=== PATIENT | male | born 1970 | race Caucasian/White ===

== ENCOUNTER 2017-06-16 08:27 | Emergency (ER) | payer MEDICARE, MEDICAID ==
[~2017-06-16] VITALS: Ht 170.2 cm; Wt 90.9 kg
[~2017-06-16 08:27] MED LIST: CARB200T PO; CITA20TA2 PO; IBUP-1986 PO; KEP500T PO; ONDA4TAB6 PO; PRAZ1CAP2 PO; QUET100T33 PO; TOPI100T18 PO; TRAZ-146 PO
[2017-06-16 08:35] VITALS: BP 129/97
== END 2017-06-16 09:03 | disposition home or self-care (01) ==
LOC: ER 08:28
DX: T14.8XXA Other injury of unspecified body region, initial encounter (principal); F15.10 Other stimulant abuse, uncomplicated; L50.9 Urticaria, unspecified; I10 Essential (primary) hypertension; Z98.890 Other specified postprocedural states; Z79.899 Other long term (current) drug therapy; W57.XXXA Bitten or stung by nonvenomous insect and other nonvenomous arthropods, initial encounter; Y93.89 Activity, other specified; Y92.89 Other specified places as the place of occurrence of the external cause; Y99.8 Other external cause status
CPT/HCPCS: 99281

== ENCOUNTER 2017-06-21 09:28 | Emergency (ER) | payer MEDICARE, MEDICAID ==
[~2017-06-21] VITALS: Ht 170.2 cm; Wt 90.0 kg
[2017-06-21 09:47] VITALS: BP 168/104
[2017-06-21] MEDS ORDERED: PERM60CR19 TP (12:00)
== END 2017-06-21 12:08 | disposition home or self-care (01) ==
LOC: ER 09:29
DX: B86 Scabies (principal); I10 Essential (primary) hypertension; F15.10 Other stimulant abuse, uncomplicated; Z88.8 Allergy status to other drugs, medicaments and biological substances; Z79.899 Other long term (current) drug therapy
CPT/HCPCS: 99283

== ENCOUNTER 2017-07-31 22:57 | Emergency (ER) | payer MEDICARE, MEDICAID ==
[~2017-07-31] VITALS: Ht 170.2 cm; Wt 84.7 kg
[2017-07-31] MEDS ORDERED: diphenhydrAMINE 25mg capsule PO ONE (23:55)
[2017-08-01 00:30] LABS: BASOPHILS % (AUTO) 0.3 % (0-1); EOSINOPHILS # (AUTO) 0.1 X10'3 (0-0.9); EOSINOPHILS % (AUTO) 1.9 % (0-6); HEMATOCRIT 45.2 % (42.0-52.0); HEMOGLOBIN 15.8 g/dl (14.0-17.9); LYMPHOCYTES # (AUTO) 1.4 X10'3 (1.1-4.8); LYMPHOCYTES % (AUTO) 20.4 % (21-51); MEAN CORPUSCULAR HEMOGLOBIN 31.2 PG (27.0-31.0); MEAN CORPUSCULAR HGB CONC 34.9 % (33.0-36.5); MEAN CORPUSCULAR VOLUME 89.5 FL (78-98); MEAN PLATELET VOLUME 7.9 FL (7.4-10.4); MONOCYTES # (AUTO) 0.6 X10'3 (0-0.9); MONOCYTES % (AUTO) 8.8 % (2-12); NEUTROPHILS # (AUTO) 4.7 X10'3 (1.8-7.7); NEUTROPHILS % (AUTO) 68.6 % (42-75); PLATELET COUNT 237 X10'3 (140-440); RED BLOOD COUNT 5.05 X10'6 (4.70-6.10); WHITE BLOOD COUNT 6.8 X10'3 (4.5-11.0)
[2017-08-01 00:30] LABS: CLARITY,URINE CLEAR (Clear); COLOR,URINE YELLOW (Yellow); GLUCOSE, URINE 250 mg/dl (Neg); KETONES,URINE TRACE mg/dl (Neg); LEUKOCYTE ESTERASE ,URINE NEGATIVE (Neg); NITRITES, URINE NEGATIVE (Neg); OCCULT BLOOD,URINE MODERATE (Neg); PROTEIN,URINE NEGATIVE (Neg)
[2017-08-01 00:35] LABS: BACTERIA,URINE NONE SEEN /HPF (Neg); RBC,URINE 0-2 /HPF (0-2); SQUAMOUS EPITHELIAL CELL,UR FEW /LPF (FEW); UA COLLECTION TYPE CLN CATCH MIDSTREAM; WBC,URINE NONE SEEN /HPF (0-4)
[2017-08-01 00:43] LABS: ALANINE AMINOTRANSFERASE 29 U/L (12-78); ALBUMIN 4.3 G/DL (3.4-5.0); ALBUMIN/GLOBULIN RATIO 1.2 (1.1-1.5); ALKALINE PHOSPHATASE 96 IU/L (46-116); ANION GAP 16 (8-16); ASPARTATE AMINO TRANSFERASE 24 U/L (10-37); BILIRUBIN,TOTAL 0.7 MG/DL (0.1-1.0); BLOOD UREA NITROGEN 6 MG/DL (7-18); BUN/CREATININE RATIO 8.1 (5.4-32.0); CALCIUM 8.8 MG/DL (8.5-10.1); CHLORIDE 95 MMOL/L (99-107); CREATININE 0.74 MG/DL (0.60-1.10); GLUCOSE 147 MG/DL (70-104); POTASSIUM 3.5 MMOL/L (3.5-5.1); SODIUM 132 MMOL/L (135-145); TOTAL CARBON DIOXIDE 21.4 MMOL/L (24-32); eGFR > 90 ML/MIN
[2017-08-01 00:44] LABS: URINE AMPHETAMINE SCREEN POSITIVE (Neg); URINE BARBITUATE SCREEN NEGATIVE (Neg); URINE BENZODIAZEPINES SCREEN NEGATIVE (Neg); URINE CANNABINOID SCREEN NEGATIVE (Neg); URINE COCAINE SCREEN NEGATIVE (Neg); URINE METHADONE SCREEN NEGATIVE (Neg); URINE OPIATE SCREEN POSITIVE (Neg); URINE PHENCYCLIDINE SCREEN NEGATIVE (Neg)
[2017-08-01 00:58] LABS: ETHANOL 0.096 GM/DL (0.0-0.010)
[2017-08-01 01:00] LABS: ACETAMINOPHEN < 2.0 UG/ML (10-30)
[2017-08-01] MEDS ORDERED: RISP1TAB13 PO (05:16)
[2017-08-01] MEDS: topiramate 100mg tablet PO SCH (07:40)
[2017-08-01] MEDS: levetiracetam 250mg tablet PO SCH ×2 (07:40→20:17)
[2017-08-01] MEDS: risperiDONE 0.5mg tablet PO SCH ×2 (07:41→20:19)
[2017-08-01] MEDS ORDERED: carBAMazepine Ext. Release 200 MG TAB.ER.12H PO SCH (08:00)
[2017-08-01] MEDS ORDERED: phenobarbital inj 260 MG in normal saline 100ml IV soln 99 ML IV STA (11:06)
[2017-08-01] MEDS ORDERED: magnesium oxide 400mg tablet PO ONE (11:10)
[2017-08-01] MEDS ORDERED: normal saline 1000ML IV soln IVB ONE (11:10)
[2017-08-01] MEDS ORDERED: thiamine 100mg tablet PO ONE (11:10)
[2017-08-01] MEDS ORDERED: ARIP5TAB20 PO (15:06)
[2017-08-01] MEDS ORDERED: METF500T6 PO (15:06)
[2017-08-01] MEDS ORDERED: FLUO40CA PO (15:06)
[2017-08-01] MEDS ORDERED: TRAZ-146 PO (15:06)
[2017-08-01] MEDS ORDERED: PRAZ2CAP2 PO (15:06)
[2017-08-01] MEDS: prazosin 1mg capsule PO SCH (20:17)
[2017-08-01] MEDS: metFORMIN 500mg tablet PO SCH (20:17)
[2017-08-01] MEDS: carBAMazepine Ext. Release 200 MG TAB.ER.12H PO SCH (20:19)
[2017-08-01] MEDS ORDERED: traZODone 50mg tablet PO SCH (21:00)
[2017-08-02 07:56] VITALS: BP 127/80
[2017-08-02] MEDS ORDERED: aripiprazole 5mg tablet PO SCH (08:00)
[2017-08-02] MEDS ORDERED: FLUoxetine 20mg capsule PO SCH (08:00)
[2017-08-02] MEDS: prazosin 1mg capsule PO SCH (09:16)
[2017-08-02] MEDS: levetiracetam 250mg tablet PO SCH (09:17)
[2017-08-02] MEDS: carBAMazepine Ext. Release 200 MG TAB.ER.12H PO SCH (09:17)
[2017-08-02] MEDS: risperiDONE 0.5mg tablet PO SCH (09:18)
[2017-08-02] MEDS: metFORMIN 500mg tablet PO SCH (09:18)
[2017-08-02] MEDS: topiramate 100mg tablet PO SCH (09:20)
== END 2017-08-02 15:10 | disposition home or self-care (01) ==
LOC: ER 22:58
DX: R44.3 Hallucinations, unspecified (principal); R45.851 Suicidal ideations; F10.10 Alcohol abuse, uncomplicated; F19.10 Other psychoactive substance abuse, uncomplicated; I10 Essential (primary) hypertension; F17.200 Nicotine dependence, unspecified, uncomplicated; Z79.899 Other long term (current) drug therapy
CPT/HCPCS: 36415; 80053; 80305; 80320; 80329; 81001; 82948; 84443; 85025; 93005; 96365; 99285; J2560; J7030; Q0163

== ENCOUNTER 2017-09-04 19:37 | Emergency (ER) | payer MEDICARE, MEDICAID ==
[~2017-09-04] VITALS: Ht 170.2 cm; Wt 85.0 kg
[~2017-09-04 19:37] MED LIST changes: +ARIP5TAB20 PO; -CITA20TA2 PO; +FLUO40CA PO; -IBUP-1986 PO; +METF500T6 PO; -ONDA4TAB6 PO; -PRAZ1CAP2 PO; +PRAZ2CAP2 PO; -QUET100T33 PO; +RISP1TAB13 PO
[2017-09-04 19:45] VITALS: BP 172/107
[2017-09-04] MEDS ORDERED: PERM60CR19 TP (20:18)
== END 2017-09-04 20:25 | disposition home or self-care (01) ==
LOC: ER 19:37
DX: S60.562A Insect bite (nonvenomous) of left hand, initial encounter (principal); I10 Essential (primary) hypertension; Z86.14 Personal history of Methicillin resistant Staphylococcus aureus infection; Z90.49 Acquired absence of other specified parts of digestive tract; Z88.8 Allergy status to other drugs, medicaments and biological substances; Z79.84 Long term (current) use of oral hypoglycemic drugs; Z79.899 Other long term (current) drug therapy; W57.XXXA Bitten or stung by nonvenomous insect and other nonvenomous arthropods, initial encounter; Y93.89 Activity, other specified; Y92.89 Other specified places as the place of occurrence of the external cause; Y99.8 Other external cause status
CPT/HCPCS: 99284

== ENCOUNTER 2017-10-04 09:11 | Emergency (ER) | payer MEDICARE, MEDICAID ==
[~2017-10-04] VITALS: Ht 584.7 cm; Wt 81.0 kg
[~2017-10-04 09:11] MED LIST changes: +PERM60CR19 TP
[2017-10-04] MEDS ORDERED: OLAN2.5T3 PO (09:45)
[2017-10-04 09:59] LABS: BASOPHILS % (AUTO) 0.4 % (0-1); EOSINOPHILS # (AUTO) 0.1 X10'3 (0-0.9); EOSINOPHILS % (AUTO) 1.8 % (0-6); HEMATOCRIT 40.4 % (42.0-52.0); HEMOGLOBIN 14.3 g/dl (14.0-17.9); LYMPHOCYTES # (AUTO) 1.1 X10'3 (1.1-4.8); LYMPHOCYTES % (AUTO) 15.3 % (21-51); MEAN CORPUSCULAR HEMOGLOBIN 31.8 PG (27.0-31.0); MEAN CORPUSCULAR HGB CONC 35.3 % (33.0-36.5); MEAN CORPUSCULAR VOLUME 90.1 FL (78-98); MEAN PLATELET VOLUME 8.1 FL (7.4-10.4); MONOCYTES # (AUTO) 0.6 X10'3 (0-0.9); MONOCYTES % (AUTO) 8.9 % (2-12); NEUTROPHILS # (AUTO) 5.4 X10'3 (1.8-7.7); NEUTROPHILS % (AUTO) 73.6 % (42-75); PLATELET COUNT 181 X10'3 (140-440); RED BLOOD COUNT 4.49 X10'6 (4.70-6.10); RED CELL DISTRIBUTION WIDTH 13.2 % (11.5-14.5); WHITE BLOOD COUNT 7.3 X10'3 (4.5-11.0)
[2017-10-04 10:09] LABS: COLOR,URINE YELLOW (Yellow); GLUCOSE, URINE NEGATIVE (Neg); KETONES,URINE NEGATIVE (Neg); LEUKOCYTE ESTERASE ,URINE NEGATIVE (Neg); NITRITES, URINE NEGATIVE (Neg); OCCULT BLOOD,URINE SMALL (Neg); PH,URINE 5.5 (4.8-8.0); PROTEIN,URINE TRACE mg/dl (Neg); UROBILINOGEN,URINE 0.2 E.U/dL (0.2-1.0)
[2017-10-04 10:18] LABS: CLARITY,URINE SLIGHTLY CLOUDY (Clear); UA COLLECTION TYPE VOIDED
[2017-10-04 10:20] LABS: URINE AMPHETAMINE SCREEN NEGATIVE (Neg); URINE BARBITUATE SCREEN NEGATIVE (Neg); URINE BENZODIAZEPINES SCREEN NEGATIVE (Neg); URINE CANNABINOID SCREEN NEGATIVE (Neg); URINE COCAINE SCREEN NEGATIVE (Neg); URINE METHADONE SCREEN NEGATIVE (Neg); URINE OPIATE SCREEN NEGATIVE (Neg); URINE PHENCYCLIDINE SCREEN NEGATIVE (Neg); WBC,URINE 0-4 /HPF (0-4)
[2017-10-04 10:21] LABS: ALANINE AMINOTRANSFERASE 30 U/L (12-78); ALBUMIN 4.1 G/DL (3.4-5.0); ALBUMIN/GLOBULIN RATIO 1.1 (1.1-1.5); ALKALINE PHOSPHATASE 107 IU/L (46-116); ANION GAP 11 (8-16); ASPARTATE AMINO TRANSFERASE 22 U/L (10-37); BILIRUBIN,TOTAL 0.5 MG/DL (0.1-1.0); BLOOD UREA NITROGEN 9 MG/DL (7-18); BUN/CREATININE RATIO 8.9 (5.4-32.0); CALCIUM 8.7 MG/DL (8.5-10.1); CHLORIDE 101 MMOL/L (99-107); CREATININE 1.01 MG/DL (0.60-1.10); GLUCOSE 160 MG/DL (70-104); SODIUM 139 MMOL/L (135-145); TOTAL CARBON DIOXIDE 27.2 MMOL/L (24-32); TOTAL PROTEIN 7.8 G/DL (6.4-8.2); eGFR 79 ML/MIN
[2017-10-04 10:21] LABS: RBC,URINE 0-2 /HPF (0-2)
[2017-10-04 10:22] LABS: AMORPHOUS URATES 1+; BACTERIA,URINE NONE SEEN /HPF (Neg); FINE GRANULAR CAST 0-3 /LPF (NEGATIVE); MUCUS STRANDS MODERATE /LPF (Neg); SQUAMOUS EPITHELIAL CELL,UR FEW /LPF (FEW)
[2017-10-04 10:25] LABS: ETHANOL < 0.010 GM/DL (0.0-0.010)
[2017-10-04] MEDS: levetiracetam 250mg tablet PO SCH (20:44)
[2017-10-04] MEDS: risperiDONE 0.5mg tablet PO SCH (20:44)
[2017-10-04] MEDS: carBAMazepine Ext. Release 200 MG TAB.ER.12H PO SCH (20:45)
[2017-10-04] MEDS: metFORMIN 500mg tablet PO SCH (20:45)
[2017-10-04] MEDS ORDERED: prazosin 1mg capsule PO SCH (21:00)
[2017-10-04] MEDS ORDERED: OLANZapine 2.5MG tablet PO SCH (21:00)
[2017-10-04] MEDS ORDERED: traZODone 50mg tablet PO SCH (21:00)
[2017-10-05 05:31] VITALS: BP 123/78
[2017-10-05] MEDS ORDERED: aripiprazole 5mg tablet PO SCH (08:00)
[2017-10-05] MEDS ORDERED: FLUoxetine 20mg capsule PO SCH (08:00)
[2017-10-05] MEDS ORDERED: topiramate 100mg tablet PO SCH (08:00)
[2017-10-05] MEDS: carBAMazepine Ext. Release 200 MG TAB.ER.12H PO SCH (08:49)
[2017-10-05] MEDS: metFORMIN 500mg tablet PO SCH (08:49)
[2017-10-05] MEDS: levetiracetam 250mg tablet PO SCH (08:50)
[2017-10-05] MEDS: risperiDONE 0.5mg tablet PO SCH (08:50)
== END 2017-10-05 10:30 ==
LOC: ER 09:11
DX: R45.851 Suicidal ideations (principal); I10 Essential (primary) hypertension; F15.90 Other stimulant use, unspecified, uncomplicated; Z86.14 Personal history of Methicillin resistant Staphylococcus aureus infection; Z90.49 Acquired absence of other specified parts of digestive tract; Z98.890 Other specified postprocedural states; Z88.8 Allergy status to other drugs, medicaments and biological substances; Z79.84 Long term (current) use of oral hypoglycemic drugs; Z79.899 Other long term (current) drug therapy
CPT/HCPCS: 36415; 80053; 80305; 80320; 81001; 84443; 85025; 99285

== ENCOUNTER 2017-10-04 20:45 | Inpatient (IN) | payer MEDICARE, MEDICAID ==
[~2017-10-04] VITALS: Ht 170.2 cm; Wt 86.0 kg
[~2017-10-04 20:45] MED LIST changes: +OLAN2.5T3 PO
[2017-10-05 10:45] VITALS: BP 148/84
[2017-10-05] MEDS ORDERED: acetaminophen 325mg tablet PO PRN ×2 (12:20)
[2017-10-05] MEDS ORDERED: magnesium hydroxide 30ml (MOM) UD suspension PO PRN (12:20)
[2017-10-05] MEDS ORDERED: mag hydrox/Alum hydrox/simeth 30ml oral suspension PO PRN (12:20)
[2017-10-05 20:00] VITALS: BP 120/78
[2017-10-05] MEDS ORDERED: non-formulary drug (Levetiracetam (Keppra) 2 TAB) PO SCH (20:00)
[2017-10-05] MEDS ORDERED: non-formulary drug (Carbamazepine (Tegretol) 1 TAB) PO SCH (20:00)
[2017-10-05] MEDS ORDERED: RISPERIDONE PO SCH (20:00)
[2017-10-05] MEDS ORDERED: TRAZODONE HCL 200 MG PO SCH (21:00)
[2017-10-05] MEDS ORDERED: OLANZapine 5mg rapidly disint. tablet PO SCH (21:00)
[2017-10-05] MEDS ORDERED: non-formulary drug (Prazosin Hcl 2 MG) PO SCH (21:00)
[2017-10-05 21:06] VITALS: BP 120/78
[2017-10-05] MEDS: traZODone 50mg tablet PO SCH (21:18)
[2017-10-05] MEDS: metFORMIN 500mg tablet PO SCH (21:18)
[2017-10-05] MEDS: prazosin 1mg capsule PO SCH (21:18)
[2017-10-05] MEDS: risperiDONE 0.5mg tablet PO SCH (21:19)
[2017-10-05] MEDS: carBAMazepine 100mg chewable tablet PO SCH (21:20)
[2017-10-05] MEDS: levetiracetam 250mg tablet PO SCH (21:21)
[2017-10-06 07:59] VITALS: BP 152/118
[2017-10-06] MEDS ORDERED: topiramate 100mg tablet PO SCH (08:00)
[2017-10-06] MEDS ORDERED: aripiprazole 5mg tablet PO SCH (08:00)
[2017-10-06] MEDS ORDERED: FLUOXETINE HCL 40 MG PO SCH (08:00)
[2017-10-06] MEDS: metFORMIN 500mg tablet PO SCH ×2 (08:10→20:22)
[2017-10-06] MEDS: carBAMazepine 100mg chewable tablet PO SCH ×2 (08:10→20:22)
[2017-10-06] MEDS: levetiracetam 250mg tablet PO SCH ×2 (08:10→20:22)
[2017-10-06] MEDS: FLUoxetine 20mg capsule PO SCH (08:10)
[2017-10-06] MEDS: risperiDONE 0.5mg tablet PO SCH ×2 (08:11→20:23)
[2017-10-06 08:23] LABS: HEMOGLOBIN A1C 6.8 % (4.5-6.2)
[2017-10-06 08:34] LABS: CHOL/HDL RATIO 5.2 (0.00-4.99); CHOLESTEROL 187 MG/DL (0-200); HDL CHOLESTEROL 36 MG/DL (35-60); LDL CHOLESTEROL 114 MG/DL (50-100); TRIGLYCERIDES 257 MG/DL (20-135)
[2017-10-06 20:00] VITALS: BP 132/80
[2017-10-06] MEDS: prazosin 1mg capsule PO SCH (20:23)
[2017-10-06] MEDS: traZODone 50mg tablet PO SCH (20:23)
[2017-10-07 08:00] VITALS: BP 140/72
[2017-10-07] MEDS ORDERED: aripiprazole 5mg tablet PO SCH (08:00)
[2017-10-07] MEDS: levetiracetam 250mg tablet PO SCH ×2 (08:17→20:22)
[2017-10-07] MEDS: metFORMIN 500mg tablet PO SCH ×2 (08:19→20:21)
[2017-10-07] MEDS: FLUoxetine 20mg capsule PO SCH (08:19)
[2017-10-07] MEDS: carBAMazepine 100mg chewable tablet PO SCH ×2 (08:20→20:22)
[2017-10-07] MEDS: risperiDONE 0.5mg tablet PO SCH ×2 (08:20→20:23)
[2017-10-07 19:00] VITALS: BP 137/75
[2017-10-07] MEDS: traZODone 50mg tablet PO SCH (20:22)
[2017-10-07] MEDS: prazosin 1mg capsule PO SCH (20:23)
[2017-10-08 08:00] VITALS: BP 143/78
[2017-10-08] MEDS: levetiracetam 250mg tablet PO SCH ×2 (08:01→20:11)
[2017-10-08] MEDS: metFORMIN 500mg tablet PO SCH ×2 (08:01→20:11)
[2017-10-08] MEDS: FLUoxetine 20mg capsule PO SCH (08:02)
[2017-10-08] MEDS: aripiprazole 5mg tablet PO SCH (08:02)
[2017-10-08] MEDS: carBAMazepine 100mg chewable tablet PO SCH ×2 (08:02→20:12)
[2017-10-08 20:08] VITALS: BP 120/70
[2017-10-08] MEDS: prazosin 1mg capsule PO SCH (20:12)
[2017-10-08] MEDS: traZODone 50mg tablet PO SCH (20:12)
[2017-10-08] MEDS: risperiDONE 0.5mg tablet PO SCH (20:13)
[2017-10-09] MEDS: levetiracetam 250mg tablet PO SCH ×2 (07:43→20:22)
[2017-10-09] MEDS: metFORMIN 500mg tablet PO SCH ×2 (07:43→20:22)
[2017-10-09] MEDS: FLUoxetine 20mg capsule PO SCH (07:43)
[2017-10-09] MEDS: carBAMazepine 100mg chewable tablet PO SCH ×2 (07:43→20:21)
[2017-10-09 08:00] VITALS: BP 133/88
[2017-10-09] MEDS: aripiprazole 5mg tablet PO SCH (08:15)
[2017-10-09] MEDS ORDERED: aripiprazole 5mg tablet PO ONE (15:10)
[2017-10-09 19:29] VITALS: BP 157/96
[2017-10-09] MEDS: prazosin 1mg capsule PO SCH (20:21)
[2017-10-09] MEDS: traZODone 50mg tablet PO SCH (20:22)
[2017-10-10] MEDS: levetiracetam 250mg tablet PO SCH ×2 (07:54→20:35)
[2017-10-10] MEDS: metFORMIN 500mg tablet PO SCH ×2 (07:54→20:35)
[2017-10-10] MEDS: FLUoxetine 20mg capsule PO SCH (07:54)
[2017-10-10] MEDS: carBAMazepine 100mg chewable tablet PO SCH ×2 (07:55→20:35)
[2017-10-10 08:00] VITALS: BP 133/87
[2017-10-10 19:53] VITALS: BP 138/81
[2017-10-10] MEDS: prazosin 1mg capsule PO SCH (20:34)
[2017-10-10] MEDS: aripiprazole 5mg tablet PO SCH (20:34)
[2017-10-10] MEDS: traZODone 50mg tablet PO SCH (20:35)
[2017-10-11 08:00] VITALS: BP 131/83
[2017-10-11] MEDS: levetiracetam 250mg tablet PO SCH ×2 (08:37→21:02)
[2017-10-11] MEDS: metFORMIN 500mg tablet PO SCH ×2 (08:38→21:03)
[2017-10-11] MEDS: carBAMazepine 100mg chewable tablet PO SCH ×2 (08:38→21:03)
[2017-10-11] MEDS: FLUoxetine 20mg capsule PO SCH (08:38)
[2017-10-11 20:05] VITALS: BP 147/80
[2017-10-11] MEDS: aripiprazole 5mg tablet PO SCH (21:02)
[2017-10-11] MEDS: prazosin 1mg capsule PO SCH (21:02)
[2017-10-11] MEDS: traZODone 50mg tablet PO SCH (21:02)
[2017-10-12 08:00] VITALS: BP 127/76
[2017-10-12] MEDS: metFORMIN 500mg tablet PO SCH (08:06)
[2017-10-12] MEDS: FLUoxetine 20mg capsule PO SCH (08:06)
[2017-10-12] MEDS: carBAMazepine 100mg chewable tablet PO SCH (08:06)
[2017-10-12] MEDS: levetiracetam 250mg tablet PO SCH (08:06)
[2017-10-12] MEDS ORDERED: ARIP30TA11 PO (10:58)
== END 2017-10-12 14:15 | disposition home or self-care (01) | DRG 885 ==
LOC: ADULT MH 20:45
PROVIDERS: ADMIT Psychiatry & Neurology Psychiatry; ATTEND Psychiatry & Neurology Psychiatry
DX: F20.3 Undifferentiated schizophrenia (principal); R45.851 Suicidal ideations; E11.9 Type 2 diabetes mellitus without complications; F10.21 Alcohol dependence, in remission; F15.10 Other stimulant abuse, uncomplicated; F32.9 Major depressive disorder, single episode, unspecified; F43.10 Post-traumatic stress disorder, unspecified; F43.20 Adjustment disorder, unspecified; G40.909 Epilepsy, unspecified, not intractable, without status epilepticus; I10 Essential (primary) hypertension; E66.9 Obesity, unspecified; Z88.8 Allergy status to other drugs, medicaments and biological substances; Z79.84 Long term (current) use of oral hypoglycemic drugs; Z79.899 Other long term (current) drug therapy; Z83.3 Family history of diabetes mellitus; Z68.29 Body mass index [BMI] 29.0-29.9, adult
CPT/HCPCS: 36415; 80061; 82948; 83036

== ENCOUNTER 2018-02-20 06:49 | Emergency (ER) | payer MEDICARE, MEDICAID ==
[~2018-02-20] VITALS: Ht 170.2 cm; Wt 77.3 kg
[~2018-02-20 06:49] MED LIST changes: +ARIP30TA11 PO; -ARIP5TAB20 PO; +METF-950 PO; -METF500T6 PO; -OLAN2.5T3 PO; -PERM60CR19 TP; -RISP1TAB13 PO; -TOPI100T18 PO; -TRAZ-146 PO; +TRAZ-219 PO
[2018-02-20 06:54] VITALS: BP 153/86
[2018-02-20] MEDS ORDERED: LIDOcaine 1.5% w/epinephrine 1:200,000 5ml ampul IJ ONE (07:40)
[2018-02-20] MEDS ORDERED: LIDOcaine 1% w/epiNEPHrine 1:200,000 30ml vial IJ ONE (07:50)
[2018-02-20] MEDS ORDERED: SULF1TAB49 PO (08:17)
== END 2018-02-20 08:49 | disposition home or self-care (01) ==
LOC: ER 06:50
DX: L02.31 Cutaneous abscess of buttock (principal); I10 Essential (primary) hypertension; E11.9 Type 2 diabetes mellitus without complications; Z86.14 Personal history of Methicillin resistant Staphylococcus aureus infection; F15.90 Other stimulant use, unspecified, uncomplicated; Z90.49 Acquired absence of other specified parts of digestive tract; Z88.8 Allergy status to other drugs, medicaments and biological substances; Z79.84 Long term (current) use of oral hypoglycemic drugs; Z79.899 Other long term (current) drug therapy
CPT/HCPCS: 10060; 99283; J3490

== ENCOUNTER 2018-03-26 07:28 | Emergency (ER) | payer MEDICARE, MEDICAID ==
[~2018-03-26] VITALS: Ht 170.2 cm; Wt 81.8 kg
[2018-03-26 07:39] VITALS: BP 144/77
[2018-03-26] MEDS ORDERED: CLIN300C85 PO (07:59)
== END 2018-03-26 08:17 | disposition home or self-care (01) ==
LOC: ER 07:29
DX: L03.317 Cellulitis of buttock (principal); I10 Essential (primary) hypertension; Z86.14 Personal history of Methicillin resistant Staphylococcus aureus infection; F15.90 Other stimulant use, unspecified, uncomplicated; Z90.49 Acquired absence of other specified parts of digestive tract; Z88.8 Allergy status to other drugs, medicaments and biological substances; Z79.84 Long term (current) use of oral hypoglycemic drugs; Z79.899 Other long term (current) drug therapy
CPT/HCPCS: 82948; 99283

== ENCOUNTER 2018-03-31 23:17 | Emergency (ER) | payer MEDICARE, MEDICAID ==
[~2018-03-31] VITALS: Ht 167.6 cm; Wt 79.5 kg
[~2018-03-31 23:17] MED LIST changes: +CLIN300C85 PO
[2018-04-01 01:11] LABS: BASOPHILS % (AUTO) 0.6 % (0-1); EOSINOPHILS # (AUTO) 0.2 X10'3 (0-0.9); EOSINOPHILS % (AUTO) 1.9 % (0-6); HEMATOCRIT 46.3 % (42.0-52.0); HEMOGLOBIN 16.2 g/dl (14.0-17.9); LYMPHOCYTES # (AUTO) 1.1 X10'3 (1.1-4.8); MEAN CORPUSCULAR VOLUME 91.3 FL (78-98); MEAN PLATELET VOLUME 7.4 FL (7.4-10.4); MONOCYTES # (AUTO) 0.5 X10'3 (0-0.9); MONOCYTES % (AUTO) 6.1 % (2-12); NEUTROPHILS # (AUTO) 6.5 X10'3 (1.8-7.7); NEUTROPHILS % (AUTO) 78.4 % (42-75); PLATELET COUNT 294 X10'3 (140-440); RED BLOOD COUNT 5.07 X10'6 (4.70-6.10); RED CELL DISTRIBUTION WIDTH 13.6 % (11.5-14.5); WHITE BLOOD COUNT 8.3 X10'3 (4.5-11.0)
[2018-04-01 01:27] LABS: ALANINE AMINOTRANSFERASE 31 U/L (12-78); ALBUMIN 4.5 G/DL (3.4-5.0); ALBUMIN/GLOBULIN RATIO 1.1 (1.1-1.5); ALKALINE PHOSPHATASE 108 IU/L (46-116); ANION GAP 17 (8-16); ASPARTATE AMINO TRANSFERASE 28 U/L (10-37); BILIRUBIN,TOTAL 0.6 MG/DL (0.1-1.0); BLOOD UREA NITROGEN 9 MG/DL (7-18); BUN/CREATININE RATIO 12.2 (5.4-32.0); CALCIUM 9.3 MG/DL (8.5-10.1); CHLORIDE 91 MMOL/L (99-107); CREATININE 0.74 MG/DL (0.60-1.10); ETHANOL 0.013 GM/DL (0.0-0.010); GLUCOSE 86 MG/DL (70-104); POTASSIUM 4.3 MMOL/L (3.5-5.1); SODIUM 129 MMOL/L (135-145); TOTAL CARBON DIOXIDE 21.2 MMOL/L (24-32); TOTAL PROTEIN 8.7 G/DL (6.4-8.2); eGFR > 90 ML/MIN
[2018-04-01] MEDS ORDERED: CARB200T PO (03:01)
[2018-04-01 03:19] LABS: URINE AMPHETAMINE SCREEN POSITIVE (Neg); URINE BARBITUATE SCREEN NEGATIVE (Neg); URINE BENZODIAZEPINES SCREEN NEGATIVE (Neg); URINE CANNABINOID SCREEN NEGATIVE (Neg); URINE COCAINE SCREEN NEGATIVE (Neg); URINE METHADONE SCREEN NEGATIVE (Neg); URINE OPIATE SCREEN NEGATIVE (Neg); URINE PHENCYCLIDINE SCREEN NEGATIVE (Neg)
--- NOTE | 2018-04-01 07:48 | NUR ---
Patient in bed sleeping appears comfortable. Enviroment is safe. RN has close observation of patient
--- NOTE | 2018-04-01 10:52 | NUR ---
PATIENT IN BED SLEEPING. HE WILL BE EVALUATED BY [facility] TODAY.
--- NOTE | 2018-04-01 14:48 | NUR ---
PATIENT IN BED AWAKE, [facility] AT BEDSIDE.
[2018-04-01] MEDS: clindamycin 150mg capsule PO SCH ×2 (14:57→20:39)
[2018-04-01] MEDS: aripiprazole 5mg tablet PO SCH (20:38)
[2018-04-01] MEDS: traZODone 50mg tablet PO SCH (20:39)
[2018-04-01] MEDS: levetiracetam 250mg tablet PO SCH (20:40)
[2018-04-01] MEDS: carBAMazepine 100mg chewable tablet PO SCH (20:42)
[2018-04-01] MEDS: metFORMIN 500mg tablet PO SCH (20:42)
[2018-04-01] MEDS: prazosin 1mg capsule PO SCH (21:51)
[2018-04-02] MEDS: clindamycin 150mg capsule PO SCH ×4 (02:49→20:25)
--- NOTE | 2018-04-02 04:28 | NUR ---
UP TO BR, IMMEDIATELY BACK TO BED.
--- NOTE | 2018-04-02 07:31 | NUR ---
Patient is sleeping supine. Respirations are even and nonlabored.
[2018-04-02] MEDS: levetiracetam 250mg tablet PO SCH ×2 (08:28→20:25)
[2018-04-02] MEDS: FLUoxetine 20mg capsule PO SCH (08:28)
[2018-04-02] MEDS: carBAMazepine 100mg chewable tablet PO SCH ×2 (08:29→20:25)
[2018-04-02] MEDS: metFORMIN 500mg tablet PO SCH ×2 (08:54→20:25)
--- NOTE | 2018-04-02 09:54 | NUR ---
Patient awoke for breakfast and took a.m. meds. Patient states that he is doing "bad", same as yesterday. Patient now sleeping.
--- NOTE | 2018-04-02 14:53 | NUR ---
Patient has been eating 100% of all meals. Medication compliant. Patient has been sleeping most of the day. Patient does have history of DMII, accucheck was 107. Patient does not check BGM at home.
--- NOTE | 2018-04-02 16:06 | NUR ---
Patient up to the restroom, walking unit. Pt. walks with a slight limp, but is steady on feet. Patient then asked and received a snack. Patient cooperative, depressed.
--- NOTE | 2018-04-02 17:42 | NUR ---
Patient resting comfortably in bed.
--- NOTE | 2018-04-02 18:28 | NUR ---
Report rec'd, [facility]. Eating dinner currently.
--- NOTE | 2018-04-02 18:58 | NUR ---
Patient moved to ER OF Bed 25
--- NOTE | 2018-04-02 19:18 | NUR ---
Resting in bed, awake. Denies new needs.
[2018-04-02] MEDS: aripiprazole 5mg tablet PO SCH (20:24)
[2018-04-02] MEDS: prazosin 1mg capsule PO SCH (20:24)
[2018-04-02] MEDS: traZODone 50mg tablet PO SCH (20:25)
[2018-04-02] MEDS: lactobacillus rhamnosus 10,000 MMU CELLS/CAPSULE PO SCH (20:25)
--- NOTE | 2018-04-02 20:27 | NUR ---
Patient displaying concern/paranoia in regards to thinking that he would not be given his medications. Reassured that he would, and that this RN was administering at this time. Took medications without issues.
--- NOTE | 2018-04-02 20:32 | NUR ---
Patient noted to be telling another patient to "shut up", was redirected, and pt apologized.
--- NOTE | 2018-04-02 21:08 | NUR ---
Patient resting in bed with eyes closed, resp are even and unlabored, appearing to sleep. Will continue to monitor.
--- NOTE | 2018-04-02 22:00 | NUR ---
Resting in bed, continues to appear to sleep comfortably. Will monitor.
--- NOTE | 2018-04-02 22:57 | NUR ---
Laying in bed, eyes closed, resp are even and unlabored, appears to sleep. Will continue to monitor.
--- NOTE | 2018-04-02 23:56 | NUR ---
Laying in bed, eyes closed, resp are even and unlabored, appears to sleep. Will continue to monitor.
--- NOTE | 2018-04-03 01:29 | NUR ---
Resting in bed, appearing to sleep with even and unlabored respirations. No new concerns or issues noted, will continue to monitor.
[2018-04-03] MEDS: clindamycin 150mg capsule PO SCH ×5 (02:00→21:34)
--- NOTE | 2018-04-03 02:45 | NUR ---
Resting in bed, appearing to sleep, will monitor.
--- NOTE | 2018-04-03 02:51 | NUR ---
Refused 0200 dose of antibiotics, explained risks, continued to refuse, "nope, not gonna take it, don't want to be woke up"
--- NOTE | 2018-04-03 02:54 | NUR ---
schedule times changed to awake hours
--- NOTE | 2018-04-03 04:23 | NUR ---
Resting in bed, appearing to sleep, will monitor.
--- NOTE | 2018-04-03 05:03 | NUR ---
Resting in bed, vitals taken, up to BRP, no new concerns.
--- NOTE | 2018-04-03 07:22 | NUR ---
PT SLEEPING, HAS REQUESTED THAT HE NOT BE BOTHERED WHILE SLEEPING. WILL CHECK SUGARS AND GIVE GLUCOPHAGE WHEN PT WAKES.
[2018-04-03] MEDS: metFORMIN 500mg tablet PO SCH ×2 (08:20→17:13)
[2018-04-03] MEDS: levetiracetam 250mg tablet PO SCH ×2 (08:20→21:35)
[2018-04-03] MEDS: FLUoxetine 20mg capsule PO SCH (08:21)
[2018-04-03] MEDS: lactobacillus rhamnosus 10,000 MMU CELLS/CAPSULE PO SCH ×2 (08:22→21:34)
[2018-04-03] MEDS: carBAMazepine 100mg chewable tablet PO SCH ×3 (08:40→21:35)
--- NOTE | 2018-04-03 09:28 | NUR ---
PT STATES HIS CORRECT DOES OF TEGRATOL IS 400MG BID. CHECK MED REC AND THEN CALL PHARMACY TO CHANGE TO MAY. ADMIN TEGRATOL 400MG THIS MORNING. PT IS COOPERATIVE. HAS EATEN ALL BREAKFAST AND IS NOW SLEEPING.
--- NOTE | 2018-04-03 15:09 | NUR ---
PT IS COOPERATIVE WITH BEING WAKENED TO TAKE HIS ABX.
--- NOTE | 2018-04-03 15:37 | NUR ---
PT AMB TO NURSES STATION TO ASK FOR A YOGURT AND JUICE.
--- NOTE | 2018-04-03 16:35 | NUR ---
PT AMB TO NURSING STATION ASKING FOR SOMETHING TO READ. PT GIVEN MAGAZINES FROM OUR STOCK.
--- NOTE | 2018-04-03 16:36 | NUR ---
PT GIVEN SOME READING GLASSES FROM OUR SUPPLY.
--- NOTE | 2018-04-03 17:15 | NUR ---
PT'S WOUND IS HEALING NICELY. NO SCAB, NO REDNESS, NO SWELLING.
--- NOTE | 2018-04-03 19:00 | NUR ---
Client resting in bed, awake. Recent breakup with girlfriend resulted in loss of housing. Client threatened to harm girlfriend. Hx of substance use. Affect us incongruent with reported depression. Client does not want to be awakened for medications if asleep.
[2018-04-03] MEDS ORDERED: carBAMazepine 100mg chewable tablet PO SCH (20:00)
[2018-04-03] MEDS: traZODone 50mg tablet PO SCH (21:34)
[2018-04-03] MEDS: prazosin 1mg capsule PO SCH (21:36)
[2018-04-03] MEDS: aripiprazole 5mg tablet PO SCH (21:36)
--- NOTE | 2018-04-03 21:45 | NUR ---
Client asleep at 20:00. Took meds at 21:30. Does not want to wake for meds in the "middle of the night". Easily irritated. Returned to sleep after meds. Resp even and unlabored.
--- NOTE | 2018-04-03 23:08 | NUR ---
Resting, eye's closed. Resp even and unlabored.
--- NOTE | 2018-04-04 01:37 | NUR ---
Resting in bed, eye's closed. Respirations are even and unlabored.
--- NOTE | 2018-04-04 03:00 | NUR ---
Resting in bed, eye's closed. No obvious distress. Respirations even and unlabored.
--- NOTE | 2018-04-04 05:09 | NUR ---
Resting in bed, eyes closed. Vital signs obtained, cooperative.
[2018-04-04] MEDS: metFORMIN 500mg tablet PO SCH (07:14)
[2018-04-04] MEDS: clindamycin 150mg capsule PO SCH ×2 (07:26→13:15)
[2018-04-04] MEDS: lactobacillus rhamnosus 10,000 MMU CELLS/CAPSULE PO SCH (07:26)
[2018-04-04] MEDS: FLUoxetine 20mg capsule PO SCH (07:26)
[2018-04-04] MEDS: levetiracetam 250mg tablet PO SCH (07:27)
--- NOTE | 2018-04-04 08:00 | NUR ---
Patient sitting at bedside eating breakfast
[2018-04-04] MEDS: carBAMazepine 100mg chewable tablet PO SCH (08:04)
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
[2018-04-04 14:54] VITALS: BP 184/100
--- NOTE | 2018-04-04 15:00 | NUR ---
pt is being discharged per Toni Mccann from [facility]
== END 2018-04-04 15:03 | disposition home or self-care (01) ==
LOC: ER 23:18
DX: R45.851 Suicidal ideations (principal); R45.850 Homicidal ideations; L02.212 Cutaneous abscess of back [any part, except buttock and flank]; I10 Essential (primary) hypertension; Z86.14 Personal history of Methicillin resistant Staphylococcus aureus infection; F15.90 Other stimulant use, unspecified, uncomplicated; Z90.49 Acquired absence of other specified parts of digestive tract; Z88.8 Allergy status to other drugs, medicaments and biological substances; Z79.84 Long term (current) use of oral hypoglycemic drugs; Z79.899 Other long term (current) drug therapy
CPT/HCPCS: 36415; 80053; 80305; 80320; 82948; 83036; 85025; 99285

== ENCOUNTER 2018-04-13 16:47 | Emergency (ER) | payer MEDICARE, MEDICAID ==
[~2018-04-13] VITALS: Ht 170.2 cm; Wt 85.0 kg
[2018-04-13] MEDS ORDERED: LORazepam 2 mg/ml vial IM ONE (17:05)
[2018-04-13] MEDS ORDERED: levetiracetam 250mg tablet PO ONE (17:05)
--- NOTE | 2018-04-13 17:09 | NUR ---
PT IS 47 YO MALE BIB EMS S/P TONIC/CLONIC SZ LASTING FROM 30SEC TO 3MINUTES PER MEDIC, PT WAS ABLE TO LOWER SELF TO GRD BEFORE HAVING SZ, SAID HE IS COMPLIANT WITH TAKING MEDS PRESCRIBED, STAYING AT THE [facility] FOR 30 DAYS,PT IS ALERT, GCS 15, RESP EVEN AND UNLABORED,
[2018-04-13 17:24] LABS: BASOPHILS % (AUTO) 0.4 % (0-1); EOSINOPHILS # (AUTO) 0.1 X10'3 (0-0.9); EOSINOPHILS % (AUTO) 3.1 % (0-6); HEMOGLOBIN 14.7 g/dl (14.0-17.9); LYMPHOCYTES # (AUTO) 1.2 X10'3 (1.1-4.8); LYMPHOCYTES % (AUTO) 27.1 % (21-51); MEAN CORPUSCULAR HEMOGLOBIN 32.2 PG (27.0-31.0); MEAN CORPUSCULAR HGB CONC 35.1 g/dL (33.0-36.5); MEAN CORPUSCULAR VOLUME 91.7 FL (78-98); MEAN PLATELET VOLUME 8.3 FL (7.4-10.4); MONOCYTES # (AUTO) 0.5 X10'3 (0-0.9); MONOCYTES % (AUTO) 10.9 % (2-12); NEUTROPHILS # (AUTO) 2.5 X10'3 (1.8-7.7); NEUTROPHILS % (AUTO) 58.5 % (42-75); PLATELET COUNT 241 X10'3 (140-440); RED BLOOD COUNT 4.58 X10'6 (4.70-6.10); RED CELL DISTRIBUTION WIDTH 13.6 % (11.5-14.5); WHITE BLOOD COUNT 4.3 X10'3 (4.5-11.0)
[2018-04-13 17:35] LABS: ALBUMIN 3.7 G/DL (3.4-5.0); ANION GAP 9 (8-16); BLOOD UREA NITROGEN 12 MG/DL (7-18); CALCIUM 8.7 MG/DL (8.5-10.1); CHLORIDE 102 MMOL/L (99-107); GLUCOSE 176 MG/DL (70-104); POTASSIUM 3.9 MMOL/L (3.5-5.1); SODIUM 138 MMOL/L (135-145); TOTAL CARBON DIOXIDE 26.9 MMOL/L (24-32); eGFR 79 ML/MIN
--- NOTE | 2018-04-13 17:52 | NUR ---
PT IS RESTING QUIETLY ON GURNEY, ALERT, RESP EVEN AND UNLABORED
--- NOTE | 2018-04-13 18:37 | NUR ---
called [facility] at [phone], mail box is full, unable to leave message or talk with anyone
--- NOTE | 2018-04-13 18:42 | NUR ---
contacted [facility] office at [phone], they are next to [facility] and will let them know pt is ready to go back,
[2018-04-13 18:58] VITALS: BP 127/69
--- NOTE | 2018-04-13 19:01 | NUR ---
pt moved to [facility], waiting to hear back for [facility], pt aware we are waiting to confirm he can return to [facility],
--- NOTE | 2018-04-13 19:13 | NUR ---
pt picked up by county worker and to be taken back to the [facility]
== END 2018-04-13 19:13 | disposition home or self-care (01) ==
LOC: ER 16:47
DX: G40.909 Epilepsy, unspecified, not intractable, without status epilepticus (principal); I10 Essential (primary) hypertension; F15.90 Other stimulant use, unspecified, uncomplicated; Z98.890 Other specified postprocedural states; Z90.49 Acquired absence of other specified parts of digestive tract; Z88.8 Allergy status to other drugs, medicaments and biological substances; Z79.899 Other long term (current) drug therapy
CPT/HCPCS: 36415; 80048; 85025; 96372; 99283; J2060

== ENCOUNTER 2018-05-08 14:45 | Emergency (ER) | payer MEDICARE, MEDICAID ==
[~2018-05-08] VITALS: Ht 170.2 cm; Wt 91.5 kg
[2018-05-08 15:05] VITALS: BP 196/101
[2018-05-08] MEDS ORDERED: levetiracetam 250mg tablet PO ONE (15:10)
[2018-05-08] MEDS ORDERED: KEP500T PO (15:13)
[2018-05-08] MEDS ORDERED: LEVE10002 PO (15:13)
== END 2018-05-08 15:25 | disposition home or self-care (01) ==
LOC: ER 14:45
DX: G40.909 Epilepsy, unspecified, not intractable, without status epilepticus (principal); Z76.0 Encounter for issue of repeat prescription; I10 Essential (primary) hypertension; E11.9 Type 2 diabetes mellitus without complications; Z86.14 Personal history of Methicillin resistant Staphylococcus aureus infection; F15.90 Other stimulant use, unspecified, uncomplicated; Z90.49 Acquired absence of other specified parts of digestive tract; Z88.8 Allergy status to other drugs, medicaments and biological substances; Z79.899 Other long term (current) drug therapy
CPT/HCPCS: 99283

== ENCOUNTER 2018-07-16 13:14 | Emergency (ER) | payer MEDICARE, MEDICAID ==
[~2018-07-16] VITALS: Ht 170.2 cm; Wt 86.4 kg
[~2018-07-16 13:14] MED LIST changes: +CLIN-96 PO; -CLIN300C85 PO; +LEVE10002 PO
[2018-07-16 15:02] VITALS: BP 199/107
[2018-07-16] MEDS ORDERED: carBAMazepine Ext. Release 200 MG TAB.ER.12H PO STA (15:09)
[2018-07-16] MEDS ORDERED: levetiracetam 250mg tablet PO ONE (15:10)
[2018-07-16] MEDS ORDERED: LEVE10002 PO (15:17)
[2018-07-16] MEDS ORDERED: CARB300C6 PO (15:17)
== END 2018-07-16 15:29 | disposition home or self-care (01) ==
LOC: ER 13:14
DX: G40.909 Epilepsy, unspecified, not intractable, without status epilepticus (principal); F15.929 Other stimulant use, unspecified with intoxication, unspecified; F10.10 Alcohol abuse, uncomplicated; E11.9 Type 2 diabetes mellitus without complications; Z86.14 Personal history of Methicillin resistant Staphylococcus aureus infection; Z90.49 Acquired absence of other specified parts of digestive tract; I10 Essential (primary) hypertension; F15.90 Other stimulant use, unspecified, uncomplicated; Z88.8 Allergy status to other drugs, medicaments and biological substances; Z79.84 Long term (current) use of oral hypoglycemic drugs; Z79.899 Other long term (current) drug therapy
CPT/HCPCS: 99283

== ENCOUNTER 2018-07-20 15:25 | Emergency (ER) | payer MEDICARE, MEDICAID ==
[~2018-07-20] VITALS: Ht 170.2 cm; Wt 97.8 kg
[~2018-07-20 15:25] MED LIST changes: +CARB300C6 PO
[2018-07-20 16:15] LABS: BASOPHILS % (AUTO) 0.6 % (0-1); EOSINOPHILS # (AUTO) 0.1 X10'3 (0-0.9); EOSINOPHILS % (AUTO) 2.6 % (0-6); HEMATOCRIT 37.1 % (42.0-52.0); HEMOGLOBIN 13.3 g/dl (14.0-17.9); LYMPHOCYTES % (AUTO) 18.9 % (21-51); MEAN CORPUSCULAR HEMOGLOBIN 30.9 PG (27.0-31.0); MEAN CORPUSCULAR HGB CONC 35.8 g/dL (33.0-36.5); MEAN CORPUSCULAR VOLUME 86.3 FL (78-98); MEAN PLATELET VOLUME 8.3 FL (7.4-10.4); MONOCYTES # (AUTO) 0.4 X10'3 (0-0.9); MONOCYTES % (AUTO) 7.8 % (2-12); NEUTROPHILS # (AUTO) 3.7 X10'3 (1.8-7.7); NEUTROPHILS % (AUTO) 70.1 % (42-75); PLATELET COUNT 213 X10'3 (140-440); RED CELL DISTRIBUTION WIDTH 13.2 % (11.5-14.5); WHITE BLOOD COUNT 5.3 X10'3 (4.5-11.0)
[2018-07-20 16:30] LABS: ALANINE AMINOTRANSFERASE 27 U/L (12-78); ALBUMIN 3.8 G/DL (3.4-5.0); ALBUMIN/GLOBULIN RATIO 1.1 (1.1-1.5); ALKALINE PHOSPHATASE 99 IU/L (46-116); ANION GAP 12 (8-16); ASPARTATE AMINO TRANSFERASE 14 U/L (10-37); BILIRUBIN,TOTAL 0.3 MG/DL (0.1-1.0); BLOOD UREA NITROGEN 6 MG/DL (7-18); CALCIUM 8.3 MG/DL (8.5-10.1); CHLORIDE 100 MMOL/L (99-107); CREATININE 0.86 MG/DL (0.60-1.10); ETHANOL 0.103 GM/DL (0.0-0.010); GLUCOSE 188 MG/DL (70-104); POTASSIUM 3.7 MMOL/L (3.5-5.1); SODIUM 136 MMOL/L (135-145); TOTAL CARBON DIOXIDE 24.2 MMOL/L (24-32); TOTAL PROTEIN 7.3 G/DL (6.4-8.2); eGFR > 90 ML/MIN
[2018-07-20 16:32] LABS: URINE AMPHETAMINE SCREEN NEGATIVE (Neg); URINE BARBITUATE SCREEN NEGATIVE (Neg); URINE BENZODIAZEPINES SCREEN NEGATIVE (Neg); URINE CANNABINOID SCREEN NEGATIVE (Neg); URINE COCAINE SCREEN NEGATIVE (Neg); URINE METHADONE SCREEN NEGATIVE (Neg); URINE OPIATE SCREEN NEGATIVE (Neg); URINE PHENCYCLIDINE SCREEN NEGATIVE (Neg)
--- NOTE | 2018-07-20 16:45 | NUR ---
Pt brought to ER overflow from main ER. Alert and oriented x4, calm and cooperative. Pt tired and wanted to rest and is currently sleeping in bed w/o distress. Pt on 1798 hold for SI.
--- NOTE | 2018-07-20 16:59 | NUR ---
md from will be down in the morning to evaluate patient
--- NOTE | 2018-07-20 18:49 | NUR ---
received report. patient finishing dinner. Quietly resting on R side in bed.
--- NOTE | 2018-07-20 20:11 | NUR ---
Patient quietly resting with eyes closed at this time. No change in condition.
--- NOTE | 2018-07-20 20:39 | NUR ---
[facility] mental health doctor in to eval patient. Patient states that he quit his job a few days ago. Having suicidal thoughts on a daily basis.
--- NOTE | 2018-07-20 22:35 | NUR ---
patient sleeping with no s/sx of distress.
--- NOTE | 2018-07-20 23:32 | NUR ---
patient still sleeping. No s/sx of distress. Laying on R side.
--- NOTE | 2018-07-21 01:27 | NUR ---
patient continues to sleep. no change in condition.
--- NOTE | 2018-07-21 02:48 | NUR ---
patient continues to sleep. no change in condition.
--- NOTE | 2018-07-21 05:00 | NUR ---
no change. patient sleeping.
--- NOTE | 2018-07-21 06:30 | NUR ---
Sleeping soundly - snoring - at change of shift observation. Undisturbed at this time.
--- NOTE | 2018-07-21 08:00 | NUR ---
Awakened for breakfast. Sat up and ate the majority of his meal. Asked how he was feeling. Pt. stated "I'm suicidal." Informed hospital documentation states he has a history of diabetes. Patient states "I haven't taken anything for that for years." "I don't have that no more."
--- NOTE | 2018-07-21 11:20 | NUR ---
Slept through the morning. Alex MICHELLE at bedside to perform psychatric evaulation. Afterwards stated "I will order medications for this patient." Also ordered a hemoglobin A1C to determine blood sugar status.
--- NOTE | 2018-07-21 12:39 | NUR ---
pt is in bed supine, wiggling his legs, no s/s of agitation observed
--- NOTE | 2018-07-21 13:10 | NUR ---
Awakened for lunch. Ate 100% of his meal. Returned to sleep immediately afterwards. Patient has stayed in bed except to get up twice to use bathroom. Occasionally makes loud grunting sounds.
--- NOTE | 2018-07-21 18:16 | NUR ---
Patient resting in bed at this time.
[2018-07-21] MEDS ORDERED: olanzapine 10mg tablet PO SCH (21:00)
[2018-07-21] MEDS: carBAMazepine Ext. Release 200 MG TAB.ER.12H PO SCH (21:04)
[2018-07-21] MEDS ORDERED: carBAMazepine Ext. Release 200 MG TAB.ER.12H PO ONE (21:10)
--- NOTE | 2018-07-21 21:56 | NUR ---
PATIENT RESTING AT THIS TIME.
--- NOTE | 2018-07-21 22:00 | NUR ---
PATIENT CONTINUES TO BE SLEEPING.
--- NOTE | 2018-07-21 22:51 | NUR ---
PATIENT CONTINUES TO BE SLEEPING.
--- NOTE | 2018-07-21 23:16 | NUR ---
PATIENT RESTING WELL. PATIENT SNORING OFF AND ON.
--- NOTE | 2018-07-22 00:02 | NUR ---
Patient continues to rest in bed. Will continues to monitor.
--- NOTE | 2018-07-22 01:00 | NUR ---
Patient snoring loudly off and on. Resting well at this time.
--- NOTE | 2018-07-22 02:13 | NUR ---
Patient resp wnl unlabored and resting well.
--- NOTE | 2018-07-22 03:06 | NUR ---
Patient continues to be sleeping at this time.
--- NOTE | 2018-07-22 04:06 | NUR ---
Patient continues to be resting with loud snoring noted. Resp WNL with unlabored breathing.
--- NOTE | 2018-07-22 05:27 | NUR ---
Patient continues to be sleeping at this time.
--- NOTE | 2018-07-22 06:30 | NUR ---
Pt lying in bed, appears to be sleeping.
--- NOTE | 2018-07-22 07:47 | NUR ---
Pt awake, eating breakfast.
[2018-07-22] MEDS: carBAMazepine Ext. Release 200 MG TAB.ER.12H PO SCH (07:50)
[2018-07-22] MEDS ORDERED: levetiracetam 250mg tablet PO ONE (08:00)
[2018-07-22 08:14] VITALS: BP 159/87
--- NOTE | 2018-07-22 09:45 | NUR ---
Pt appears to be sleeping.
--- NOTE | 2018-07-22 10:51 | NUR ---
Pt lying in be, appears to be sleeping.
--- NOTE | 2018-07-22 12:45 | NUR ---
Pt is awake, eating lunch.
--- NOTE | 2018-07-22 14:17 | NUR ---
Pt has been accepted by [facility].
--- NOTE | 2018-07-22 14:35 | NUR ---
Pt transferred upstairs to [facility], wheeled in w/c upstairs accompanied by Balwinder VELIZ and security.
[2018-07-22] MEDS ORDERED: OLAN5TAB5 PO (15:54)
[2018-07-22] MEDS ORDERED: OLAN10TA3 PO (15:55)
== END 2018-07-22 14:36 ==
LOC: ER 15:26
DX: F20.9 Schizophrenia, unspecified (principal); R45.851 Suicidal ideations; I10 Essential (primary) hypertension; E11.9 Type 2 diabetes mellitus without complications; F15.90 Other stimulant use, unspecified, uncomplicated; Z59.0 Homelessness; Z90.49 Acquired absence of other specified parts of digestive tract; Z98.890 Other specified postprocedural states; Z88.8 Allergy status to other drugs, medicaments and biological substances; Z79.899 Other long term (current) drug therapy
CPT/HCPCS: 36415; 80053; 80305; 80320; 83036; 85025; 99285; J3490

== ENCOUNTER 2018-07-22 13:49 | Inpatient (IN) | payer MEDICARE, MEDICAID ==
[~2018-07-22] VITALS: Ht 170.2 cm; Wt 66.1 kg
[2018-07-22] MEDS ORDERED: loperamide 2mg capsule PO PRN (14:00)
[2018-07-22] MEDS ORDERED: tuberculin, purif. prot. deriv. 5 units/0.1ml ID ONE (14:00)
[2018-07-22] MEDS ORDERED: magnesium hydroxide 30ml (MOM) UD suspension PO PRN (14:00)
[2018-07-22] MEDS ORDERED: hydrOXYzine 25 MG tablet PO PRN (14:00)
[2018-07-22] MEDS ORDERED: mag hydrox/Alum hydrox/simeth 30ml oral suspension PO PRN (14:00)
[2018-07-22] MEDS ORDERED: acetaminophen 325mg tablet PO PRN ×4 (14:00→14:09)
[2018-07-22] MEDS ORDERED: OLAN5TAB5 PO (15:54)
[2018-07-22] MEDS ORDERED: OLAN10TA3 PO (15:55)
[2018-07-22 16:18] VITALS: BP 175/97
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
[2018-07-22 20:00] VITALS: BP 134/58
[2018-07-22] MEDS: levetiracetam 250mg tablet PO SCH (20:35)
[2018-07-22] MEDS: carBAMazepine Ext. Release 200 MG TAB.ER.12H PO SCH (20:36)
[2018-07-22] MEDS ORDERED: olanzapine 10mg tablet PO SCH (21:00)
--- NOTE | 2018-07-22 22:41 | NUR ---
Pt states it is normal for him not to have a BM for 4-5 days. Addendum: 07/22/18 at 2244 by Karen Mcclendon RN Amended: Links added.
--- NOTE | 2018-07-23 03:32 | NUR ---
Nursing Progress Note: Legal hold: 5150 Exp. 07/25 @ 1445 Client on involuntary status for DTS. Report received from EMILEE Hawkins with use of SBAR. Why are they here: Pt was placed on a 5150 for DTS after he reported that he is "just tired of living. I just want to get it over with." No recent hx of trauma or events that would cause him to be suicidal. 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 Assessment What has happened this shift: Pt was sleeping at shift change. 1:1 assessment performed at bedside. Pt was sleepy, but was able to get assessment completed. Pt was A&O x4. Reports anxiety 09/21 and depression 09/21. Pt reports passive SI at the moment, but with no plan in place. Pt reports he is still having intermittent AH. Pt stated "I just want to go back to sleep," but was cooperative. When asked when last drink was pt stated a couple days ago and last he used meth was about 1 week ago. Pt states his last BM was about 5 days ago, but this a a normal bowel pattern for him. S/I, H/I: Passive SI, with no plan. 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 Were meds taken: Pt medication compliant Any med S/E: None reported or observed Mental Status Exam Appearance: Disheveled male who looks older than his stated age, wearing green scrubs Eye contact: Fair Behavior: Depressed, fatigued, cooperative Speech: Clear, normal rate and rhythm Mood: Depressed Affect: Flat Thought process: Thought blocking Thought Content: "I just want to go back to sleep" Cognition: A&O x3 Insight: Poor Judgment: Poor Interventions PRN's used: None Therapeutic interventions: 1:1 therapeutic assessment, maintained therapeutic milieu provided active listening with positive feedback, provided medication administration/education as ordered, monitored for change in behavior Restraints/seclusion/emergency medication: N/A Justification of Continued Inpatient Treatment: Pt is depressed and a DTS requiring medication management and a therapeutic milieu to interrupt current crisis.
[2018-07-23 08:29] LABS: CARBAMAZEPINE (TEGRETOL) 11.8 UG/ML (4.0-12.0)
[2018-07-23] MEDS: levetiracetam 250mg tablet PO SCH ×2 (08:52→21:18)
[2018-07-23] MEDS: carBAMazepine Ext. Release 200 MG TAB.ER.12H PO SCH ×2 (08:53→21:17)
[2018-07-23 09:15] VITALS: BP 160/92
[2018-07-23 15:19] LABS: CHOL/HDL RATIO 5.4 (0.00-4.99); CHOLESTEROL 195 MG/DL (0-200); HDL CHOLESTEROL 36 MG/DL (35-60); LDL CHOLESTEROL 110 MG/DL (50-100); TRIGLYCERIDES 302 MG/DL (20-135)
[2018-07-23] MEDS: LORazepam 1 MG tablet PO PRN (17:40)
--- NOTE | 2018-07-23 17:49 | NUR ---
Nursing Progress Note: Legal hold: 5150 Exp. 07/25 @ 1445 Client on involuntary status for DTS. Report received from EMILEE Hawkins with use of SBAR. Why are they here: Pt was placed on a 5150 for DTS after he reported that he is "just tired of living. I just want to get it over with." No recent hx of trauma or events that would cause him to be suicidal. 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 Assessment What has happened this shift: Pt. asleep at change of shift. Pt. came to day room for breakfast but then went back to sleep. 1:1 done at bedside pt. was frustrated with assessment, stating, "too many questions". Pt. states that he is suicidal with plan to shoot himself with a gun. Pt. did not want to discuss his current stressors. Pt. states that he had a seizure two days ago. Pt. took medications and went back to sleep after interview. Pt. had bowel movement today. Pt.'s systolic BP was 170 yesterday and 160 today, RN informed pt.'s provider and we are to cont. to monitor, starting anti-hypertensive if persists. Pt.'s HGA1C 6.7, hospitalist aware. Pt. given Tylenol for headache and ativan for anxiety. S/I, H/I: SI with plan to shoot himself with a gun. A/VH: Pt. reports AH, becomes frustrated when I ask what they say, states, "A constant chattering". Sleep: Pt. throughout shift. ADL's: Independent Group attendance: Did not attend group. Were meds taken: Y Any med S/E: None reported or observed Mental Status Exam Appearance: Disheveled male who looks older than his stated age, wearing green scrubs Eye contact: Fair Behavior: Depressed, fatigued, frustrated with assessments Speech: Clear, normal rate and rhythm Mood: Depressed Affect: Flat Thought process: Thought blocking Thought Content: "I'm tired". Cognition: A&O x3 not aware of time. Insight: Poor Judgment: Poor Interventions PRN's used: Tylenol and Ativan Therapeutic interventions: 1:1 therapeutic assessment, maintained therapeutic milieu provided active listening with positive feedback, provided medication administration/education as ordered, monitored for change in behavior Restraints/seclusion/emergency medication: N/A Justification of Continued Inpatient Treatment: Pt is depressed and a DTS requiring medication management and a therapeutic milieu to interrupt current crisis.
[2018-07-23 19:00] VITALS: BP 145/79
[2018-07-23] MEDS: OLANZAPINE 5 MG TABLET PO SCH (21:18)
--- NOTE | 2018-07-24 02:08 | NUR ---
Nursing Progress Note: Legal hold: 5150 Exp. 07/25 @ 1445 Client on involuntary status for DTS. Report received from EMILEE Hawkins with use of SBAR. Why are they here: Pt was placed on a 5150 for DTS after he reported that he is "just tired of living. I just want to get it over with." No recent hx of trauma or events that would cause him to be suicidal. 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 Assessment What has happened this shift: Pt was sleeping in room at shift change, no apparent distress observed. Pt did not get up for HS snack. Pt was reluctant when asked to perform 1:1 assessment. Pt was medication compliant, but answered questions were mumbled, abrupt or short in response. Pt states "yes, I am still hearing voices," "yes, I want to kill myself," but didn't suggest a plan. Pt reported his anxiety and depression both a /10. Observed pt sleeping soundly throughout shift, AEB pt's snoring. Pt's SBP was 145 S/I, H/I: Passive SI, with no plan. 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 Were meds taken: Pt medication compliant Any med S/E: None reported or observed Mental Status Exam Appearance: Disheveled male who looks older than his stated age, wearing green scrubs Eye contact: Fair Behavior: Depressed, fatigued, reluctant Speech: Mumbled, abrupt Mood: Depressed Affect: Flat Thought process: Thought blocking Thought Content: "I just want to go back to sleep" Cognition: A&O x3 Insight: Poor Judgment: Poor Interventions PRN's used: None Therapeutic interventions: 1:1 therapeutic assessment, maintained therapeutic milieu provided active listening with positive feedback, provided medication administration/education as ordered, monitored for change in behavior Restraints/seclusion/emergency medication: N/A Justification of Continued Inpatient Treatment: Pt is depressed and a DTS requiring medication management and a therapeutic milieu to interrupt current crisis.
[2018-07-24] MEDS: carBAMazepine Ext. Release 200 MG TAB.ER.12H PO SCH ×2 (07:41→21:18)
[2018-07-24] MEDS: levetiracetam 250mg tablet PO SCH ×2 (07:41→21:18)
[2018-07-24 08:00] VITALS: BP 135/83
--- NOTE | 2018-07-24 15:11 | NUR ---
Nursing Progress Note: Legal hold: 5150 Exp. 07/25 @ 1445 Client on involuntary status for DTS. Report received from Angelica Foy RN with use of SBAR. Why are they here: Pt was placed on a 5150 for DTS after he reported that he is "just tired of living. I just want to get it over with." No recent hx of trauma or events that would cause him to be suicidal. 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 Assessment What has happened this shift: Received Pt. asleep at change of shift with normal respirations and in no distress. Pt. awoke for medications and came to day room for breakfast, complaining that he was on a diabetic diet. I explained his lab values and why we were trying to control his elevated BS with diet. He did not seem to care and stated "I want to go back to sleep". Pt's BP dropped to a normal 135/83. Does not want to communicate with others much. Continues to endorse not wanting to live. Encouraged to attend groups and spend time with others. S/I, H/I: SI with plan to shoot himself. A/VH: Pt. reports non specific AH. Sleep: Intermittently throughout shift. ADL's: Independent Group attendance: Did not attend group. Were meds taken: Y Any med S/E: None reported or observed Mental Status Exam Appearance: Disheveled male who looks older than his stated age. Eye contact: Fair Behavior: Depressed, fatigued, frustrated with questions Speech: Clear, normal rate and rhythm Mood: Depressed Affect: Flat Thought process: Thought blocking Thought Content: "I'm tired". "It's not good food" Cognition: A&O x3 not aware of time. Insight: Poor Judgment: Poor Interventions PRN's used: none Therapeutic interventions: 1:1 therapeutic assessment, maintained therapeutic milieu provided active listening with positive feedback, provided medication administration/education as ordered, monitored for change in behavior Restraints/seclusion/emergency medication: N/A Justification of Continued Inpatient Treatment: Pt is depressed and a DTS requiring medication management and a therapeutic milieu to interrupt current crisis.
[2018-07-24 19:34] VITALS: BP 137/73
[2018-07-24] MEDS: OLANZAPINE 5 MG TABLET PO SCH (21:18)
--- NOTE | 2018-07-24 23:25 | NUR ---
Nursing Progress Note: Legal hold: 5150 Exp. 07/25 @ 1445 Client on involuntary status for DTS. Report received from Ross GILLIAM with use of SBAR. Why are they here: Pt was placed on a 5150 for DTS after he reported that he is "just tired of living. I just want to get it over with." No recent hx of trauma or events that would cause him to be suicidal. 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 Assessment What has happened this shift: Pt sits in the group room and watches TV briefly. He mainly isolates in his room and lays in bed. Pt is cooperative with assessment and makes occasional eye contact. He admits to still feeling suicidal, although he will not disclose his plan. He is medication compliant. 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 Were meds taken: Y Any med S/E: None reported or observed Mental Status Exam Appearance: Disheveled Eye contact: occasional Behavior: fatigued Speech: Clear, normal rate and rhythm Mood: Depressed Affect: Flat Thought process: linear Cognition: A&O x3 not aware of time Insight: Poor Judgment: Poor Interventions PRN's used: none Therapeutic interventions: 1:1 therapeutic assessment, maintained therapeutic milieu provided active listening with positive feedback, provided medication administration/education as ordered, monitored for change in behavior Restraints/seclusion/emergency medication: N/A Justification of Continued Inpatient Treatment: Pt is depressed and a DTS requiring medication management and a therapeutic milieu to interrupt current crisis.
[2018-07-25 08:14] VITALS: BP 184/96
[2018-07-25] MEDS: levetiracetam 250mg tablet PO SCH ×2 (08:17→20:21)
[2018-07-25] MEDS: carBAMazepine Ext. Release 200 MG TAB.ER.12H PO SCH ×2 (08:17→20:20)
[2018-07-25] MEDS: LORazepam 1 MG tablet PO PRN (15:21)
[2018-07-25] MEDS: OLANZAPINE 5 MG TABLET PO SCH ×2 (15:21→21:30)
--- NOTE | 2018-07-25 17:07 | NUR ---
Nursing Progress Note: Legal hold: 5150 Exp. 07/25 @ 1445 Client on involuntary status for DTS. Report received from EMILEE Rangel with use of SBAR. Why are they here: Pt was placed on a 5150 for DTS after he reported that he is "just tired of living. I just want to get it over with." No recent hx of trauma or events that would cause him to be suicidal. 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 Assessment What has happened this shift: Pt was sleeping in room at shift change. Awakened patient and introduced self. Patient in good spirits. Walked with staff up the caceres to get AM medications. Upon questioning, patient states "Yeah, I still feel suicidal. That's why I sleep. Sleep is good for me. I need a lot of sleep. It's quiet in my head when I sleep." Prefers to isolate, except to get up for meals. Patient signed in voluntarily today. S/I, H/I: Passive SI, with no plan. 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 Were meds taken: Pt medication compliant Any med S/E: None reported or observed Mental Status Exam Appearance: Disheveled male who looks older than his stated age, wearing green scrubs Eye contact: Fair Behavior: Depressed, fatigued, reluctant Speech: Mumbled, abrupt Mood: Depressed Affect: Flat Thought process: Thought blocking Thought Content: "I just want to go back to sleep" Cognition: A&O x3 Insight: Poor Judgment: Poor Interventions PRN's used: None Therapeutic interventions: 1:1 therapeutic assessment, maintained therapeutic milieu provided active listening with positive feedback, provided medication administration/education as ordered, monitored for change in behavior Restraints/seclusion/emergency medication: N/A Justification of Continued Inpatient Treatment: Pt is depressed and a DTS requiring medication management and a therapeutic milieu to interrupt current crisis.
--- NOTE | 2018-07-25 19:02 | NUR ---
Nursing Progress Note: Legal hold: Voluntary Client on voluntary (originally came in on 5150 for DTS) Report received from EMILEE Hawkins with use of SBAR. Why are they here: Pt was placed on a 5150 for DTS after he reported that he is "just tired of living. I just want to get it over with." No recent hx of trauma or events that would cause him to be suicidal. 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 Assessment What has happened this shift: Pt was laying in bed at change of shift. 1:1 assessment completed at bedside. Pt states he is suicidal and states his plan is to shoot himself, pt smiles when he says this. Pt has no gun but states "I'll just get one." Pt is hopeless, states "they say my pancreas is bad, maybe it will kill me." Pt states he had a shower today, saw the doctor and went to groups, "we talked about art." pt is hopeless, depressed, states "nothing you guys can do to help me." Pt states it's a "long story" why he's here, "If you wanna know about me, just read the doctors notes, I get tired of telling people." Pt states he is sleeping well, appetite is good. 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 Were meds taken: Pt medication compliant Any med S/E: None reported or observed Mental Status Exam Appearance: Disheveled male who looks older than his stated age, wearing green scrubs Eye contact: Fair Behavior: sleeping a lot, isolating in his room Speech: normal rate and rhythm Mood: Depressed, hopeless Affect: incongruent, laughs when talking about hoping to , blunted Thought process: linear Thought Content: talking about not wanting to live Cognition: A&O x3 Insight: Poor Judgment: Poor Interventions PRN's used: None Therapeutic interventions: 1:1 assessment, active listening, encouraged socializing w/others, provided medication administration/education, q15 min for safety. Restraints/seclusion/emergency medication: N/A Justification of Continued Inpatient Treatment: Pt is depressed and a DTS requiring medication management and a therapeutic milieu to interrupt current crisis.
[2018-07-25 20:31] VITALS: BP 126/75
[2018-07-26 07:00] VITALS: BP 143/87
[2018-07-26] MEDS: carBAMazepine Ext. Release 200 MG TAB.ER.12H PO SCH ×2 (07:55→20:09)
[2018-07-26] MEDS: levetiracetam 250mg tablet PO SCH ×2 (07:56→20:08)
[2018-07-26] MEDS: OLANZAPINE 5 MG TABLET PO SCH ×2 (07:58→20:08)
--- NOTE | 2018-07-26 14:05 | NUR ---
Nursing Progress Note: Legal hold: Voluntary Client on voluntary (originally came in on 5150 for DTS) Report received from EMILEE Hernandez with use of SBAR. Why are they here: Pt was placed on a 5150 for DTS after he reported that he is "just tired of living. I just want to get it over with." No recent hx of trauma or events that would cause him to be suicidal. 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 Assessment What has happened this shift: Received pt sleeping, loudly snoring in bed. Awakened for breakfast, then back to bed. He states that [facility], and started drinking there. He then went and checked himself into [employer] and was drinking heavily. Patient states that he is suicidal, when asked about plan, he talked about how an M.D. told him that he has a bad pancreas and if he drinks he will , "might as well go for it". States that he can return to [facility], but doesn't want to go back there because there are people there that are out on parole. This RN told him that he probably doesn't interact much with the other residents, as he sleeps so much, "yeah, I just need something different". S/I, H/I: Passive SI, thinking about drinking himself to . A/VH: Pt reports AH, "jiberish". Sleep: 10 hrs. NOC, slept in between meals and groups. ADL's: Independent Group attendance: Yes. Were meds taken: Pt medication compliant Any med S/E: None reported or observed Mental Status Exam Appearance: Disheveled male who looks older than his stated age, wearing green scrubs Eye contact: Fair Behavior: sleeping a lot, isolating in his room Speech: normal rate and rhythm Mood: Depressed, hopeless Affect: incongruent, laughs when talking about hoping to , blunted Thought process: linear Thought Content: Concerned about being discharged. Cognition: A&O x3 Insight: Poor Judgment: Poor Interventions PRN's used: None Therapeutic interventions: 1:1 assessment, active listening, encouraged socializing w/others, provided medication administration/education, q15 min for safety. Restraints/seclusion/emergency medication: N/A Justification of Continued Inpatient Treatment: Pt is depressed and a DTS requiring medication management and a therapeutic milieu to interrupt current crisis.
[2018-07-26 20:00] VITALS: BP 130/85
--- NOTE | 2018-07-26 23:35 | NUR ---
Nursing Progress Note: Legal hold: Voluntary Client on voluntary (originally came in on 5150 for DTS) Report received from EMILEE Hawkins with use of SBAR. Why are they here: Pt was placed on a 5150 for DTS after he reported that he is "just tired of living. I just want to get it over with." No recent hx of trauma or events that would cause him to be suicidal. 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 Assessment What has happened this shift: Pt was in his room at change of shift. 1:1 assessment completed at bedside. pt continues to endorse s/i, stating "a little bit, I'll probably kill myself, I'd love to shoot myself but..." Pt did not finish his sentence. Pt is smiling and states the last time I went to the [facility] he fell and had a seizure despite taking his meds. He is hopefull to go back to the [facility] stating "[facility] have a lot of long-term people and I dont want to be around them." Pt reports appetie is good, sleep is good. S/I, H/I: pt states he will "probably" kill himself and would like to shoot himself. A/VH: AH but can't tell what is being said Sleep: pt sleeps several hours isolates in his room between meals and groups and naps ADL's: Independent Group attendance: Yes. Were meds taken: Pt medication compliant Any med S/E: None reported or observed Mental Status Exam Appearance: Disheveled male who looks older than his stated age, wearing green scrubs and ball cap Eye contact: good Behavior: sleeping a lot, isolating in his room Speech: normal rate and rhythm Mood: Depressed, Affect: incongruent, laughs when talking about hoping to , blunted Thought process: linear Thought Content: hopeful to be dc to [facility] Cognition: A&O x3 Insight: Poor Judgment: Poor Interventions PRN's used: None Therapeutic interventions: 1:1 assessment, active listening, encouraged socializing w/others, provided medication administration/education, q15 min for safety. Restraints/seclusion/emergency medication: N/A Justification of Continued Inpatient Treatment: Pt is depressed and a DTS requiring medication management and a therapeutic milieu to interrupt current crisis.
[2018-07-27 08:00] VITALS: BP 121/75
[2018-07-27] MEDS: OLANZAPINE 5 MG TABLET PO SCH ×2 (08:16→20:14)
[2018-07-27] MEDS: levetiracetam 250mg tablet PO SCH ×2 (08:16→20:15)
[2018-07-27] MEDS: carBAMazepine Ext. Release 200 MG TAB.ER.12H PO SCH ×2 (08:17→20:15)
--- NOTE | 2018-07-27 12:51 | NUR ---
100% PO Intake of regular diet. Meeting nutrition needs. Patient triglycerides are elevated at 302 and LDL is 110 mg/dl. Could possibly benefit from heart healthy diet, d/w RN. Recommend: 1. consider heart healthy diet in view of LDL 101 and TG of 302 2. Weekly weights Addendum: 07/27/18 at [address] Amended: Links added.
--- NOTE | 2018-07-27 17:07 | NUR ---
Nursing Progress Note: Legal hold: Voluntary Client on voluntary (originally came in on 5150 for DTS) Report received from MANE Hernandez with use of SBAR. Why are they here: Pt was placed on a 5150 for DTS after he reported that he is "just tired of living. I just want to get it over with." No recent hx of trauma or events that would cause him to be suicidal. 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 Assessment What has happened this shift: The patient was asleep at change of shift. He was up for breakfast with his peers. Eating well. Depressed mood bland affect.Reports feeling "a little suicidal but I'm coping with everything, I would like to go to the [facility], I think I am going there on Wednesday, I think that is the best place to go." He could not articulate a plan to kill himself. Attended groups and meals and took naps. Medication compliant. S/I, H/I: Passive, "just tired of this" A/VH: denies Sleep: pt sleeps several hours isolates in his room between meals and groups and naps ADL's: Independent Group attendance: Yes. Were meds taken: Pt medication compliant Any med S/E: None reported or observed Mental Status Exam Appearance: Disheveled male wearing green scrubs and ball cap Eye contact: good Behavior: sleeping a lot, isolating in his room Speech: normal rate and rhythm Mood: Depressed, Affect: blunted Thought process: linear Thought Content: hopeful to be dc to [facility] Cognition: A&O x3 Insight: Poor Judgment: Poor Interventions PRN's used: None Therapeutic interventions: 1:1 assessment, active listening, encouraged socializing w/others, provided medication administration/education, q15 min for safety. Restraints/seclusion/emergency medication: N/A Justification of Continued Inpatient Treatment: Pt is depressed and a DTS requiring medication management and a therapeutic milieu to interrupt current crisis.
[2018-07-27 20:00] VITALS: BP 151/87
--- NOTE | 2018-07-27 23:52 | NUR ---
Nursing Progress note: The patient has been up on the unit and in the general patient areas. He has been medication and treatment compliant on the unit. He appeared clean and appropriately dressed for the unit. He was friendly on approach for the evening assessment. One to one with the patient to assess for the severity of disordered thoughts, self harm risk and the severity of depressive symptoms.Provided medication education. He denies having medication side effects. He remains on q 15 minute safety checks and has not had any self injurious behaviors on the unit reported or observed. The patient stated that he has attended during the groups during the day but stated he had difficulty concentrating and added, "sometimes it's hard to just sit there. 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 He was asked about hearing voices and he reports that they are becoming less frequent with the Zyprexa. He stated that earlier in the day he heard someone talking outside of his door but when he went to check there was no one there. When asked about his plan for discharge he stated that he would like to go to mental health where he has a worker. When asked about alcohol cravings he stated, "yeah anybody would" He denies withdrawal symptoms. When asked he stated that his diagnosis was Schizophrenia and then stated, "I don't even know what schizophrenia is" Briefly educated to what schizophrenia was.
[2018-07-28] MEDS: carBAMazepine Ext. Release 200 MG TAB.ER.12H PO SCH (07:37)
[2018-07-28] MEDS: levetiracetam 250mg tablet PO SCH (07:38)
[2018-07-28] MEDS: OLANZAPINE 5 MG TABLET PO SCH (07:38)
[2018-07-28 08:00] VITALS: BP 159/91
[2018-07-28] MEDS ORDERED: OLAN10TA3 PO (12:18)
[2018-07-28] MEDS ORDERED: CARB300C6 PO (12:18)
[2018-07-28] MEDS ORDERED: OLAN5TAB26 PO (12:18)
[2018-07-28] MEDS ORDERED: LEVE10002 PO (12:18)
--- NOTE | 2018-07-28 14:50 | NUR ---
DISCHARGE NOTE The patient was discharged today at 1450. He left with all belongings and instructions including his home medications which had been stored in the pharmacy since his ER admission. He was escorted to the lobby by Karen GILLIAM and stated he would be going to the bus stop and then getting himself over to the [place]. He denies any suicidal thoughts or hallucinations upon discharge.
== END 2018-07-28 14:50 | disposition short-term general hospital (02) | DRG 885 ==
LOC: ADULT MH 13:49
PROVIDERS: ADMIT Psychiatry & Neurology Psychiatry; ATTEND Psychiatry & Neurology Psychiatry
DX: F20.3 Undifferentiated schizophrenia (principal); R45.851 Suicidal ideations; F10.129 Alcohol abuse with intoxication, unspecified; Y90.9 Presence of alcohol in blood, level not specified; G40.909 Epilepsy, unspecified, not intractable, without status epilepticus; F15.10 Other stimulant abuse, uncomplicated; F32.9 Major depressive disorder, single episode, unspecified; I10 Essential (primary) hypertension; F41.9 Anxiety disorder, unspecified; E11.9 Type 2 diabetes mellitus without complications; Z86.14 Personal history of Methicillin resistant Staphylococcus aureus infection; Z90.49 Acquired absence of other specified parts of digestive tract; Z59.0 Homelessness; Z71.41 Alcohol abuse counseling and surveillance of alcoholic; Z83.3 Family history of diabetes mellitus
CPT/HCPCS: 36415; 80053; 80061; 80156; 80305; 80320; 83036; 85025; 87070; 99285; J3490

== ENCOUNTER 2018-08-17 17:56 | Emergency (ER) | payer MEDICARE, MEDICAID ==
[~2018-08-17] VITALS: Ht 170.2 cm; Wt 86.0 kg
[~2018-08-17 17:56] MED LIST changes: -ARIP30TA11 PO; -CARB200T PO; -CLIN-96 PO; -FLUO40CA PO; -KEP500T PO; -METF-950 PO; +OLAN10TA3 PO; +OLAN5TAB26 PO; -PRAZ2CAP2 PO; -TRAZ-219 PO
[2018-08-17 18:10] VITALS: BP 176/90
--- NOTE | 2018-08-17 19:39 | NUR ---
no appropriate RAP assessment for chief complaint. Pt states he did meth sveral hours ago and now feels like the room is spinning. he is calm, alert, and laying in the gurney
[2018-08-17 21:03] LABS: BASOPHILS % (AUTO) 0.5 % (0-1); EOSINOPHILS # (AUTO) 0.1 X10'3 (0-0.9); EOSINOPHILS % (AUTO) 0.9 % (0-6); HEMATOCRIT 37.3 % (42.0-52.0); HEMOGLOBIN 13.6 g/dl (14.0-17.9); LYMPHOCYTES % (AUTO) 14.5 % (21-51); MEAN CORPUSCULAR HEMOGLOBIN 31.1 PG (27.0-31.0); MEAN CORPUSCULAR HGB CONC 36.4 g/dL (33.0-36.5); MEAN CORPUSCULAR VOLUME 85.5 FL (78-98); MEAN PLATELET VOLUME 8.5 FL (7.4-10.4); MONOCYTES # (AUTO) 0.8 X10'3 (0-0.9); NEUTROPHILS % (AUTO) 72.1 % (42-75); PLATELET COUNT 183 X10'3 (140-440); RED BLOOD COUNT 4.37 X10'6 (4.70-6.10)
[2018-08-17 21:19] LABS: ALANINE AMINOTRANSFERASE 27 U/L (12-78); ALBUMIN 3.7 G/DL (3.4-5.0); ALBUMIN/GLOBULIN RATIO 1.1 (1.1-1.5); ALKALINE PHOSPHATASE 90 IU/L (46-116); ANION GAP 6 (8-16); ASPARTATE AMINO TRANSFERASE 13 U/L (10-37); BILIRUBIN,TOTAL 0.4 MG/DL (0.1-1.0); BLOOD UREA NITROGEN 4 MG/DL (7-18); BUN/CREATININE RATIO 5.2 (5.4-32.0); CALCIUM 8.3 MG/DL (8.5-10.1); CHLORIDE 91 MMOL/L (99-107); CREATININE 0.77 MG/DL (0.60-1.10); ETHANOL < 0.010 GM/DL (0.0-0.010); GLUCOSE 197 MG/DL (70-104); POTASSIUM 3.5 MMOL/L (3.5-5.1); SODIUM 124 MMOL/L (135-145); TOTAL CARBON DIOXIDE 27.4 MMOL/L (24-32); eGFR > 90 ML/MIN
[2018-08-17] MEDS ORDERED: normal saline 1000ML IV soln IVB ONE (21:40)
[2018-08-17 22:05] LABS: PLATELET ESTIMATE NORMAL; SPHEROCYTES 2+
== END 2018-08-17 22:42 | disposition home or self-care (01) ==
LOC: ER 17:56
DX: E86.0 Dehydration (principal); E87.1 Hypo-osmolality and hyponatremia; F15.10 Other stimulant abuse, uncomplicated; I10 Essential (primary) hypertension; E11.9 Type 2 diabetes mellitus without complications; Z86.14 Personal history of Methicillin resistant Staphylococcus aureus infection; Z90.49 Acquired absence of other specified parts of digestive tract; Z88.8 Allergy status to other drugs, medicaments and biological substances; Z79.899 Other long term (current) drug therapy; Z59.0 Homelessness
CPT/HCPCS: 36415; 80053; 80320; 85025; 99283; J7030

== ENCOUNTER 2018-11-02 15:27 | Emergency (ER) | payer MEDICARE, MEDICAID ==
[~2018-11-02] VITALS: Ht 170.2 cm; Wt 85.5 kg
[~2018-11-02 15:27] MED LIST changes: -CARB300C6 PO; +CARB300C9 PO
--- NOTE | 2018-11-02 15:38 | NUR ---
Patient straight back to overflow with JOSE ALFREDO Cheema.
[2018-11-02 16:23] LABS: BASOPHILS % (AUTO) 0.4 % (0-1); EOSINOPHILS % (AUTO) 0.5 % (0-6); HEMOGLOBIN 14.7 g/dl (14.0-17.9); LYMPHOCYTES # (AUTO) 1.4 X10'3 (1.1-4.8); LYMPHOCYTES % (AUTO) 19.7 % (21-51); MEAN CORPUSCULAR HEMOGLOBIN 31.9 PG (27.0-31.0); MEAN CORPUSCULAR HGB CONC 35.9 g/dL (33.0-36.5); MEAN CORPUSCULAR VOLUME 88.9 FL (78-98); MEAN PLATELET VOLUME 8.1 FL (7.4-10.4); MONOCYTES # (AUTO) 0.8 X10'3 (0-0.9); MONOCYTES % (AUTO) 11.3 % (2-12); NEUTROPHILS # (AUTO) 4.8 X10'3 (1.8-7.7); NEUTROPHILS % (AUTO) 68.1 % (42-75); PLATELET COUNT 226 X10'3 (140-440); RED BLOOD COUNT 4.62 X10'6 (4.70-6.10); WHITE BLOOD COUNT 7.1 X10'3 (4.5-11.0)
[2018-11-02 16:39] LABS: ALANINE AMINOTRANSFERASE 24 U/L (12-78); ALBUMIN 4.6 G/DL (3.4-5.0); ALBUMIN/GLOBULIN RATIO 1.2 (1.1-1.5); ALKALINE PHOSPHATASE 96 IU/L (46-116); ANION GAP 14 (8-16); ASPARTATE AMINO TRANSFERASE 10 U/L (10-37); BILIRUBIN,TOTAL 0.9 MG/DL (0.1-1.0); BLOOD UREA NITROGEN 12 MG/DL (7-18); BUN/CREATININE RATIO 10.9 (5.4-32.0); CALCIUM 8.9 MG/DL (8.5-10.1); CHLORIDE 97 MMOL/L (99-107); ETHANOL < 0.010 GM/DL (0.0-0.010); GLUCOSE 209 MG/DL (70-104); POTASSIUM 3.6 MMOL/L (3.5-5.1); SODIUM 132 MMOL/L (135-145); TOTAL CARBON DIOXIDE 21.2 MMOL/L (24-32); TOTAL PROTEIN 8.3 G/DL (6.4-8.2); eGFR 71 ML/MIN
[2018-11-02] MEDS ORDERED: METF-950 PO (17:25)
[2018-11-02] MEDS ORDERED: OLAN10TA19 (17:25)
[2018-11-02] MEDS ORDERED: QUET100T33 (17:25)
[2018-11-02 17:28] LABS: URINE AMPHETAMINE SCREEN POSITIVE (Neg); URINE BARBITUATE SCREEN NEGATIVE (Neg); URINE BENZODIAZEPINES SCREEN NEGATIVE (Neg); URINE CANNABINOID SCREEN NEGATIVE (Neg); URINE COCAINE SCREEN NEGATIVE (Neg); URINE METHADONE SCREEN NEGATIVE (Neg); URINE OPIATE SCREEN NEGATIVE (Neg); URINE PHENCYCLIDINE SCREEN NEGATIVE (Neg)
[2018-11-02] MEDS ORDERED: OLAN5TAB5 PO (17:28)
[2018-11-02] MEDS ORDERED: QUET-1 PO (17:29)
[2018-11-02] MEDS ORDERED: OLAN10TA19 PO (17:30)
[2018-11-02] MEDS ORDERED: CARB300C9 PO (17:35)
[2018-11-02] MEDS ORDERED: LEVE10002 PO (17:36)
--- NOTE | 2018-11-02 18:07 | NUR ---
Packet faxed to [facility]
[2018-11-02] MEDS ORDERED: CARB200T8 PO (18:28)
--- NOTE | 2018-11-02 18:45 | NUR ---
Patient is awake, well oriented, resting in bed. Complains of depression and S/I. Affect is blunted. Patient makes good eye contact. Q15 minute rounding is being done for patient safety.
[2018-11-02] MEDS: metFORMIN 500mg tablet PO SCH (20:36)
[2018-11-02] MEDS: levetiracetam 250mg tablet PO SCH (20:36)
[2018-11-02] MEDS: carBAMazepine 100mg chewable tablet PO SCH (20:36)
[2018-11-02] MEDS: olanzapine 10mg tablet PO SCH (20:36)
--- NOTE | 2018-11-02 21:30 | NUR ---
Patient is resting quietly. Up to bathroom once. No problems with ambulation. Patient is medication compliant.
--- NOTE | 2018-11-03 01:30 | NUR ---
Patient is sleeping. Low fowlers in bed. In direct view from nursing station.
--- NOTE | 2018-11-03 02:51 | NUR ---
BREAKING PRIMARY RN, PT IS LAYING ON HIS RIGHT SIDE, EYES CLOSED, NO S/S OF DISTRESS OBSERVED, WILL CONTINUE TO MONITOR
--- NOTE | 2018-11-03 05:04 | NUR ---
Patient sleeping on his right side.
[2018-11-03] MEDS: metFORMIN 500mg tablet PO SCH ×2 (08:12→20:15)
[2018-11-03] MEDS: levetiracetam 250mg tablet PO SCH ×2 (08:12→20:15)
[2018-11-03] MEDS: quetiapine 100mg tablet PO SCH (08:12)
[2018-11-03] MEDS: carBAMazepine 100mg chewable tablet PO SCH ×2 (08:13→20:15)
--- NOTE | 2018-11-03 09:00 | NUR ---
Pt took am meds, ate breakfast and is now resting in bed quietly.
--- NOTE | 2018-11-03 14:19 | NUR ---
PT UP TO BR. NO NEEDS AT THIS TIME
--- NOTE | 2018-11-03 15:00 | NUR ---
Report received from MANE Oscar. All questions answered. I agree with previously documented assessment. Patient resting comfortably in bed. No needs at this time. I will assume care of patient now.
--- NOTE | 2018-11-03 16:00 | NUR ---
Patient continues to rest comfortably in bed. No needs at this time.
--- NOTE | 2018-11-03 19:02 | NUR ---
Nursing Note: Pt laying in bed with his eyes closed, RR even and unlabored, no S&S of distress, will continue to monitor.
[2018-11-03] MEDS: olanzapine 10mg tablet PO SCH (20:15)
--- NOTE | 2018-11-03 20:19 | NUR ---
Nursing Note: Pt compliant with medication administration. He states that he hears voices. When asked what he hears he states, "different things." Pt indicates he is depressed, but denies SI. He states, "Hope things get better." Pt denies anxiety. Will continue to monitor.
--- NOTE | 2018-11-03 21:45 | NUR ---
Nursing Note: Pt laying on his back in bed with his eyes closed. He appears asleep. RR even and unlabored, no S&S of distress, will continue to monitor.
--- NOTE | 2018-11-03 23:44 | NUR ---
Nursing Note: Pt laying on L side, eyes closed, appears asleep. Respirations even and unlabored, no S&S of distress, will continue to monitor.
--- NOTE | 2018-11-04 00:55 | NUR ---
Nursing Note: Pt laying on back with eyes closed, RR even and unlabored, no S&S of distress, will continue to monitor.
--- NOTE | 2018-11-04 02:27 | NUR ---
Nursing Note: Pt laying on his L side, eyes closed, RR even and unlabored, no S&S of distress, will continue to monitor.
--- NOTE | 2018-11-04 04:23 | NUR ---
Nursing Note: Pt laying on back, eyes closed, appears asleep, RR even and unlabored, no S&S of distress, will continue to monitor.
[2018-11-04 05:13] VITALS: BP 129/82
--- NOTE | 2018-11-04 05:50 | NUR ---
Nursing Note: Pt laying on his back, snoring, no S&S of distress, will continue to monitor.
[2018-11-04] MEDS: quetiapine 100mg tablet PO SCH (08:35)
[2018-11-04] MEDS: metFORMIN 500mg tablet PO SCH (08:35)
[2018-11-04] MEDS: carBAMazepine 100mg chewable tablet PO SCH (08:35)
[2018-11-04] MEDS: levetiracetam 250mg tablet PO SCH (08:35)
--- NOTE | 2018-11-04 12:11 | NUR ---
Ross GILLIAM [facility] called and states they have accepted pt. Call to ED to DC pt so he can be transferred upstairs.
== END 2018-11-04 13:30 ==
LOC: ER 15:28
DX: F32.9 Major depressive disorder, single episode, unspecified (principal); I10 Essential (primary) hypertension; E11.9 Type 2 diabetes mellitus without complications; F20.9 Schizophrenia, unspecified; F15.90 Other stimulant use, unspecified, uncomplicated; Z86.14 Personal history of Methicillin resistant Staphylococcus aureus infection; Z90.49 Acquired absence of other specified parts of digestive tract; Z98.890 Other specified postprocedural states; Z59.0 Homelessness; Z88.8 Allergy status to other drugs, medicaments and biological substances; Z79.84 Long term (current) use of oral hypoglycemic drugs; Z79.899 Other long term (current) drug therapy
CPT/HCPCS: 36415; 80053; 80305; 80320; 85025; 99285

== ENCOUNTER 2018-11-04 11:47 | Inpatient (IN) | payer MEDICARE, MEDICAID ==
[~2018-11-04] VITALS: Ht 170.2 cm; Wt 88.5 kg
[~2018-11-04 11:47] MED LIST changes: +CARB200T8 PO; -CARB300C9 PO; +METF-950 PO; +OLAN10TA19 PO; -OLAN10TA3 PO; -OLAN5TAB26 PO; +QUET-1 PO
[2018-11-04] MEDS ORDERED: hydrOXYzine 25 MG tablet PO PRN (12:00)
[2018-11-04] MEDS ORDERED: magnesium hydroxide 30ml (MOM) UD suspension PO PRN (12:00)
[2018-11-04] MEDS ORDERED: tuberculin, purif. prot. deriv. 5 units/0.1ml ID ONE (12:00)
[2018-11-04] MEDS ORDERED: loperamide 2mg capsule PO PRN (12:00)
[2018-11-04] MEDS ORDERED: LORazepam 1 MG tablet PO PRN (12:00)
[2018-11-04] MEDS ORDERED: acetaminophen 325mg tablet PO PRN (12:00)
[2018-11-04] MEDS ORDERED: mag hydrox/Alum hydrox/simeth 30ml oral suspension PO PRN (12:00)
--- NOTE | 2018-11-04 14:10 | NUR ---
Admission note: Pt arrives 1330 on [place] [facility] on a 5150 for DTS. Pt reports feeling depressed and suicidal. Client was recently kicked out of his mothers home and is homeless. Client reports hearing voices and feels the waterworks employee from the [facility] is after him and going to kill him. Pt has a plan to "jump out in front of a train." Pt has history of seizures, pancreatitis, diabetes, depression, schizophrenia. Pt cooperative with admission process. Pt taken to shower for 2 RN skin assessment and shower.
--- NOTE | 2018-11-04 16:36 | NUR ---
DM consult: Patient's A1c pending at this time. Previous A1c 6.7 in July of this year. Will f/u tomorrow for A1c results however DM education likely not appropriate at this time given current mentation admit with depression and SI. Addendum: 11/04/18 at [address] Amended: Links added.
[2018-11-04 19:00] VITALS: BP 132/79
[2018-11-04] MEDS: olanzapine 10mg tablet PO SCH (21:03)
[2018-11-04] MEDS: levetiracetam 250mg tablet PO SCH (21:04)
[2018-11-04] MEDS: metFORMIN 500mg tablet PO SCH (21:05)
[2018-11-04] MEDS: carBAMazepine Ext. Release 200 MG TAB.ER.12H PO SCH (21:06)
--- NOTE | 2018-11-04 21:54 | NUR ---
Nursing Progress Note:[] Legal hold:[] Client on voluntary/involuntary status for DTS. Report received from nurse with use of GURDEEP Hawkins. Why are they here:.Admission note: Pt arrives 1330 on [place] [facility] on a 5150 for DTS. Pt reports feeling depressed and suicidal. Client was recently kicked out of his mothers home and is homeless. Client reports hearing voices and feels the clinical resource director from the [facility] is after him and going to kill him. Pt has a plan to "jump out in front of a train." Pt has history of seizures, pancreatitis, diabetes, depression, schizophrenia. Pt cooperative with admission process. Pt taken to shower for 2 RN skin assessment and shower. Assessment What has happened this shift: Patient stayed in bed all shift woke him up to interview. Pt stated that he is depressed and having SI but wont hurt him self here. He was med compliant and returned to sleep. S/I, H/I:yes A/VH: denies Sleep:good ADL's:independent Group attendance: Were meds taken:yes Any med S/E none Mental Status Exam Appearance: groomed Eye contact:good Behavior: cooperative Speech:clear Mood:Glum Affect:flat Thought process: intact Thought Content: SI Cognition:[] Insight:poor Judgment:poor Interventions PRN's used:none Therapeutic interventions: Restraints/seclusion/emergency medication:none Justification of Continued Inpatient Treatment:Continued depressed thoughts and thoughts of self harm needs montoring for safety.
[2018-11-05 07:30] VITALS: BP 141/86
[2018-11-05] MEDS: levetiracetam 250mg tablet PO SCH ×2 (07:52→20:44)
[2018-11-05] MEDS: carBAMazepine Ext. Release 200 MG TAB.ER.12H PO SCH ×2 (07:53→20:43)
[2018-11-05] MEDS: quetiapine 100mg tablet PO SCH (07:54)
[2018-11-05] MEDS: metFORMIN 500mg tablet PO SCH ×2 (07:54→20:42)
[2018-11-05 10:42] LABS: HEMOGLOBIN A1C 6.5 % (4.5-6.2)
--- NOTE | 2018-11-05 10:47 | NUR ---
Patient's A1c is 6.5; DM ed not warranted at this time. Will continue to follow. Addendum: 11/05/18 at [address] Amended: Links added.
[2018-11-05 11:07] LABS: CHOL/HDL RATIO 5.7 (0.00-4.99); CHOLESTEROL 221 MG/DL (0-200); HDL CHOLESTEROL 39 MG/DL (35-60); LDL CHOLESTEROL 142 MG/DL (50-100); TRIGLYCERIDES 220 MG/DL (20-135)
--- NOTE | 2018-11-05 17:28 | NUR ---
Nursing Progress Note: Legal hold: Client on voluntary/involuntary status for DTS. Report received from nurse with use of GURDEEP Foy RN. Why are they here:.Admission note: Pt arrives 1330 on [place] [facility] on a 5150 for DTS. Pt reports feeling depressed and suicidal. Client was recently kicked out of his mothers home and is homeless. Client reports hearing voices and feels the greens laborer from the [facility] is after him and going to kill him. Pt has a plan to "jump out in front of a train." Pt has history of seizures, pancreatitis, diabetes, depression, schizophrenia. Pt cooperative with admission process. Pt taken to shower for 2 RN skin assessment and shower. Assessment What has happened this shift: Pt. asleep at beginning of shift. Pt. woken up for medications and breakfast. Pt. then returned to sleep. Pt. in bed all morning. Pt. states if he gets a diabetic tray again he's going to throw the tray. Pt. says, "I just want to be left alone". Pt. denies SI/HI. Pt. reports he hearing command aduitory hallucinations telling him to drink ETOH and do lines of meth. S/I, H/I: Denies A/VH: Denies Sleep: Good ADL's: Independent Group attendance: No Were meds taken: Yes Any med S/E: None reported/None observed Mental Status Exam Appearance: Discheveled, unshaven, wearing green scrubs. Eye contact: Poor Behavior: Isolative. Speech: Clear Mood: Agitated, easily frustrated. Affect: Flat Thought process: Linear Thought Content: Food Cognition: A&Ox4 Insight:poor Judgment:poor Interventions PRN's used:none Therapeutic interventions: Restraints/seclusion/emergency medication:none Justification of Continued Inpatient Treatment:Continued depressed thoughts and thoughts of self harm needs montoring for safety.
[2018-11-05 20:00] VITALS: BP 173/95
[2018-11-05] MEDS: olanzapine 10mg tablet PO SCH (20:42)
--- NOTE | 2018-11-05 22:11 | NUR ---
Nursing Progress Note: Legal hold: Client on voluntary/involuntary status for DTS. Report received from nurse with use of GURDEEP Hawkins RN. Why are they here:.Admission note: Pt arrives 1330 on [place] [facility] on a 5150 for DTS. Pt reports feeling depressed and suicidal. Client was recently kicked out of his mothers home and is homeless. Client reports hearing voices and feels the wire harness assembler from the [facility] is after him and going to kill him. Pt has a plan to "jump out in front of a train." Pt has history of seizures, pancreatitis, diabetes, depression, schizophrenia. Pt cooperative with admission process. Pt taken to shower for 2 RN skin assessment and shower. Assessment What has happened this shift: Pt. up and in Rec room at beginning of shift watching tv with peers Pt. woken up for medications. Patient was agitated over his food tray calmed down after right tray received. During interview Pt. says, "I just want to be left alone". Pt. denies SI/HI. Pt. reports he hearing command aduitory hallucinations telling him to drink ETOH and do lines of meth. S/I, H/I: Denies A/VH: Denies Sleep: Good ADL's: Independent Group attendance: No Were meds taken: Yes Any med S/E: None reported/None observed Mental Status Exam Appearance: Discheveled, unshaven, wearing green scrubs. Eye contact: Poor Behavior: Isolative. Speech: Clear Mood: Agitated, easily frustrated. Affect: Flat Thought process: Linear Thought Content: Food Cognition: A&Ox4 Insight:poor Judgment:poor Interventions PRN's used:none Therapeutic interventions: Restraints/seclusion/emergency medication:none Justification of Continued Inpatient Treatment:Continued depressed thoughts and thoughts of self harm needs montoring for safety.
[2018-11-06] MEDS: levetiracetam 250mg tablet PO SCH ×2 (08:00→20:32)
[2018-11-06] MEDS: metFORMIN 500mg tablet PO SCH ×2 (08:00→20:31)
[2018-11-06] MEDS: carBAMazepine Ext. Release 200 MG TAB.ER.12H PO SCH ×2 (08:01→20:31)
[2018-11-06] MEDS: quetiapine 100mg tablet PO SCH (08:04)
[2018-11-06 08:06] VITALS: BP 148/90
--- NOTE | 2018-11-06 16:04 | NUR ---
Nursing Progress Note: ADALID Legal hold:5150 Client on voluntary/involuntary status for DTS. Report received from nurse with use of GURDEEP Santos RN. Why are they here: Pt arrives 1330 on [place] [facility] on a 5150 for DTS. Pt reports feeling depressed and suicidal. Client was recently kicked out of his mothers home and is homeless. Client reports hearing voices and feels the director of patient care from the [facility] is after him and going to kill him. Pt has a plan to "jump out in front of a train." Pt has history of seizures, pancreatitis, diabetes, depression, schizophrenia. Assessment What has happened this shift: Pt. sleeping at change of shift. RN attempted to administer his medications during breakfast but pt was elusive and quickly went to his room and laid down. Pt unwilling to engage in assessment as he laid in bed with his eyes closed uninterested in conversation. Pt. took medications quickly, smiled (endentulous) and quickly went back to sleep. Pt slept most of the day, only getting up for meals. Pt. denies SI/HI, reports regular BM's. Pt. AH and did not wish to elaborate. S/I, H/I: Denies A/VH: Confirms Sleep: 7.75hrs NOC, napped most of the day today ADL's: Independent Group attendance: No Were meds taken: Yes Any med S/E: None reported/None observed Mental Status Exam Appearance: Discheveled, unshaven, wearing green scrubs, edentulous Eye contact: Poor/None Behavior: Isolative Speech: Clear, poverty Mood: guarded Affect: Flat Thought process: poverty Thought Content: focused on being left alone Cognition: A&Ox4 Insight:poor Judgment:poor Interventions PRN's used:none Therapeutic interventions: Restraints/seclusion/emergency medication:none Justification of Continued Inpatient Treatment: Continued depressed thoughts and thoughts of self harm needs montoring for safety.
[2018-11-06 19:57] VITALS: BP 151/74
[2018-11-06] MEDS: olanzapine 10mg tablet PO SCH (20:31)
--- NOTE | 2018-11-06 22:52 | NUR ---
Nursing Progress Note: ADALID Legal hold:5150 Client on voluntary/involuntary status for DTS. Report received from nurse with use of GURDEEP Hawkins RN. Why are they here: Pt arrives 1330 on [place] [facility] on a 5150 for DTS. Pt reports feeling depressed and suicidal. Client was recently kicked out of his mothers home and is homeless. Client reports hearing voices and feels the assistant curator from the [facility] is after him and going to kill him. Pt has a plan to "jump out in front of a train." Pt has history of seizures, pancreatitis, diabetes, depression, schizophrenia. Assessment What has happened this shift: Patient asleep and had to be awakened for medication. Pt. took medications quickly, smiled and quickly went back to sleep. Patient states that his voices are decreasing no longer feels like hurting him self. Pt slept most of the day getting up for meals and snack. Pt. denies SI/HI, reports regular BM's. S/I, H/I: Denies A/VH: Confirms Sleep: 7.75hrs NOC, napped most of the day today ADL's: Independent Group attendance: No Were meds taken: Yes Any med S/E: None reported/None observed Mental Status Exam Appearance: Discheveled, unshaven, wearing green scrubs, edentulous Eye contact: Poor/None Behavior: Isolative Speech: Clear, poverty Mood: guarded Affect: Flat Thought process: poverty Thought Content: focused on being left alone Cognition: A&Ox4 Insight:poor Judgment:poor Interventions PRN's used:none Therapeutic interventions: Restraints/seclusion/emergency medication:none Justification of Continued Inpatient Treatment: Continued depressed thoughts and thoughts of self harm needs montoring for safety.
[2018-11-07] MEDS: acetaminophen 325mg tablet PO PRN (00:44)
[2018-11-07 07:00] VITALS: BP 128/71
[2018-11-07] MEDS: carBAMazepine Ext. Release 200 MG TAB.ER.12H PO SCH ×2 (08:01→20:26)
[2018-11-07] MEDS: levetiracetam 250mg tablet PO SCH ×2 (08:01→20:27)
[2018-11-07] MEDS: quetiapine 100mg tablet PO SCH (08:01)
[2018-11-07] MEDS: metFORMIN 500mg tablet PO SCH ×2 (08:01→20:25)
--- NOTE | 2018-11-07 13:09 | NUR ---
[facility] REFERRAL: SW made TC to Art at , requesting a return contact regarding bed availability for pt. Jenny Dacosta, Die Welder [facility] [id number] Supervised by Vern Munroe, [id number] Addendum: 11/08/18 at 1544 by Jenny Dacosta SS Addition to note: JEFFREY received a return contact from [place], who scheduled appointment w/ pt for 11/09/2018 at 13:00. End note.
--- NOTE | 2018-11-07 16:06 | NUR ---
Nursing Progress Note: ADALID Legal hold:5150 Client on voluntary/involuntary status for DTS. Report received from nurse with use of GURDEEP Cruz RN. Why are they here: [facility] a 5150 for DTS. Pt reports feeling depressed and suicidal. Client was recently kicked out of his mothers home and is homeless. Client reports hearing voices and feels the game technician from the [facility] is after him and going to kill him. Pt has a plan to "jump out in front of a train." Pt has history of seizures, pancreatitis, diabetes, depression, schizophrenia. Assessment What has happened this shift: Pt. sleeping at change of shift. Pt unwilling to engage in assessment, more interested in sleeping. He reports he feels good today, reports having some nightmares last night but states that those are a normal occurance for him. Pt. took medications quickly. Pt slept most of the day, only getting up at mealtime. Pt. denies SI/HI. Pt. reports lingering AH and did not wish to elaborate on the subject. Pt showered today and appeared to be focused on getting his hygiene in order. S/I, H/I: Denies A/VH: Confirms AH, lessening in frequency Sleep: 9.5hrs NOC, napped most of the day today ADL's: Independent Group attendance: No Were meds taken: Yes Any med S/E: None reported/None observed Mental Status Exam Appearance: Discheveled, unshaven, wearing green scrubs, edentulous Eye contact: Poor/None Behavior: Isolative Speech: Clear, poverty Mood: guarded Affect: Flat Thought process: poverty Thought Content: focused on napping Cognition: A&Ox4 Insight:poor Judgment:poor Interventions PRN's used: Therapeutic interventions: Restraints/seclusion/emergency medication:none Justification of Continued Inpatient Treatment: Continued depressed thoughts and thoughts of self harm needs montoring for safety.
[2018-11-07] MEDS: olanzapine 10mg tablet PO SCH (20:25)
[2018-11-07 20:41] VITALS: BP 155/90
--- NOTE | 2018-11-07 22:05 | NUR ---
Nursing Progress Note: ADALID Legal hold:5150 Client on voluntary/involuntary status for DTS. Report received from nurse with use of GURDEEP Hawkins RN. Why are they here: Pt arrives 1330 on [place] [facility] on a 5150 for DTS. Pt reports feeling depressed and suicidal. Client was recently kicked out of his mothers home and is homeless. Client reports hearing voices and feels the acoustical material worker from the [facility] is after him and going to kill him. Pt has a plan to "jump out in front of a train." Pt has history of seizures, pancreatitis, diabetes, depression, schizophrenia. Assessment What has happened this shift: Pt. up in rec room watching tv with peers at change of shift. Pt states that he is not feeling SI at this time and his voices have lessened. He reports he feels good today . Pt showered today and appeared to be focused on getting his hygiene in order. He stated that he is looking forword to going to [facility] for help. S/I, H/I: Denies A/VH: Confirms AH, lessening in frequency Sleep: 9.5hrs NOC, napped most of the day today ADL's: Independent Group attendance: No Were meds taken: Yes Any med S/E: None reported/None observed Mental Status Exam Appearance: Discheveled, unshaven, wearing green scrubs, edentulous Eye contact: Poor/None Behavior: Isolative Speech: Clear, poverty Mood: guarded Affect: Flat Thought process: poverty Thought Content: focused on napping Cognition: A&Ox4 Insight:poor Judgment:poor Interventions PRN's used: Therapeutic interventions: Restraints/seclusion/emergency medication:none Justification of Continued Inpatient Treatment: Continued depressed thoughts and thoughts of self harm needs montoring for safety.
[2018-11-08] MEDS: acetaminophen 325mg tablet PO PRN (06:15)
[2018-11-08 07:51] VITALS: BP 141/81
[2018-11-08] MEDS: metFORMIN 500mg tablet PO SCH ×2 (08:06→20:12)
[2018-11-08] MEDS: quetiapine 100mg tablet PO SCH (08:07)
[2018-11-08] MEDS: levetiracetam 250mg tablet PO SCH ×2 (08:07→20:14)
[2018-11-08] MEDS: carBAMazepine Ext. Release 200 MG TAB.ER.12H PO SCH ×2 (08:07→20:13)
[2018-11-08 12:46] LABS: ANION GAP 9 (8-16); BLOOD UREA NITROGEN 13 MG/DL (7-18); BUN/CREATININE RATIO 14.8 (5.4-32.0); C-REACTIVE PROTEIN 0.54 MG/DL (0.0-0.5); CALCIUM 9.5 MG/DL (8.5-10.1); CHLORIDE 100 MMOL/L (99-107); CREATININE 0.88 MG/DL (0.60-1.10); GLUCOSE 157 MG/DL (70-104); POTASSIUM 4.1 MMOL/L (3.5-5.1); SODIUM 138 MMOL/L (135-145); TOTAL CARBON DIOXIDE 29.4 MMOL/L (24-32); eGFR > 90 ML/MIN
[2018-11-08 13:29] LABS: BASOPHILS % (AUTO) 0.7 % (0-1); EOSINOPHILS # (AUTO) 0.1 X10'3 (0-0.9); EOSINOPHILS % (AUTO) 2.5 % (0-6); HEMATOCRIT 40.6 % (42.0-52.0); HEMOGLOBIN 14.5 g/dl (14.0-17.9); LYMPHOCYTES # (AUTO) 1.3 X10'3 (1.1-4.8); LYMPHOCYTES % (AUTO) 28.6 % (21-51); MEAN CORPUSCULAR HEMOGLOBIN 31.8 PG (27.0-31.0); MEAN CORPUSCULAR HGB CONC 35.8 g/dL (33.0-36.5); MEAN CORPUSCULAR VOLUME 88.7 FL (78-98); MEAN PLATELET VOLUME 8.5 FL (7.4-10.4); MONOCYTES # (AUTO) 0.5 X10'3 (0-0.9); MONOCYTES % (AUTO) 9.7 % (2-12); NEUTROPHILS # (AUTO) 2.7 X10'3 (1.8-7.7); NEUTROPHILS % (AUTO) 58.5 % (42-75); PLATELET COUNT 185 X10'3 (140-440); RED BLOOD COUNT 4.57 X10'6 (4.70-6.10); RED CELL DISTRIBUTION WIDTH 13.4 % (11.5-14.5); WHITE BLOOD COUNT 4.7 X10'3 (4.5-11.0)
--- NOTE | 2018-11-08 13:35 | NUR ---
Nursing Progress Note: Legal hold: N/A Client on voluntary/involuntary status for DTS. Report received from nurse with use of GURDEEP Hernandez RN. Why are they here: Pt arrives 1330 on [place] [facility] on a 5150 for DTS. Pt reports feeling depressed and suicidal. Client was recently kicked out of his mothers home and is homeless. Client reports hearing voices and feels the commission specialist from the [facility] is after him and going to kill him. Pt has a plan to "jump out in front of a train." Pt has history of seizures, pancreatitis, diabetes, depression, schizophrenia. Assessment What has happened this shift: Pt had c/o of a headache last night and was given prn Tylenol towards the end of noc shift, when VS taken this morning, he was still reporting AMADO pain 5/10. However, when asked by this RN at 0810 if he still had a headache, he reported no, he did not. Pt stated "I think it's because I was dreaming so hard...I didn't even wake up when you guys said it was time to get up...weird dreams...I was being chased...and these rats...they were trying to kill me." Pt denied depression, anxiety, SI/HI/VH. When asked about AH he stated "not yet today," but indicated that he usually hears them everyday. Pt c/o of a spider bite on his leg that he believes he got here a couple of days ago. He showed it to this RN, large angry red bump noted on right posterior thigh, indurated with clumps of circular, dried drainage that almost had the appearance of a carlitos dish culture with the clumps of bacteria growing. Notified MIGUEL ANGEL Gonzalez and the hospitalist of the bump. Dr Bradley ordered labs, CBC, CMP, CRP, and a pro-calcitonin level, he said he would come later to assess. Picture taken and placed in pt's chart. Pt reported that Christy is coming here to interview him tomorrow for possible placement. S/I, H/I: Pt denies A/VH: Denies VH, no AH so far today Sleep: Slept 7.75 hours per noc shift report, naps after meals ADL's: Independent Group attendance: No Were meds taken: Yes Any med S/E: None reported/None observed Mental Status Exam Appearance: Disheveled, dressed in hospital scrubs, missing teeth Eye contact: Good Behavior: Pleasant, cooperative Speech: Clear, audible, normal rate and rhythm Mood: appropriate Affect: animated Thought process: linear Thought Content: some concern over what he believes is a spider bite, focus on interview and pending discharge Cognition: A&Ox4 Insight: Fair Judgment: Fair Interventions PRN's used:None Therapeutic interventions:1:1 assessment, establishment of rapport, therapeutic conversation, medication administration/education/monitoring, encouragement to attend groups, discharge process education, Q 15 min safety checks. Restraints/seclusion/emergency medication:none Justification of Continued Inpatient Treatment: Pt states his AH is ongoing, he needs crisis stabilization and medication adjustment/monitoring in a safe and therapeutic environment to prevent decompensation and readmission, he needs placement.
[2018-11-08] MEDS: olanzapine 10mg tablet PO SCH (20:13)
[2018-11-08 20:42] VITALS: BP 136/76
--- NOTE | 2018-11-08 23:07 | NUR ---
Nursing Progress Note: Legal hold: N/A Client on voluntary/involuntary status for DTS. Report received from nurse with use of GURDEEP Hernandez RN. Why are they here: Pt arrives 1330 on [place] [facility] on a 5150 for DTS. Pt reports feeling depressed and suicidal. Client was recently kicked out of his mothers home and is homeless. Client reports hearing voices and feels the research program coordinator from the [facility] is after him and going to kill him. Pt has a plan to "jump out in front of a train." Pt has history of seizures, pancreatitis, diabetes, depression, schizophrenia. Assessment What has happened this shift: Patient isolated to his room more this shift. He states that he is feeling better and denies SIWhen asked about AH he stated "not yet today," but indicated that he usually hears them everyday. Pt c/o of a spider bite on his leg that he believes he got here a couple of days ago. He showed it to this RN, large angry red bump noted on right posterior thigh, indurated with clumps of circular, dried drainage that almost had the appearance of a carlitos dish culture with the clumps of bacteria growing. Notified MIGUEL ANGEL Gonzalez and the hospitalist of the bump. Dr Bradley ordered labs, CBC, CMP, CRP, and a pro-calcitonin level, he said he would come later to assess. Picture taken and placed in pt's chart. Pt reported that Christy is coming here to interview him tomorrow for possible placement. S/I, H/I: Pt denies A/VH: Denies VH, no AH so far today Sleep: Slept 7.75 hours per noc shift report, naps after meals ADL's: Independent Group attendance: No Were meds taken: Yes Any med S/E: None reported/None observed Mental Status Exam Appearance: Disheveled, dressed in hospital scrubs, missing teeth Eye contact: Good Behavior: Pleasant, cooperative Speech: Clear, audible, normal rate and rhythm Mood: appropriate Affect: animated Thought process: linear Thought Content: some concern over what he believes is a spider bite, focus on interview and pending discharge Cognition: A&Ox4 Insight: Fair Judgment: Fair Interventions PRN's used:None Therapeutic interventions:1:1 assessment, establishment of rapport, therapeutic conversation, medication administration/education/monitoring, encouragement to attend groups, discharge process education, Q 15 min safety checks. Restraints/seclusion/emergency medication:none Justification of Continued Inpatient Treatment: Pt states his AH is ongoing, he needs crisis stabilization and medication adjustment/monitoring in a safe and therapeutic environment to prevent decompensation and readmission, he needs placement.
[2018-11-09 08:20] VITALS: BP 141/86
[2018-11-09] MEDS: levetiracetam 250mg tablet PO SCH ×2 (08:41→20:25)
[2018-11-09] MEDS: quetiapine 100mg tablet PO SCH (08:42)
[2018-11-09] MEDS: metFORMIN 500mg tablet PO SCH ×2 (08:42→20:25)
[2018-11-09] MEDS: carBAMazepine Ext. Release 200 MG TAB.ER.12H PO SCH ×2 (08:42→20:25)
[2018-11-09] MEDS: atorvastatin 10mg tablet PO SCH (13:11)
--- NOTE | 2018-11-09 14:51 | NUR ---
DISCHARGE PLANNING: Dieter, from [facility], came to interview Pt today @ !pm and pt has been accepted to [facility]. A bed will be available and Art is able to come pickup pt on Nov.15. Art said he could come pickup patient at discharge. For Medication: Use [facility] - [place] requests patient needs to bring his medications with him, and [facility] is requesting pt is given a 30 day supply of medication. DEVIN Matias Addendum: 11/09/18 at 1900 by Sarina Ordoñez SS Faxed a pre-discharge pkt to [facility] in order to schedule hospital discharge follow-up appt. w/ pt's PCP, was able to schedule appt. DEVIN Matias
--- NOTE | 2018-11-09 16:17 | NUR ---
Nursing Progress Note: Legal hold: N/A Client on voluntary/involuntary status for DTS. Report received from nurse with use of GURDEEP Hernandez RN. Why are they here: Pt arrives 1330 on [place] [facility] on a 5150 for DTS. Pt reports feeling depressed and suicidal. Client was recently kicked out of his mothers home and is homeless. Client reports hearing voices and feels the shredder operator from the [facility] is after him and going to kill him. Pt has a plan to "jump out in front of a train." Pt has history of seizures, pancreatitis, diabetes, depression, schizophrenia. Assessment Patient was asleep at change of shift and up before breakfast. RN 1:1 in patient's room. Patient denies suicidal ideation but states he is depressed. RN asked patient if he is hearing voices and patient states yes and proceeds to tell RN about his strange dreams he had about his ex-girlfriend and her eyes being completely black. Patient is animated and laughing. Patient was happy about a labor service representative from [place] coming to see him. No distress observed. Patient met with [facility] in the early afternoon. Hospitalist evaluated patient's wound and felt it looked like herpes/shingles and ordered Acyclovir 5 X daily. S/I, H/I: Pt denies A/VH: Denies VH, no AH so far today Sleep: Patient took several naps today. ADL's: Independent Group attendance: yes Were meds taken: Yes Any med S/E: None reported/None observed Mental Status Exam Appearance: Disheveled, unshaved in tank top and shorts. Eye contact: Good Behavior: Pleasant, cooperative Speech: Clear, audible, normal rate and rhythm Mood: appropriate Affect: animated Thought process: linear Thought Content: hoping and anticipating good results from meeting with [facility] Cognition: A&Ox4 Insight: Fair Judgment: Fair Interventions PRN's used:None Therapeutic interventions:1:1 assessment, establishment of rapport, therapeutic conversation, medication administration/education/monitoring, encouragement to attend groups, discharge process education, Q 15 min safety checks. Restraints/seclusion/emergency medication:none Justification of Continued Inpatient Treatment: Pt states his AH is ongoing, he needs crisis stabilization and medication adjustment/monitoring in a safe and therapeutic environment to prevent decompensation and readmission, he needs placement.
--- NOTE | 2018-11-09 17:01 | NUR ---
Initial: Great appetite, eating 75-100% of regular diet. Noted elevated LDL and TG, patient taking omega 3 and lipitor. Recommend: 1. continue regular diet 2. bowel care as needed if constipation 3. weekly wts Addendum: 11/09/18 at [address] Amended: Links added.
[2018-11-09] MEDS: olanzapine 10mg tablet PO SCH (20:26)
[2018-11-09] MEDS: omega-3 acid ethyl esters 1GM capsule PO SCH (20:26)
[2018-11-09] MEDS: sulfamethoxazole/trimethoprim DS (800/160mg) tablet PO SCH (20:26)
[2018-11-09 20:52] VITALS: BP 156/86
[2018-11-09] MEDS: cephalexin 250mg capsule PO SCH (23:02)
--- NOTE | 2018-11-10 00:47 | NUR ---
Nursing Progress Note: Legal hold: Voluntary Client on voluntary DTS Report received from nurse with use of SBAR: MANE Enamorado Why are they here: Pt. admitted to [place] [facility] on a 5150 for DTS. Pt reports feeling depressed and suicidal. Client was recently kicked out of his mothers home and is now homeless. Client reports hearing voices and feels the registered diet technician from the [facility] is after him and going to kill him. Pt has a plan to "jump out in front of a train." Pt has history of seizures, pancreatitis, diabetes, depression, schizophrenia. Assessment What has happened this shift: Pt. up in the Group Room at the beginning of the shift interacting appropriately with others, he later requests to take a shower and is able to do so independently. This sign writer letterer or painter introduced self and established rapport, pt. presents as animated and cooperative. He denies any further S/I and reports that he remains only "a little" depressed. Pt. reports ongoing A/H, however when asked to describe them by this sign writer letterer or painter, he states, "They just say weird things that don't make sense." He denies any command A/H, and no delusional statements made. Pt. reports with excitement that his interview went well today and he is looking forward to attending [facility]. Lesion on back of rt. thigh skin is CDI and no drainage noted at this time. No s/s of increased redness or infection, and pt. denies pain at area. He continues on ABTs to treat infection, will monitor. S/I, H/I: Denies A/VH: Ongoing A/H, he states, "They just say weird things that don't make sense." Sleep: Reports he sleeps well ADL's: Independent Group attendance: Reports he attends groups and enjoys [employer] Were meds taken: Yes Any med S/E: None Mental Status Exam Appearance: Neat and appropriately dressed Eye contact: Good Behavior: Cooperative Speech: Soft, WNL Mood: Pleasant Affect: Animated Thought process: WNL Thought Content: Ongoing A/H Cognition: A& O X4 Insight: Fair Judgment: Fair Interventions PRN's used: None Therapeutic interventions: Introduced self and established rapport, ensured contract for safety, maintained a safe and supportive environment, monitored for changes in behavior and needed interventions, provided clear and simple instructions, monitored lesion on rt. thigh for s/s of drainage of infection, and maintained Q 15 min safety checks. Restraints/seclusion/emergency medication: N/A Justification of Continued Inpatient Treatment: Pt. continues to require a safe and supportive environment while awaiting placement, without it he would be at risk for relapse.
[2018-11-10 07:49] VITALS: BP 130/87
[2018-11-10] MEDS: cephalexin 250mg capsule PO SCH ×2 (08:25→16:46)
[2018-11-10] MEDS: atorvastatin 10mg tablet PO SCH (08:26)
[2018-11-10] MEDS: sulfamethoxazole/trimethoprim DS (800/160mg) tablet PO SCH ×2 (08:27→20:33)
[2018-11-10] MEDS: metFORMIN 500mg tablet PO SCH ×2 (08:27→20:34)
[2018-11-10] MEDS: carBAMazepine Ext. Release 200 MG TAB.ER.12H PO SCH ×2 (08:27→20:35)
[2018-11-10] MEDS: quetiapine 100mg tablet PO SCH (08:27)
[2018-11-10] MEDS: levetiracetam 250mg tablet PO SCH ×2 (08:28→20:34)
[2018-11-10] MEDS: omega-3 acid ethyl esters 1GM capsule PO SCH ×2 (08:28→20:33)
--- NOTE | 2018-11-10 16:18 | NUR ---
Nursing Progress Note: Legal hold: N/A Client on voluntary/involuntary status for DTS. Report received from nurse with use of GURDEEP Hernandez RN. Why are they here: Pt arrives 1330 on [place] for [facility] health on a 5150 for DTS. Pt reports feeling depressed and suicidal. Client was recently kicked out of his mothers home and is homeless. Client reports hearing voices and feels the extension service specialist from the [facility] is after him and going to kill him. Pt has a plan to "jump out in front of a train." Pt has history of seizures, pancreatitis, diabetes, depression, schizophrenia. Assessment Patient was asleep at change of shift and RN awoke patient to give medications and advise patient that breakfast. Patient with 1:1 in patient's room. Patient denies suicidal ideation/HI but states he is depressed. Patient is looking forward to going to [facility] but they won't have a bed available until Wednesday. Patient believes if he left here he would be back on drugs. Patient still hearing voices but worse at night. Patient states no auditory hallucinations today. S/I, H/I: Pt denies A/VH: Denies VH, no AH so far today Sleep: Patient took several naps today. ADL's: Independent Group attendance: yes Were meds taken: Yes Any med S/E: None reported/None observed Mental Status Exam Appearance: Disheveled, unshaved in tank top and shorts. Eye contact: Good Behavior: Pleasant, cooperative Speech: Clear, audible, normal rate and rhythm Mood: appropriate Affect: animated Thought process: linear Thought Content: going to [facility] Cognition: A&Ox4 Insight: Fair Judgment: Fair Interventions PRN's used:None Therapeutic interventions:1:1 assessment, establishment of rapport, therapeutic conversation, medication administration/education/monitoring, encouragement to attend groups, discharge process education, Q 15 min safety checks. Restraints/seclusion/emergency medication:none Justification of Continued Inpatient Treatment: Pt states his AH is ongoing, he needs crisis stabilization and medication adjustment/monitoring in a safe and therapeutic environment to prevent decompensation and readmission, he needs placement.
[2018-11-10 20:00] VITALS: BP 158/77
[2018-11-10] MEDS: OLANZAPINE 5 MG TABLET PO SCH (20:36)
[2018-11-11] MEDS: cephalexin 250mg capsule PO SCH ×3 (00:01→16:56)
--- NOTE | 2018-11-11 00:47 | NUR ---
Nursing Progress Note: Legal hold: Voluntary Client on voluntary DTS Report received from nurse with use of SBAR: MANE Lan Why are they here: Pt. admitted to [place] for [facility] health on a 5150 for DTS. Pt reports feeling depressed and suicidal. Client was recently kicked out of his mothers home and is now homeless. Client reports hearing voices and feels the injection operator from the [facility] is after him and going to kill him. Pt has a plan to "jump out in front of a train." Pt has history of seizures, pancreatitis, diabetes, depression, schizophrenia. Assessment What has happened this shift: Pt in group room at shift change interacting appropriately with his peers. Pt is pleasant and cooperative. 1:1 completed at bedside. Pt is enthusiastic about his discharge to [facility] on Wednesday. Pt more hopeful. Pt denies AH, pt states "I always here voices," but is able to distinguish what is his voice. Pt c/o of right bottom tooth pain. Tylenol was administered. Assessed and monitored right posterior thigh, no s/s of infection or drainage noted. Pt's HS Zyprexa as increased to 15 mg, not adverse side effects noted. S/I, H/I: Pt. denies. A/VH: Ongoing A/H, he states, "I always here voices", Pt. is able to distinguish what is appropriate. Sleep: See sleep assessment notation. ADL's: Independent. Pt showered this shift. Group attendance: harvesting supervisor, not group. Were meds taken: Medication compliant Any med S/E: None reported or observed. Mental Status Exam Appearance: Neat and appropriately dressed Eye contact: Good Behavior: Cooperative, goal oriented Speech: Spontaneous, normal rate and rhythm Mood: Pleasant Affect: Animated Thought process: Linear Thought Content: Goal oriented, excited about discharge. Cognition: A& O X4 Insight: Fair Judgment: Fair Interventions PRN's used: Tylenol Therapeutic interventions: Introduced self and established rapport, ensured contract for safety, maintained a safe and supportive environment, monitored for changes in behavior and needed interventions, provided clear and simple instructions, monitored lesion on rt. thigh for s/s of drainage of infection, and maintained Q 15 min safety checks. Restraints/seclusion/emergency medication: N/A Justification of Continued Inpatient Treatment: Pt. continues to require a safe and supportive environment while awaiting placement, without it he would be at risk for relapse.
[2018-11-11 07:41] VITALS: BP 164/88
[2018-11-11] MEDS: sulfamethoxazole/trimethoprim DS (800/160mg) tablet PO SCH ×2 (08:47→20:47)
[2018-11-11] MEDS: levetiracetam 250mg tablet PO SCH ×2 (08:47→20:46)
[2018-11-11] MEDS: quetiapine 100mg tablet PO SCH (08:48)
[2018-11-11] MEDS: metFORMIN 500mg tablet PO SCH ×2 (08:48→20:46)
[2018-11-11] MEDS: omega-3 acid ethyl esters 1GM capsule PO SCH ×2 (09:05→20:47)
[2018-11-11] MEDS: atorvastatin 10mg tablet PO SCH (09:05)
[2018-11-11] MEDS: carBAMazepine Ext. Release 200 MG TAB.ER.12H PO SCH ×2 (09:07→20:46)
[2018-11-11 19:51] VITALS: BP 134/81
[2018-11-11] MEDS: OLANZAPINE 5 MG TABLET PO SCH (20:45)
[2018-11-11] MEDS: lactobacillus rhamnosus 10,000 MMU CELLS/CAPSULE PO SCH (20:46)
--- NOTE | 2018-11-11 23:20 | NUR ---
ursing Progress Note: Legal hold: Voluntary Client on voluntary DTS Report received from nurse with use of SBAR: MANE Lan Why are they here: Pt. admitted to [facility] on a 5150 for DTS. Pt reports feeling depressed and suicidal. Client was recently kicked out of his mothers home and is now homeless. Client reports hearing voices and feels the exterminator helper termite from the [facility] is after him and going to kill him. Pt has a plan to "jump out in front of a train." Pt has history of seizures, pancreatitis, diabetes, depression, schizophrenia. Assessment What has happened this shift: Pt in group room at shift change interacting appropriately with his peers. Pt is pleasant and cooperative. 1:1 completed at bedside. Pt continues to be enthusiastic about his discharge to [facility] on Wednesday. Pt denies SI, voices are quiet today. Pt medication compliant. No delusional statements made. Pt retired to be after HS med pass. S/I, H/I: Pt. denies. A/VH: Ongoing A/H, he states, "I always here voices", Pt. is able to distinguish what is appropriate. Sleep: See sleep assessment notation. ADL's: Independent. Pt showered this shift. 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 Were meds taken: Medication compliant Any med S/E: None reported or observed. Mental Status Exam Appearance: Neat and appropriately dressed Eye contact: Good Behavior: Cooperative, goal oriented Speech: Spontaneous, normal rate and rhythm Mood: Pleasant Affect: Animated Thought process: Linear Thought Content: Goal oriented, excited about discharge. Cognition: A& O X4 Insight: Fair Judgment: Fair Interventions PRN's used: None Therapeutic interventions: Introduced self and established rapport, ensured contract for safety, maintained a safe and supportive environment, monitored for changes in behavior and needed interventions, provided clear and simple instructions, monitored lesion on rt. thigh for s/s of drainage of infection, and maintained Q 15 min safety checks. Restraints/seclusion/emergency medication: N/A Justification of Continued Inpatient Treatment: Pt. continues to require a safe and supportive environment while awaiting placement, without it he would be at risk for relapse.
[2018-11-12] MEDS: cephalexin 250mg capsule PO SCH ×3 (00:52→17:00)
[2018-11-12 07:21] VITALS: BP 136/73
[2018-11-12] MEDS: levetiracetam 250mg tablet PO SCH ×2 (08:20→20:33)
[2018-11-12] MEDS: quetiapine 100mg tablet PO SCH (08:21)
[2018-11-12] MEDS: metFORMIN 500mg tablet PO SCH ×2 (08:22→20:33)
[2018-11-12] MEDS: lactobacillus rhamnosus 10,000 MMU CELLS/CAPSULE PO SCH ×2 (08:22→20:33)
[2018-11-12] MEDS: carBAMazepine Ext. Release 200 MG TAB.ER.12H PO SCH ×2 (08:22→20:33)
[2018-11-12] MEDS: sulfamethoxazole/trimethoprim DS (800/160mg) tablet PO SCH ×2 (08:23→20:32)
[2018-11-12] MEDS: omega-3 acid ethyl esters 1GM capsule PO SCH ×2 (08:23→20:33)
[2018-11-12] MEDS: atorvastatin 10mg tablet PO SCH (08:25)
--- NOTE | 2018-11-12 17:40 | NUR ---
[facility] Nursing Progress Note Legal hold: Voluntary. Client on voluntary status for DTS. Report received from nurse with use of GURDEEP Lan RN. Why are they here: Pt arrives 1330 on [facility] on a 5150 for DTS. Pt reports feeling depressed and suicidal. Client was recently kicked out of his mothers home and is homeless. Client reports hearing voices and feels the section plotter operator from the [facility] is after him and going to kill him. Pt has a plan to "jump out in front of a train." Pt has history of seizures, pancreatitis, diabetes, depression, schizophrenia. Assessment Patient sleeping at change of shift. Awakened for breakfast and medications. Medication compliant. Pt. Chronically depressed, GD, cooperative. Reports AH mumbles and some words. S/I, H/I: Pt denies A/VH: Denies Sleep: Patient took several naps today. ADL's: Independent Group attendance: yes Were meds taken: Yes Any med S/E: None reported/None observed Mental Status Exam Appearance: Disheveled, unshaved in tank top and shorts. Eye contact: Good Behavior: Pleasant, cooperative Speech: Clear, audible, normal rate and rhythm Mood: appropriate Affect: animated Thought process: linear Thought Content: going to [place] Cognition: A&Ox4 Insight: Fair Judgment: Fair Interventions PRN's used:None Therapeutic interventions:1:1 assessment, establishment of rapport, therapeutic conversation, medication administration/education/monitoring, encouragement to attend groups, discharge process education, Q 15 min safety checks. Restraints/seclusion/emergency medication:none Justification of Continued Inpatient Treatment: Pt states his AH is ongoing, he needs crisis stabilization and medication adjustment/monitoring in a safe and therapeutic environment to prevent decompensation and readmission, pt. needs placement.
[2018-11-12 19:57] VITALS: BP 140/78
[2018-11-12] MEDS: OLANZAPINE 5 MG TABLET PO SCH (20:33)
--- NOTE | 2018-11-12 23:08 | NUR ---
Nursing Progress Note Legal hold: Voluntary. Client on voluntary status for DTS. Report received from nurse with use of GURDEEP Lan RN. Why are they here: Pt arrives 1330 on [place] [facility] on a 5150 for DTS. Pt reports feeling depressed and suicidal. Client was recently kicked out of his mothers home and is homeless. Client reports hearing voices and feels the server systems administrator from the [facility] is after him and going to kill him. Pt has a plan to "jump out in front of a train." Pt has history of seizures, pancreatitis, diabetes, depression, schizophrenia. Assessment Patient sleeping at change of shift. Awakened for snack. Pt walked around, interacting appropriately with other patients. Pt states he hears voices, but that they are "mumbling and chatterboxing", and that he mainly just tries to ignore them. Pt reports that the voices do not tell him to do anything. Pt took all meds without incident and lied down to sleep after snack time. S/I, H/I: Pt denies A/VH: auditory, pt hears mumbles. Sleep: see sleep assessment. ADL's: Independent Group attendance: yes, pt did attend the snack Were meds taken: Yes Any med S/E: None reported/None observed Mental Status Exam Appearance: Disheveled, unshaved in tank top and shorts. Eye contact: Good Behavior: Pleasant, cooperative Speech: Clear, audible, normal rate and rhythm Mood: appropriate Affect: animated Thought process: linear Thought Content: going to [place] Cognition: A&Ox4 Insight: Fair Judgment: Fair Interventions PRN's used:None Therapeutic interventions:1:1 assessment, establishment of rapport, therapeutic conversation, medication administration/education/monitoring, encouragement to attend groups, discharge process education, Q 15 min safety checks. Restraints/seclusion/emergency medication:none Justification of Continued Inpatient Treatment: Pt states his AH is ongoing, he needs crisis stabilization and medication adjustment/monitoring in a safe and therapeutic environment to prevent decompensation and readmission, pt. needs placement.
[2018-11-13] MEDS: cephalexin 250mg capsule PO SCH ×3 (01:05→16:24)
[2018-11-13] MEDS: levetiracetam 250mg tablet PO SCH (07:54)
[2018-11-13] MEDS: sulfamethoxazole/trimethoprim DS (800/160mg) tablet PO SCH (07:55)
[2018-11-13] MEDS: metFORMIN 500mg tablet PO SCH (07:55)
[2018-11-13] MEDS: lactobacillus rhamnosus 10,000 MMU CELLS/CAPSULE PO SCH (07:55)
[2018-11-13] MEDS: atorvastatin 10mg tablet PO SCH (07:56)
[2018-11-13] MEDS: quetiapine 100mg tablet PO SCH (07:58)
[2018-11-13] MEDS: carBAMazepine Ext. Release 200 MG TAB.ER.12H PO SCH (07:58)
[2018-11-13] MEDS: omega-3 acid ethyl esters 1GM capsule PO SCH (07:59)
[2018-11-13 08:00] VITALS: BP 135/73
[2018-11-13] MEDS ORDERED: METF-950 PO (15:31)
[2018-11-13] MEDS ORDERED: OMEG1CAP PO (15:31)
[2018-11-13] MEDS ORDERED: BACDS PO (15:31)
[2018-11-13] MEDS ORDERED: OLAN5TAB26 PO (15:31)
[2018-11-13] MEDS ORDERED: QUET100T33 PO (15:31)
[2018-11-13] MEDS ORDERED: LEVE10002 PO (15:31)
[2018-11-13] MEDS ORDERED: ATOR10TA PO (15:31)
[2018-11-13] MEDS ORDERED: CEPH250C PO (15:31)
[2018-11-13] MEDS ORDERED: ACYC-202 PO (15:31)
[2018-11-13] MEDS ORDERED: CARB-101 PO (15:31)
--- NOTE | 2018-11-13 17:15 | NUR ---
Nursing Progress Note Legal hold: Voluntary. Client on voluntary status for DTS. Report received from nurse with use of GURDEEP Foy RN. Why are they here: Pt arrives 1330 on [place] for [facility] on a 5150 for DTS. Pt reports feeling depressed and suicidal. Client was recently kicked out of his mothers home and is homeless. Client reports hearing voices and feels the quick print operator from the [facility] is after him and going to kill him. Pt has a plan to "jump out in front of a train." Pt has history of seizures, pancreatitis, diabetes, depression, schizophrenia. Assessment What happened this shift: Pt. asleep at beginning of shift. Pt. awake for breakfast. Pt. took all medications and ate all meals in community room. Pt. bright and cheery this AM, asks with a smile, "Is football on today? And if so can we get some beer with it". 1:1 done at bed side. Pt. dneies SI/HI, A/VH Pt. states he wants to go home, pt. states that he feels he will fail rehab and so it's best just to go home because he has bills to pay. Pt.'s right thigh wound cultured and sent to lab, awaiting results. Pt. to be discharged today. S/I, H/I: Pt denies A/VH: Pt. reports hearing voices that mumble. Sleep: Pt. napped x1 ADL's: Independent Group attendance: Yes Were meds taken: Yes Any med S/E: None reported/None observed Mental Status Exam Appearance: Disheveled, unshaved in tank top and shorts. Eye contact: Good Behavior: Pleasant, cooperative Speech: Clear, audible, normal rate and rhythm Mood: appropriate Affect: animated Thought process: linear Thought Content: Discharge to home. Cognition: A&Ox4 Insight: Fair Judgment: Fair Interventions PRN's used:None Therapeutic interventions:1:1 assessment, establishment of rapport, therapeutic conversation, medication administration/education/monitoring, encouragement to attend groups, discharge process education, Q 15 min safety checks. Restraints/seclusion/emergency medication:none Justification of Continued Inpatient Treatment: Pt states his AH is ongoing, he needs crisis stabilization and medication adjustment/monitoring in a safe and therapeutic environment to prevent decompensation and readmission, pt. needs placement.
--- NOTE | 2018-11-13 18:27 | NUR ---
Pt. discharged to girlfriends home via car driven by girlfriend. Pt.'s valuables and medications returned to him. Pt.'s scripts called into [facility] per pt.'s request. Pt. verbalizes understanding of medication regimen and f/u care. Pt.'s mood improved significantly during admission. Pt. is in no psychological or emotional distress. Pt. denies SI/HI, A/V H. Pt. offer nicotine replacement and refused.
--- NOTE | 2018-11-13 18:52 | NUR ---
DISCHARGE NOTE: Time Out: 1841 Patient Disposition: "I feel good"; Pt Denies SI/HI/AH/VH Mode: Ambulation Transportation: Girlfriend, Alyssa, picking up patient and giving a ride to her home Inventory: All belongings checked out with patient including backpack, wallet, medications, hat, shoes and completed discharge paperwork
== END 2018-11-13 18:45 | disposition home or self-care (01) | DRG 885 ==
LOC: ADULT MH 11:47
PROVIDERS: ADMIT Psychiatry & Neurology Psychiatry; ATTEND Psychiatry & Neurology Psychiatry
DX: F20.9 Schizophrenia, unspecified (principal); R45.851 Suicidal ideations; L03.115 Cellulitis of right lower limb; L02.415 Cutaneous abscess of right lower limb; F10.129 Alcohol abuse with intoxication, unspecified; E11.9 Type 2 diabetes mellitus without complications; F15.10 Other stimulant abuse, uncomplicated; E78.1 Pure hyperglyceridemia; F32.9 Major depressive disorder, single episode, unspecified; G40.909 Epilepsy, unspecified, not intractable, without status epilepticus; I10 Essential (primary) hypertension; Z59.0 Homelessness; Z79.84 Long term (current) use of oral hypoglycemic drugs; Z88.8 Allergy status to other drugs, medicaments and biological substances; Z86.14 Personal history of Methicillin resistant Staphylococcus aureus infection; Z90.49 Acquired absence of other specified parts of digestive tract
CPT/HCPCS: 36415; 80048; 80053; 80061; 80156; 80305; 80320; 83036; 84145; 84443; 85025; 86140; 87070; 87081; 99285

== ENCOUNTER 2018-12-05 14:08 | Emergency (ER) | payer MEDICARE, MEDICAID ==
[~2018-12-05] VITALS: Ht 170.2 cm; Wt 81.8 kg
[~2018-12-05 14:08] MED LIST changes: +ACYC-202 PO; +ATOR10TA PO; +BACDS PO; +CARB-101 PO; -CARB200T8 PO; +CEPH250C PO; -OLAN10TA19 PO; +OLAN5TAB26 PO; +OMEG1CAP PO; -QUET-1 PO; +QUET100T33 PO
[2018-12-05 14:35] VITALS: BP 146/90
[2018-12-05 15:27] LABS: ALANINE AMINOTRANSFERASE 23 U/L (12-78); ALBUMIN 4.6 G/DL (3.4-5.0); ALBUMIN/GLOBULIN RATIO 1.2 (1.1-1.5); ALKALINE PHOSPHATASE 105 IU/L (46-116); ANION GAP 15 (8-16); ASPARTATE AMINO TRANSFERASE 25 U/L (10-37); BILIRUBIN,TOTAL 0.5 MG/DL (0.1-1.0); BLOOD UREA NITROGEN 7 MG/DL (7-18); BUN/CREATININE RATIO 9.1 (5.4-32.0); CALCIUM 8.8 MG/DL (8.5-10.1); CHLORIDE 101 MMOL/L (99-107); CREATININE 0.77 MG/DL (0.60-1.10); GLUCOSE 142 MG/DL (70-104); SODIUM 138 MMOL/L (135-145); TOTAL CARBON DIOXIDE 21.7 MMOL/L (24-32); TOTAL PROTEIN 8.5 G/DL (6.4-8.2); eGFR > 90 ML/MIN
[2018-12-05 15:35] LABS: ETHANOL 0.162 GM/DL (0.0-0.010)
[2018-12-05 15:51] LABS: BASOPHILS % (AUTO) 0.6 % (0-1); EOSINOPHILS # (AUTO) 0.1 X10'3 (0-0.9); EOSINOPHILS % (AUTO) 1.6 % (0-6); HEMATOCRIT 43.4 % (42.0-52.0); HEMOGLOBIN 15.6 g/dl (14.0-17.9); LYMPHOCYTES # (AUTO) 1.5 X10'3 (1.1-4.8); LYMPHOCYTES % (AUTO) 32.3 % (21-51); MEAN CORPUSCULAR HEMOGLOBIN 31.5 PG (27.0-31.0); MEAN CORPUSCULAR VOLUME 87.6 FL (78-98); MEAN PLATELET VOLUME 8.4 FL (7.4-10.4); MONOCYTES # (AUTO) 0.3 X10'3 (0-0.9); MONOCYTES % (AUTO) 6.7 % (2-12); NEUTROPHILS # (AUTO) 2.8 X10'3 (1.8-7.7); NEUTROPHILS % (AUTO) 58.8 % (42-75); PLATELET COUNT 227 X10'3 (140-440); RED BLOOD COUNT 4.95 X10'6 (4.70-6.10); RED CELL DISTRIBUTION WIDTH 14.2 % (11.5-14.5); WHITE BLOOD COUNT 4.7 X10'3 (4.5-11.0)
[2018-12-05 16:31] LABS: LARGE PLATELETS FEW; PLATELET ESTIMATE NORMAL
== END 2018-12-05 16:00 | disposition home or self-care (01) ==
LOC: ER 14:09
DX: F10.129 Alcohol abuse with intoxication, unspecified (principal); F20.9 Schizophrenia, unspecified; I10 Essential (primary) hypertension; E11.9 Type 2 diabetes mellitus without complications; F32.9 Major depressive disorder, single episode, unspecified; F15.90 Other stimulant use, unspecified, uncomplicated; Z90.49 Acquired absence of other specified parts of digestive tract; Z98.890 Other specified postprocedural states; Z59.0 Homelessness; Z86.14 Personal history of Methicillin resistant Staphylococcus aureus infection; Z88.8 Allergy status to other drugs, medicaments and biological substances; Z79.2 Long term (current) use of antibiotics; Z79.84 Long term (current) use of oral hypoglycemic drugs; Z79.899 Other long term (current) drug therapy
CPT/HCPCS: 36415; 80053; 80320; 84443; 85025; 99283

== ENCOUNTER 2019-01-07 14:25 | Emergency (ER) | payer MEDICARE, MEDICAID ==
[~2019-01-07] VITALS: Ht 170.2 cm; Wt 84.1 kg
[2019-01-07] MEDS ORDERED: LORazepam 2 mg/ml vial IV ONE (15:00)
[2019-01-07] MEDS ORDERED: levetiracetam-NS 1000mg/100ml 100 ML IV ONE (15:00)
--- NOTE | 2019-01-07 15:51 | NUR ---
PATIENT REPORTS THAT HE HAS NOT BEEN TAKING HIS BP OR DIABETES MEDICATION
[2019-01-07 16:34] VITALS: BP 128/85
== END 2019-01-07 16:36 | disposition home or self-care (01) ==
LOC: ER 14:26
DX: G40.909 Epilepsy, unspecified, not intractable, without status epilepticus (principal); I10 Essential (primary) hypertension; E11.9 Type 2 diabetes mellitus without complications; F15.90 Other stimulant use, unspecified, uncomplicated; Z59.0 Homelessness; Z90.49 Acquired absence of other specified parts of digestive tract; Z98.890 Other specified postprocedural states; Z88.8 Allergy status to other drugs, medicaments and biological substances; Z79.899 Other long term (current) drug therapy
CPT/HCPCS: 82948; 96374; 96375; 99284; J1953; J2060

== ENCOUNTER 2019-01-29 17:13 | Emergency (ER) | payer MEDICARE, MEDICAID ==
[~2019-01-29] VITALS: Ht 162.6 cm; Wt 82.0 kg
[2019-01-29] MEDS ORDERED: KEP500T PO (18:51)
[2019-01-29] MEDS ORDERED: LEVE10002 PO ×2 (18:51→19:03)
--- NOTE | 2019-01-29 18:59 | NUR ---
DR PATEL INFORMED THAT THE PATIENT IS OUT OF HIS 1000 MG KEPPRA BID AND HIS TEGRETOL [address] PATEL INFORMED THAT THE PATIENT HAS NOT TALEN HIS MEDICATION TODAY OR WEDNESDAY. DR INFORMED THAT DULCE MARIA HAD A SEIZURE TODAY AND THAT PATIENT HAS NOT HAS AN ALCOHOLIC DRINK IN [address] HAD PATIENT UP FOR DISCHARGE
[2019-01-29] MEDS ORDERED: levetiracetam 250mg tablet PO ONE (19:00)
[2019-01-29] MEDS ORDERED: carBAMazepine Ext. Release 200 MG TAB.ER.12H PO ONE (19:00)
[2019-01-29] MEDS ORDERED: CARB200T PO (19:03)
[2019-01-29 19:30] VITALS: BP 153/83
== END 2019-01-29 19:25 | disposition home or self-care (01) ==
LOC: ER 17:14
DX: G40.909 Epilepsy, unspecified, not intractable, without status epilepticus (principal); Z76.0 Encounter for issue of repeat prescription; I10 Essential (primary) hypertension; E11.9 Type 2 diabetes mellitus without complications; F15.90 Other stimulant use, unspecified, uncomplicated; Z59.0 Homelessness; Z98.890 Other specified postprocedural states; Z90.49 Acquired absence of other specified parts of digestive tract; Z88.8 Allergy status to other drugs, medicaments and biological substances; Z79.899 Other long term (current) drug therapy
CPT/HCPCS: 82948; 99283

== ENCOUNTER 2019-02-26 13:46 | Emergency (ER) | payer MEDICARE, MEDICAID ==
[~2019-02-26] VITALS: Ht 170.2 cm; Wt 86.4 kg
[~2019-02-26 13:46] MED LIST changes: +CARB200T PO
[2019-02-26 15:11] LABS: BASOPHILS % (AUTO) 0.5 % (0-1); EOSINOPHILS # (AUTO) 0.1 X10'3 (0-0.9); EOSINOPHILS % (AUTO) 0.6 % (0-6); HEMATOCRIT 39.5 % (42.0-52.0); HEMOGLOBIN 14.2 g/dl (14.0-17.9); LYMPHOCYTES # (AUTO) 1.7 X10'3 (1.1-4.8); LYMPHOCYTES % (AUTO) 18.9 % (21-51); MEAN CORPUSCULAR HEMOGLOBIN 31.2 PG (27.0-31.0); MEAN CORPUSCULAR VOLUME 86.6 FL (78-98); MEAN PLATELET VOLUME 7.3 FL (7.4-10.4); MONOCYTES # (AUTO) 0.9 X10'3 (0-0.9); MONOCYTES % (AUTO) 9.5 % (2-12); NEUTROPHILS # (AUTO) 6.4 X10'3 (1.8-7.7); NEUTROPHILS % (AUTO) 70.5 % (42-75); PLATELET COUNT 269 X10'3 (140-440); RED BLOOD COUNT 4.56 X10'6 (4.70-6.10); RED CELL DISTRIBUTION WIDTH 13.5 % (11.5-14.5)
[2019-02-26] MEDS ORDERED: LEVE10002 PO (15:21)
[2019-02-26] MEDS ORDERED: CARB200T PO (15:21)
[2019-02-26] MEDS ORDERED: METF500T PO (15:21)
[2019-02-26 15:37] LABS: CLARITY,URINE CLEAR (Clear); COLOR,URINE YELLOW (Yellow); GLUCOSE, URINE 250 mg/dl (Neg); KETONES,URINE TRACE mg/dl (Neg); LEUKOCYTE ESTERASE ,URINE NEGATIVE (Neg); NITRITES, URINE NEGATIVE (Neg); OCCULT BLOOD,URINE SMALL (Neg); PROTEIN,URINE TRACE mg/dl (Neg); UROBILINOGEN,URINE 0.2 E.U/dL (0.2-1.0)
[2019-02-26 15:38] LABS: UA COLLECTION TYPE URINAL
[2019-02-26 15:39] LABS: URINE AMPHETAMINE SCREEN POSITIVE (Neg); URINE BARBITUATE SCREEN NEGATIVE (Neg); URINE BENZODIAZEPINES SCREEN NEGATIVE (Neg); URINE CANNABINOID SCREEN NEGATIVE (Neg); URINE COCAINE SCREEN NEGATIVE (Neg); URINE METHADONE SCREEN NEGATIVE (Neg); URINE OPIATE SCREEN NEGATIVE (Neg); URINE PHENCYCLIDINE SCREEN NEGATIVE (Neg)
[2019-02-26 15:42] LABS: PLATELET ESTIMATE NORMAL; SPHEROCYTES FEW
[2019-02-26 15:45] LABS: BACTERIA,URINE NONE SEEN /HPF (Neg); MUCUS STRANDS NONE SEEN /LPF (Neg); RBC,URINE 0-2 /HPF (0-2); SPERM FEW /HPF (NEGATIVE); SQUAMOUS EPITHELIAL CELL,UR NONE SEEN /LPF (FEW); WBC,URINE 0-4 /HPF (0-4)
[2019-02-26] MEDS ORDERED: LORazepam 1 MG tablet PO ONE (15:45)
[2019-02-26 15:48] LABS: ALANINE AMINOTRANSFERASE 25 U/L (12-78); ALBUMIN 4.4 G/DL (3.4-5.0); ALBUMIN/GLOBULIN RATIO 1.4 (1.1-1.5); ALKALINE PHOSPHATASE 83 IU/L (46-116); ANION GAP 11 (8-16); ASPARTATE AMINO TRANSFERASE 19 U/L (10-37); BILIRUBIN,TOTAL 0.5 MG/DL (0.1-1.0); CALCIUM 8.6 MG/DL (8.5-10.1); CHLORIDE 94 MMOL/L (99-107); GLUCOSE 169 MG/DL (70-104); POTASSIUM 3.9 MMOL/L (3.5-5.1); SODIUM 131 MMOL/L (135-145); TOTAL CARBON DIOXIDE 26.4 MMOL/L (24-32); TOTAL PROTEIN 7.5 G/DL (6.4-8.2)
[2019-02-26] MEDS ORDERED: OLAN10TA3 PO (15:53)
[2019-02-26] MEDS ORDERED: IBUP-1984 PO (15:56)
[2019-02-26 15:57] LABS: BLOOD UREA NITROGEN 3 MG/DL (7-18); CARBAMAZEPINE (TEGRETOL) 16.1 UG/ML (4.0-12.0); CREATININE 0.86 MG/DL (0.60-1.10); ETHANOL < 0.010 GM/DL (0.0-0.010); VALPROATE 18 UG/ML (50-100); eGFR > 90 ML/MIN
[2019-02-26 15:58] LABS: BUN/CREATININE RATIO 3.5 (5.4-32.0)
[2019-02-26] MEDS ORDERED: DIVA500T9 PO (16:12)
[2019-02-26] MEDS ORDERED: QUET-1 PO (16:12)
--- NOTE | 2019-02-26 16:35 | NUR ---
Pt moved from ED room 15 to ED overflow to await further evaluation and disposition from [facility].
--- NOTE | 2019-02-26 16:35 | NUR ---
Pt transferred from ER main to overflow bed 25.
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
[2019-02-26] MEDS ORDERED: ibuprofen tablet 400 MG TABLET PO PRN (17:05)
[2019-02-26] MEDS: carBAMazepine Ext. Release 200 MG TAB.ER.12H PO SCH (20:00)
--- NOTE | 2019-02-26 20:06 | NUR ---
V/O Dr Scott/Marcellus Holliday RN, stop tegratol for 24 hours. Re: Tegratol level is 16.1
[2019-02-26] MEDS ORDERED: quetiapine 100mg tablet PO SCH (21:00)
[2019-02-26] MEDS ORDERED: olanzapine 10mg tablet PO SCH (21:00)
--- NOTE | 2019-02-26 21:16 | NUR ---
LE: Patient's packet was sent to [facility] at 1800.
[2019-02-26] MEDS: levetiracetam 250mg tablet PO SCH (21:28)
[2019-02-26] MEDS: metFORMIN 500mg tablet PO SCH (21:28)
--- NOTE | 2019-02-26 21:33 | NUR ---
Pt reports he takes Depakote SR rather than the DR currently reflected on eMAR. Pharmacy contacted for change.
[2019-02-26] MEDS ORDERED: divalproex sodium 500mg tablet.DR PO ONE (21:55)
[2019-02-26] MEDS ORDERED: divalproex sodium 250mg tablet PO ONE (21:55)
[2019-02-27 05:35] VITALS: BP 159/86
--- NOTE | 2019-02-27 06:27 | NUR ---
I have received report from MANE Germain. All questions have been answered, and I have assumed pt care.
--- NOTE | 2019-02-27 07:43 | NUR ---
Pt states he still has SI, with a plan to jump in front of a train or vehicle. Pt states he is having AMADO; it's like people are having a conversation that he can't understand/hear, "but nobody's there."
[2019-02-27] MEDS: carBAMazepine Ext. Release 200 MG TAB.ER.12H PO SCH (08:00)
[2019-02-27] MEDS ORDERED: divalproex sodium 500mg tablet.DR PO SCH ×2 (08:00→21:00)
[2019-02-27] MEDS: levetiracetam 250mg tablet PO SCH (08:26)
[2019-02-27] MEDS: metFORMIN 500mg tablet PO SCH (08:26)
--- NOTE | 2019-02-27 09:43 | NUR ---
pt resting in bed
--- NOTE | 2019-02-27 10:22 | NUR ---
pt sitting at bedside reading magazines.
--- NOTE | 2019-02-27 12:19 | NUR ---
pt sitting at bedside, reading
== END 2019-02-27 13:37 ==
LOC: ER 13:48
DX: R45.851 Suicidal ideations (principal); F15.10 Other stimulant abuse, uncomplicated; F32.9 Major depressive disorder, single episode, unspecified; I10 Essential (primary) hypertension; R00.0 Tachycardia, unspecified; E11.9 Type 2 diabetes mellitus without complications; F20.9 Schizophrenia, unspecified; F29 Unspecified psychosis not due to a substance or known physiological condition; Z88.8 Allergy status to other drugs, medicaments and biological substances; Z79.899 Other long term (current) drug therapy; Z86.14 Personal history of Methicillin resistant Staphylococcus aureus infection; Z90.49 Acquired absence of other specified parts of digestive tract; Z59.0 Homelessness; Z87.19 Personal history of other diseases of the digestive system
CPT/HCPCS: 36415; 80053; 80156; 80164; 80305; 80320; 81001; 82948; 84443; 85025; 99285

== ENCOUNTER 2019-02-27 12:32 | Inpatient (IN) | payer MEDICARE, MEDICAID ==
[~2019-02-27] VITALS: Ht 170.2 cm; Wt 85.2 kg
[~2019-02-27 12:32] MED LIST changes: -ACYC-202 PO; -ATOR10TA PO; -BACDS PO; -CARB-101 PO; -CEPH250C PO; +DIVA500T9 PO; +IBUP-1984 PO; -METF-950 PO; +METF500T PO; +OLAN10TA3 PO; -OLAN5TAB26 PO; -OMEG1CAP PO; +QUET-1 PO; -QUET100T33 PO
[2019-02-27] MEDS ORDERED: acetaminophen 325mg tablet PO PRN ×2 (14:05)
[2019-02-27] MEDS ORDERED: LORazepam 1 MG tablet PO PRN (14:05)
[2019-02-27] MEDS ORDERED: hydrOXYzine 25 MG tablet PO PRN (14:05)
[2019-02-27] MEDS ORDERED: mag hydrox/Alum hydrox/simeth 30ml oral suspension PO PRN (14:05)
[2019-02-27] MEDS ORDERED: loperamide 2mg capsule PO PRN (14:05)
[2019-02-27] MEDS ORDERED: magnesium hydroxide 30ml (MOM) UD suspension PO PRN (14:05)
[2019-02-27 14:10] VITALS: BP 160/90
--- NOTE | 2019-02-27 14:15 | NUR ---
Admit note: [facility] at 1350. Pt states he is "Sick of this life. Im better off ." Pt states he wants to shoot himself to get it over. Pt had a razor removed by security. Pt has history of Schizoeffective, seizures, Diabetes, MRSA, depression.
[2019-02-27] MEDS ORDERED: FLU VACC QS2019-20 36MOS UP/PF 60 MCG/0.5 ML SYRINGE IMVAC ONE (15:45)
--- NOTE | 2019-02-27 18:14 | NUR ---
Pt rates his depression at a 7, currently denies SI. +AH constant jibberish. Pt has DM II, his blood glucose has been stable on Metformin. Pt does not do fingersticks at home.
[2019-02-27] MEDS: ibuprofen tablet 400 MG TABLET PO PRN (18:25)
[2019-02-27 20:00] VITALS: BP 151/92
[2019-02-27] MEDS: carBAMazepine Ext. Release 200 MG TAB.ER.12H PO SCH (20:00)
[2019-02-27] MEDS: quetiapine 100mg tablet PO SCH (20:20)
[2019-02-27] MEDS: olanzapine 10mg tablet PO SCH (20:20)
[2019-02-27] MEDS: levetiracetam 250mg tablet PO SCH (20:20)
[2019-02-27] MEDS: metFORMIN 500mg tablet PO SCH (20:20)
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
[2019-02-28 07:38] LABS: HEMOGLOBIN A1C 6.7 % (4.5-6.2)
[2019-02-28 07:57] LABS: CHOL/HDL RATIO 5.6 (0.00-4.99); CHOLESTEROL 163 MG/DL (0-200); HDL CHOLESTEROL 29 MG/DL (35-60); LDL CHOLESTEROL 94 MG/DL (50-100); TRIGLYCERIDES 284 MG/DL (20-135)
[2019-02-28 08:00] VITALS: BP 100/65
[2019-02-28] MEDS: divalproex sodium 500mg tablet.DR PO SCH (08:15)
[2019-02-28] MEDS: metFORMIN 500mg tablet PO SCH ×2 (08:15→20:23)
[2019-02-28] MEDS: levetiracetam 250mg tablet PO SCH ×2 (08:15→20:23)
[2019-02-28] MEDS: carBAMazepine Ext. Release 200 MG TAB.ER.12H PO SCH ×2 (09:31→20:22)
--- NOTE | 2019-02-28 14:04 | NUR ---
1:1-Assessment Presenting Issues: Pt's on 5150 for dts due to increasing SI after breaking up w/girlfriend and becoming homeless. Interventions: Assessment SS attempted to engage pt in completing his bio-psychosocial assessment, pt refused to participate in assessment, "go away, I don't want to talk to you". Parts of the assessment was completed via chart review. Plan: SS will re-engage w/pt tomorrow to gather additional info & discuss TP & DCP with him. Sindy Olea LCSW Addendum: 02/28/19 at 1411 by Sindy NUNN Amended: Links added.
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
[2019-02-28 20:00] VITALS: BP 117/77
[2019-02-28] MEDS: quetiapine 100mg tablet PO SCH (20:23)
[2019-02-28] MEDS: olanzapine 10mg tablet PO SCH (20:23)
[2019-02-28 21:02] VITALS: BP 117/77
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
[2019-03-01] MEDS: carBAMazepine Ext. Release 200 MG TAB.ER.12H PO SCH ×2 (08:05→20:25)
[2019-03-01] MEDS: divalproex sodium 500mg tablet.DR PO SCH (08:05)
[2019-03-01] MEDS: metFORMIN 500mg tablet PO SCH ×2 (08:05→20:26)
[2019-03-01] MEDS: levetiracetam 250mg tablet PO SCH ×2 (08:05→20:28)
[2019-03-01 08:41] VITALS: BP 119/68
[2019-03-01] MEDS: ibuprofen tablet 400 MG TABLET PO PRN (16:13)
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
[2019-03-01 20:00] VITALS: BP 133/73
[2019-03-01] MEDS: quetiapine 100mg tablet PO SCH (20:25)
[2019-03-01] MEDS: risperiDONE 2mg tablet PO SCH (20:27)
[2019-03-01] MEDS ORDERED: olanzapine 10mg tablet PO SCH (21:00)
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
[2019-03-02 07:42] VITALS: BP 104/51
[2019-03-02] MEDS: metFORMIN 500mg tablet PO SCH ×2 (09:13→20:21)
[2019-03-02] MEDS: carBAMazepine Ext. Release 200 MG TAB.ER.12H PO SCH ×2 (09:13→20:20)
[2019-03-02] MEDS: divalproex sodium 500mg tablet.DR PO SCH ×2 (09:13→20:21)
[2019-03-02] MEDS: levetiracetam 250mg tablet PO SCH ×2 (09:13→20:22)
[2019-03-02] MEDS: risperiDONE 2mg tablet PO SCH (09:13)
[2019-03-02] MEDS ORDERED: paliperidone palmitate inj 234 MG/1.5 ML SYRINGE IM ONE (11:05)
--- NOTE | 2019-03-02 15:28 | NUR ---
CM/Assessment Presenting Issues: Pt here on 5150 for DTS concerns following break up w/girlfriend. Pt unable to provide clear info re his housing situation. Pt is connected w/[facility]. Interventions: Collateral SS had t/c with pt's [facility] Front End Software Developer to gather collateral info to facilitate dcp activities. Per t/c pt cannot rt to apt that he shares w/girlfriend per recent court appearance. Plan: Pt now homeless, will explore appropriateness of [facility] Addendum: 03/02/19 at 1536 by Snidy NUNN Amended: Links added.
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
[2019-03-02 20:00] VITALS: BP 134/72
[2019-03-02] MEDS: quetiapine 100mg tablet PO SCH (20:22)
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
[2019-03-03] MEDS: levetiracetam 250mg tablet PO SCH ×2 (07:56→20:43)
[2019-03-03] MEDS: metFORMIN 500mg tablet PO SCH ×2 (07:56→20:41)
[2019-03-03 08:00] VITALS: BP 136/74
[2019-03-03] MEDS ORDERED: divalproex sodium 500mg tablet.DR PO SCH (08:00)
[2019-03-03] MEDS: carBAMazepine Ext. Release 200 MG TAB.ER.12H PO SCH ×2 (08:07→20:42)
[2019-03-03] MEDS: ibuprofen tablet 400 MG TABLET PO PRN (08:11)
--- NOTE | 2019-03-03 12:06 | NUR ---
Eating well, 75-100% PO diet meeting needs. No nutrition problem. will follow. Recommend: 1. continue carb controlled diet 2. bowel care as needed 3. weekly wts Addendum: 03/03/19 at [address] Amended: Links added.
--- NOTE | 2019-03-03 12:12 | NUR ---
DCP Presenting Issues: Pt is close to d/c-ing and is homeless; pt had previously stayed @ the [facility]. Interventions: CM-DCP/Linkages SS had t/c w/[employer] @ the [facility], per t/c pt is cleared to rt to the [facility] if he wants to utilize their services. Plan: SS to discuss dcp w/pt with option him going to the [facility] or another destination of his choice in [place]. SS will also coordinate transportation & aftercare services w/[facility]. Sindy Corley [employer]PECT[employer] Addendum: 03/03/19 at 1215 by Sindy Corley Amended: Links added.
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
[2019-03-03 20:00] VITALS: BP 160/94
[2019-03-03] MEDS: divalproex sodium 500mg tablet.DR PO SCH (20:42)
[2019-03-03] MEDS: quetiapine 100mg tablet PO SCH (20:42)
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
[2019-03-04 08:00] VITALS: BP 125/70
[2019-03-04] MEDS: metFORMIN 500mg tablet PO SCH ×2 (08:33→20:24)
[2019-03-04] MEDS: levetiracetam 250mg tablet PO SCH ×2 (08:33→20:24)
[2019-03-04] MEDS: carBAMazepine Ext. Release 200 MG TAB.ER.12H PO SCH ×2 (08:33→20:24)
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
[2019-03-04 19:58] VITALS: BP 137/82
[2019-03-04] MEDS: quetiapine 100mg tablet PO SCH (20:24)
[2019-03-04] MEDS: divalproex sodium 500mg tablet.DR PO SCH (20:25)
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
[2019-03-05 07:19] VITALS: BP 155/84
[2019-03-05] MEDS: carBAMazepine Ext. Release 200 MG TAB.ER.12H PO SCH ×2 (07:35→20:22)
[2019-03-05] MEDS: levetiracetam 250mg tablet PO SCH ×2 (07:35→20:22)
[2019-03-05] MEDS: metFORMIN 500mg tablet PO SCH ×2 (07:36→20:24)
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
[2019-03-05] MEDS ORDERED: traZODone 50mg tablet PO SCH (20:00)
[2019-03-05 20:12] VITALS: BP 146/81
[2019-03-05] MEDS: divalproex sodium 500mg tablet.DR PO SCH (20:23)
[2019-03-05] MEDS: quetiapine 100mg tablet PO SCH (20:24)
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
[2019-03-06] MEDS: metFORMIN 500mg tablet PO SCH (07:56)
[2019-03-06] MEDS: carBAMazepine Ext. Release 200 MG TAB.ER.12H PO SCH (07:57)
[2019-03-06] MEDS: levetiracetam 250mg tablet PO SCH (07:58)
[2019-03-06] MEDS ORDERED: paliperidone palmitate 156 mg/ml inj.**IM only IM ONE (08:00)
[2019-03-06 08:18] VITALS: BP 123/84
[2019-03-06] MEDS ORDERED: LEVE10006 PO (16:55)
[2019-03-06] MEDS ORDERED: PALI3TAB5 PO (16:55)
[2019-03-06] MEDS ORDERED: CARB-101 PO (16:55)
[2019-03-06] MEDS ORDERED: TRAZ-251 PO (16:55)
[2019-03-06] MEDS ORDERED: DIVA500T2 PO (16:55)
[2019-03-06] MEDS ORDERED: METF-950 PO (16:55)
--- NOTE | 2019-03-06 17:11 | NUR ---
Patient went to court today and won his court case. Patient to go home to mother who agreed to take him because he sounds so much better. Patient denies suicidal ideation and appears to be doing well. Patient has all his belongings including the medications he brought in. [facility] driving patient to his mother's home. Patient ambulatory, steady gait with tech and security at side.
--- NOTE | 2019-03-06 17:22 | NUR ---
Pt's d/c'd home. SS referral closed. Addendum: 03/06/19 at 1723 by Sindy Corley SS Amended: Links added.
[2019-03-06] MEDS ORDERED: traZODone 50mg tablet PO SCH (20:00)
[2019-03-06] MEDS ORDERED: PALIPERIDONE 3 MG TAB.ER.24 PO SCH (21:00)
== END 2019-03-06 17:11 | disposition home or self-care (01) | DRG 885 ==
LOC: ADULT MH 13:50
PROVIDERS: ADMIT Psychiatry & Neurology Psychiatry; ATTEND Psychiatry & Neurology Psychiatry
DX: F25.1 Schizoaffective disorder, depressive type (principal); R45.851 Suicidal ideations; F15.10 Other stimulant abuse, uncomplicated; F10.10 Alcohol abuse, uncomplicated; G40.909 Epilepsy, unspecified, not intractable, without status epilepticus; E11.9 Type 2 diabetes mellitus without complications; R03.0 Elevated blood-pressure reading, without diagnosis of hypertension; Z83.3 Family history of diabetes mellitus; Z23 Encounter for immunization; Z88.8 Allergy status to other drugs, medicaments and biological substances
CPT/HCPCS: 36415; 80053; 80061; 80156; 80164; 80305; 80320; 81001; 82948; 83036; 84443; 85025; 87081; Q2037

== ENCOUNTER 2019-03-23 11:31 | Inpatient (IN) | payer MEDICARE, MEDICAID ==
[~2019-03-23] VITALS: Ht 170.2 cm; Wt 86.0 kg
[~2019-03-23 11:31] MED LIST changes: +CARB-101 PO; -CARB200T PO; +DIVA500T2 PO; -DIVA500T9 PO; -IBUP-1984 PO; -LEVE10002 PO; +LEVE10006 PO; +METF-950 PO; -METF500T PO; -OLAN10TA3 PO; +PALI3TAB5 PO; -QUET-1 PO; +TRAZ-251 PO
[2019-03-23] MEDS ORDERED: normal saline 1000ml 1,000 ML IV ONE ×3 (12:05→13:00)
[2019-03-23 12:23] LABS: BASOPHILS % (AUTO) 0.2 % (0-1); EOSINOPHILS % (AUTO) 0.1 % (0-6); HEMATOCRIT 43.5 % (42.0-52.0); HEMOGLOBIN 15.2 g/dl (14.0-17.9); LYMPHOCYTES # (AUTO) 0.3 X10'3 (1.1-4.8); LYMPHOCYTES % (AUTO) 1.4 % (21-51); MEAN CORPUSCULAR HGB CONC 35.1 g/dL (33.0-36.5); MEAN CORPUSCULAR VOLUME 88.4 FL (78-98); MEAN PLATELET VOLUME 8.2 FL (7.4-10.4); MONOCYTES # (AUTO) 1.6 X10'3 (0-0.9); MONOCYTES % (AUTO) 8.9 % (2-12); NEUTROPHILS # (AUTO) 15.8 X10'3 (1.8-7.7); NEUTROPHILS % (AUTO) 89.4 % (42-75); PLATELET COUNT 284 X10'3 (140-440); RED BLOOD COUNT 4.92 X10'6 (4.70-6.10); RED CELL DISTRIBUTION WIDTH 13.6 % (11.5-14.5); WHITE BLOOD COUNT 17.7 X10'3 (4.5-11.0)
[2019-03-23 12:37] LABS: ALANINE AMINOTRANSFERASE 49 U/L (12-78); ALBUMIN 4.8 G/DL (3.4-5.0); ALBUMIN/GLOBULIN RATIO 1.3 (1.1-1.5); ALKALINE PHOSPHATASE 92 IU/L (46-116); ANION GAP 22 (8-16); ASPARTATE AMINO TRANSFERASE 43 U/L (10-37); BILIRUBIN,TOTAL 0.7 MG/DL (0.1-1.0); BLOOD UREA NITROGEN 8 MG/DL (7-18); BUN/CREATININE RATIO 6.4 (5.4-32.0); CALCIUM 9.4 MG/DL (8.5-10.1); CHLORIDE 96 MMOL/L (99-107); CREATININE 1.25 MG/DL (0.60-1.10); ETHANOL < 0.010 GM/DL (0.0-0.010); GLUCOSE 331 MG/DL (70-104); LIPASE 59 U/L (73-393); POTASSIUM 4.7 MMOL/L (3.5-5.1); SODIUM 135 MMOL/L (135-145); TOTAL CARBON DIOXIDE 17.2 MMOL/L (24-32); TOTAL PROTEIN 8.5 G/DL (6.4-8.2); eGFR 61 ML/MIN
[2019-03-23 12:42] LABS: PARTIAL THROMBOPLASTIN TIME 23 SECONDS (22-32)
[2019-03-23 12:59] LABS: LACTIC SEPSIS 10.9 MMOL/L (0.4-2.0)
[2019-03-23] MEDS ORDERED: levetiracetam inj 1,000 MG in normal saline 100ml IV soln 90 ML IV ONE (13:05)
[2019-03-23] MEDS ORDERED: levetiracetam-NS 1000mg/100ml 100 ML IV ONE (13:18)
[2019-03-23 13:20] LABS: CLARITY,URINE SLIGHTLY CLOUDY (Clear); COLOR,URINE YELLOW (Yellow); GLUCOSE, URINE >=1000 mg/dl (Neg); KETONES,URINE 15 mg/dl (Neg); LEUKOCYTE ESTERASE ,URINE NEGATIVE (Neg); NITRITES, URINE NEGATIVE (Neg); OCCULT BLOOD,URINE SMALL (Neg); PH,URINE 5.5 (4.8-8.0); PROTEIN,URINE 30 mg/dl (Neg); UROBILINOGEN,URINE 0.2 E.U/dL (0.2-1.0)
[2019-03-23 13:27] LABS: UA COLLECTION TYPE OTHER
[2019-03-23 13:34] LABS: URINE AMPHETAMINE SCREEN POSITIVE (Neg); URINE BARBITUATE SCREEN NEGATIVE (Neg); URINE BENZODIAZEPINES SCREEN NEGATIVE (Neg); URINE CANNABINOID SCREEN NEGATIVE (Neg); URINE COCAINE SCREEN NEGATIVE (Neg); URINE METHADONE SCREEN NEGATIVE (Neg); URINE OPIATE SCREEN NEGATIVE (Neg); URINE PHENCYCLIDINE SCREEN NEGATIVE (Neg)
[2019-03-23 13:35] LABS: SPERM MANY /HPF (NEGATIVE); SQUAMOUS EPITHELIAL CELL,UR FEW /LPF (FEW)
[2019-03-23 13:36] LABS: BACTERIA,URINE 1+ /HPF (Neg); RBC,URINE 0-2 /HPF (0-2)
[2019-03-23 13:37] LABS: FINE GRANULAR CAST 0-3 /LPF (NEGATIVE)
[2019-03-23] MEDS ORDERED: LORazepam 2 mg/ml vial IV ONE ×2 (14:25→16:20)
[2019-03-23] MEDS: insulin regular, human 100 UNIT in normal saline 100ml IV soln 100 ML IV PRN ×4 (14:32→15:32)
--- NOTE | 2019-03-23 14:32 | NUR ---
ALLICris DRAKE, MOTHER [phone]
[2019-03-23] MEDS ORDERED: TRAZ-251 PO (15:53)
[2019-03-23] MEDS ORDERED: LEVE500T PO (15:53)
[2019-03-23] MEDS ORDERED: OLAN10TA19 PO (15:53)
[2019-03-23] MEDS ORDERED: CARB200T2 PO (15:53)
[2019-03-23] MEDS ORDERED: DIVA-76 PO (15:53)
[2019-03-23] MEDS ORDERED: METF-436 PO (15:53)
[2019-03-23] MEDS ORDERED: PALI6TAB PO (15:53)
[2019-03-23] MEDS ORDERED: traZODone 50mg tablet PO PRN (17:10)
--- NOTE | 2019-03-23 17:11 | NUR ---
Spoke with MARK Stephen and received verbal order to stop the Insulin drip at this time. Accucheck is currently 114. Pt given additional dose of IV ativan for ETOH abuse/withdrawl.
[2019-03-23] MEDS ORDERED: morphine 2 MG/ML inj. syringe IV PRN ×2 (17:15)
[2019-03-23] MEDS ORDERED: magnesium Cl slow-release 64mg tablet PO PRN (17:15)
[2019-03-23] MEDS ORDERED: potassium Cl 20 mEq SR tablet PO PRN (17:15)
[2019-03-23] MEDS ORDERED: dextrose ORAL solution 15 GM/59 ML bottle PO PRN ×2 (17:15)
[2019-03-23] MEDS ORDERED: glucagon, human recombinant 1mg kit SUBCUT PRN (17:15)
[2019-03-23] MEDS ORDERED: magnesium 2GM in 50ml NS 50 ML IV PRN (17:15)
[2019-03-23] MEDS ORDERED: HYDROcodone/acetaminophen 10/325mg tab PO PRN (17:15)
[2019-03-23] MEDS ORDERED: haloperidol lactate 5mg/ml inj IM PRN (17:15)
[2019-03-23] MEDS ORDERED: dextrose 50%-water 50ml dispensing syringe IV PRN ×3 (17:15)
[2019-03-23] MEDS ORDERED: diphenhydrAMINE 50 mg/ml inj IV PRN (17:15)
[2019-03-23] MEDS ORDERED: mag hydrox/Alum hydrox/simeth 30ml oral suspension PO PRN (17:15)
[2019-03-23] MEDS ORDERED: haloperidol 5mg tablet PO PRN (17:15)
[2019-03-23] MEDS ORDERED: MESSAGE TO PHARMACY PO ONE (17:15)
[2019-03-23] MEDS ORDERED: HYDROcodone/acetaminophen 5mg/325mg tablet PO PRN (17:15)
[2019-03-23] MEDS ORDERED: ondansetron/PF 4mg/2ml inj IV PRN (17:15)
[2019-03-23] MEDS ORDERED: magnesium 4gm in 100ml NS 100 ML IV PRN (17:15)
[2019-03-23] MEDS ORDERED: diphenhydrAMINE 25mg capsule PO PRN (17:15)
[2019-03-23] MEDS ORDERED: thiamine 100mg/ml 2ml inj. IV ONE (17:15)
[2019-03-23] MEDS ORDERED: potassium CL 10mEq/100ml bag 100 ML IV PRN ×2 (17:15)
[2019-03-23] MEDS ORDERED: magnesium hydroxide 30ml (MOM) UD suspension PO PRN (17:15)
[2019-03-23] MEDS ORDERED: bisacodyl 10mg suppository rectal RC PRN (17:15)
[2019-03-23] MEDS ORDERED: acetaminophen 325mg tablet PO PRN ×2 (17:15)
[2019-03-23] MEDS ORDERED: labetalol 20mg/4ml (5mg/ml) syringe IV ONE (17:30)
[2019-03-23] MEDS ORDERED: labetalol 20mg/4ml (5mg/ml) syringe IV PRN (17:30)
[2019-03-23] MEDS: normal saline 1000ml 1,000 ML IV SCH (17:35)
--- NOTE | 2019-03-23 17:38 | NUR ---
TELE NEURO CONSULT INITIATED
[2019-03-23 18:05] LABS: BASOPHILS % (AUTO) 0.4 % (0-1); EOSINOPHILS % (AUTO) 0.1 % (0-6); HEMATOCRIT 36.4 % (42.0-52.0); HEMOGLOBIN 13.1 g/dl (14.0-17.9); LYMPHOCYTES # (AUTO) 0.8 X10'3 (1.1-4.8); LYMPHOCYTES % (AUTO) 7.9 % (21-51); MEAN CORPUSCULAR HEMOGLOBIN 31.5 PG (27.0-31.0); MEAN CORPUSCULAR HGB CONC 35.9 g/dL (33.0-36.5); MEAN CORPUSCULAR VOLUME 87.8 FL (78-98); MEAN PLATELET VOLUME 7.6 FL (7.4-10.4); MONOCYTES # (AUTO) 1.8 X10'3 (0-0.9); MONOCYTES % (AUTO) 17.8 % (2-12); NEUTROPHILS # (AUTO) 7.3 X10'3 (1.8-7.7); NEUTROPHILS % (AUTO) 73.8 % (42-75); PLATELET COUNT 179 X10'3 (140-440); RED BLOOD COUNT 4.15 X10'6 (4.70-6.10); RED CELL DISTRIBUTION WIDTH 13.5 % (11.5-14.5); WHITE BLOOD COUNT 9.8 X10'3 (4.5-11.0)
[2019-03-23 18:10] LABS: HEMOGLOBIN A1C 6.6 % (4.5-6.2)
--- NOTE | 2019-03-23 18:30 | NUR ---
Patient in room ORTHO 4022. I have received report from MANE Marie and had the opportunity to ask questions and assume patient care.
[2019-03-23 18:33] LABS: CARBAMAZEPINE (TEGRETOL) 3.4 UG/ML (4.0-12.0)
[2019-03-23] MEDS: K and/or MAG REPLACEMENT MC SCH (18:33)
[2019-03-23 19:00] VITALS: BP 184/84
[2019-03-23] MEDS: LORazepam 2 mg/ml vial IV PRN ×2 (20:17→22:54)
[2019-03-23] MEDS: levetiracetam 250mg tablet PO SCH (20:17)
[2019-03-23] MEDS: carBAMazepine Ext. Release 200 MG TAB.ER.12H PO SCH (20:18)
[2019-03-23] MEDS: heparin, porcine 5000 units/ml vial SQ SCH (20:18)
[2019-03-23] MEDS ORDERED: metoprolol tartrate 50mg tablet PO ONE (20:25)
[2019-03-23] MEDS: PALIPERIDONE 3 MG TAB.ER.24 PO SCH (20:30)
[2019-03-23] MEDS: divalproex sodium 500mg tablet.DR PO SCH (20:31)
[2019-03-23 20:35] VITALS: BP 190/97
[2019-03-23] MEDS: insulin glargine (Lantus) pen - multi-dose SQ SCH (21:51)
[2019-03-23 22:00] VITALS: BP 179/80
[2019-03-24] MEDS: normal saline 1000ml 1,000 ML IV SCH ×5 (01:11→23:35)
[2019-03-24] MEDS: CefTRIAXone/D5W-Rocephin 1gm 50 ML IV SCH (01:12)
[2019-03-24] MEDS: LORazepam 2 mg/ml vial IV PRN ×5 (01:28→15:12)
[2019-03-24 01:33] LABS: BASOPHILS % (AUTO) 0.4 % (0-1); EOSINOPHILS % (AUTO) 0.3 % (0-6); HEMATOCRIT 36.9 % (42.0-52.0); HEMOGLOBIN 13.2 g/dl (14.0-17.9); LYMPHOCYTES % (AUTO) 12.5 % (21-51); MEAN CORPUSCULAR HEMOGLOBIN 31.4 PG (27.0-31.0); MEAN CORPUSCULAR HGB CONC 35.8 g/dL (33.0-36.5); MEAN CORPUSCULAR VOLUME 87.7 FL (78-98); MEAN PLATELET VOLUME 7.7 FL (7.4-10.4); MONOCYTES # (AUTO) 1.2 X10'3 (0-0.9); MONOCYTES % (AUTO) 15.6 % (2-12); NEUTROPHILS # (AUTO) 5.5 X10'3 (1.8-7.7); NEUTROPHILS % (AUTO) 71.2 % (42-75); PLATELET COUNT 160 X10'3 (140-440); RED BLOOD COUNT 4.21 X10'6 (4.70-6.10); RED CELL DISTRIBUTION WIDTH 13.4 % (11.5-14.5); WHITE BLOOD COUNT 7.7 X10'3 (4.5-11.0)
[2019-03-24 01:48] LABS: ALANINE AMINOTRANSFERASE 37 U/L (12-78); ALBUMIN 3.6 G/DL (3.4-5.0); ALBUMIN/GLOBULIN RATIO 1.2 (1.1-1.5); ALKALINE PHOSPHATASE 82 IU/L (46-116); ANION GAP 10 (8-16); ASPARTATE AMINO TRANSFERASE 34 U/L (10-37); BILIRUBIN,TOTAL 0.7 MG/DL (0.1-1.0); BLOOD UREA NITROGEN 7 MG/DL (7-18); BUN/CREATININE RATIO 7.8 (5.4-32.0); CALCIUM 7.6 MG/DL (8.5-10.1); CHLORIDE 102 MMOL/L (99-107); GLUCOSE 185 MG/DL (70-104); POTASSIUM 3.5 MMOL/L (3.5-5.1); SODIUM 137 MMOL/L (135-145); TOTAL CARBON DIOXIDE 25.4 MMOL/L (24-32); TOTAL PROTEIN 6.7 G/DL (6.4-8.2); eGFR 89 ML/MIN
[2019-03-24 01:51] LABS: CHOL/HDL RATIO 4.6 (0.00-4.99); CHOLESTEROL 204 MG/DL (0-200); HDL CHOLESTEROL 44 MG/DL (35-60); LDL CHOLESTEROL 118 MG/DL (50-100); PHOSPHORUS 2.4 MG/DL (2.3-4.5); TRIGLYCERIDES 311 MG/DL (20-135)
[2019-03-24 04:17] LABS: TOTAL CELLS COUNTED 100
[2019-03-24 04:19] LABS: PLATELET ESTIMATE NORMAL
[2019-03-24 06:00] VITALS: BP 197/96
--- NOTE | 2019-03-24 06:39 | NUR ---
Problems reprioritized. Patient report given, questions answered & plan of care reviewed with MANE Grissom.
--- NOTE | 2019-03-24 06:44 | NUR ---
Problems reprioritized. Patient report given, questions answered & plan of care reviewed with Yanelis GILLIAM.
[2019-03-24 07:10] VITALS: BP_SYST 171; BP_SYST 172; BP_SYST 173; BP_DIAS 81; BP_DIAS 83; BP_DIAS 85
[2019-03-24] MEDS: K and/or MAG REPLACEMENT MC SCH ×2 (07:36→20:00)
--- NOTE | 2019-03-24 07:51 | NUR ---
Jaciel 4723 Re: Ernesto Ledbetter Pt has tried multiple times to get out of bed and is a high fall risk. Can we get a order for a sitter?
[2019-03-24] MEDS: olanzapine 10mg tablet PO SCH (08:00)
[2019-03-24] MEDS: thiamine 100mg tablet PO SCH (08:06)
[2019-03-24] MEDS: multivitamins, therapeutics tablet PO SCH (08:06)
[2019-03-24] MEDS: folic acid 1mg tablet PO SCH (08:06)
[2019-03-24] MEDS: levetiracetam 250mg tablet PO SCH ×2 (08:06→20:48)
[2019-03-24] MEDS: propranolol 10mg tablet PO SCH ×3 (08:06→20:49)
[2019-03-24] MEDS: heparin, porcine 5000 units/ml vial SQ SCH ×2 (08:06→20:49)
[2019-03-24] MEDS: carBAMazepine Ext. Release 200 MG TAB.ER.12H PO SCH ×2 (08:07→20:48)
[2019-03-24] MEDS: insulin Lispro (HumaLOG) vial - multi-dose SQ SCH ×3 (08:57→19:17)
[2019-03-24 10:00] VITALS: BP 132/82
--- NOTE | 2019-03-24 11:16 | NUR ---
Problems reprioritized. Patient report given, questions answered & plan of care reviewed with Jimenez GILLIAM.
--- NOTE | 2019-03-24 11:30 | NUR ---
Patient in room ORTHO 4022. I have received report from KATIE GILLIAM and had the opportunity to ask questions and assume patient care.
[2019-03-24 15:19] LABS: PHENYTOIN (DILANTIN) < 0.5 UG/ML (10.0-20.0)
[2019-03-24 18:00] VITALS: BP 147/70
--- NOTE | 2019-03-24 18:10 | NUR ---
Problems reprioritized. Patient report given, questions answered & plan of care reviewed with MOIZ GILLIAM.
--- NOTE | 2019-03-24 18:28 | NUR ---
Patient in room ORTHO 4022. I have received report from Jimenez GILLIAM and had the opportunity to ask questions and assume patient care.
[2019-03-24] MEDS: lactobacillus rhamnosus 10,000 MMU CELLS/CAPSULE PO SCH (20:48)
[2019-03-24] MEDS: PALIPERIDONE 3 MG TAB.ER.24 PO SCH (20:49)
[2019-03-24] MEDS: divalproex sodium 500mg tablet.DR PO SCH (20:49)
[2019-03-24 20:50] VITALS: BP_SYST 130; BP_SYST 142; BP_DIAS 72; BP_DIAS 81
[2019-03-24] MEDS: insulin glargine (Lantus) pen - multi-dose SQ SCH (21:08)
[2019-03-24 22:00] VITALS: BP 130/81
[2019-03-25] VITALS (8 sets, daily range): BP systolic 123–167; BP diastolic 64–97
[2019-03-25] MEDS: CefTRIAXone/D5W-Rocephin 1gm 50 ML IV SCH (00:25)
[2019-03-25] MEDS: normal saline 1000ml 1,000 ML IV SCH ×3 (05:53→19:10)
--- NOTE | 2019-03-25 06:26 | NUR ---
Problems reprioritized. Patient report given, questions answered & plan of care reviewed with Hayley GILLIAM.
[2019-03-25 07:27] LABS: ALANINE AMINOTRANSFERASE 29 U/L (12-78); ALBUMIN 2.8 G/DL (3.4-5.0); ALKALINE PHOSPHATASE 68 IU/L (46-116); ANION GAP 10 (8-16); ASPARTATE AMINO TRANSFERASE 25 U/L (10-37); BASOPHILS % (AUTO) 0.5 % (0-1); BILIRUBIN,TOTAL 0.3 MG/DL (0.1-1.0); BLOOD UREA NITROGEN 5 MG/DL (7-18); BUN/CREATININE RATIO 8.1 (5.4-32.0); CALCIUM 7.4 MG/DL (8.5-10.1); CHLORIDE 109 MMOL/L (99-107); CREATININE 0.62 MG/DL (0.60-1.10); EOSINOPHILS # (AUTO) 0.1 X10'3 (0-0.9); EOSINOPHILS % (AUTO) 1.8 % (0-6); GLUCOSE 97 MG/DL (70-104); HEMATOCRIT 32.1 % (42.0-52.0); HEMOGLOBIN 11.1 g/dl (14.0-17.9); LYMPHOCYTES # (AUTO) 1.1 X10'3 (1.1-4.8); LYMPHOCYTES % (AUTO) 25.4 % (21-51); MEAN CORPUSCULAR HEMOGLOBIN 30.9 PG (27.0-31.0); MEAN CORPUSCULAR HGB CONC 34.7 g/dL (33.0-36.5); MEAN PLATELET VOLUME 7.9 FL (7.4-10.4); MONOCYTES # (AUTO) 0.5 X10'3 (0-0.9); MONOCYTES % (AUTO) 10.9 % (2-12); NEUTROPHILS # (AUTO) 2.6 X10'3 (1.8-7.7); NEUTROPHILS % (AUTO) 61.4 % (42-75); PHOSPHORUS 3.3 MG/DL (2.3-4.5); PLATELET COUNT 123 X10'3 (140-440); POTASSIUM 3.5 MMOL/L (3.5-5.1); RED BLOOD COUNT 3.61 X10'6 (4.70-6.10); RED CELL DISTRIBUTION WIDTH 13.4 % (11.5-14.5); SODIUM 145 MMOL/L (135-145); TOTAL CARBON DIOXIDE 26.3 MMOL/L (24-32); TOTAL PROTEIN 5.6 G/DL (6.4-8.2); WHITE BLOOD COUNT 4.2 X10'3 (4.5-11.0); eGFR > 90 ML/MIN
[2019-03-25] MEDS: K and/or MAG REPLACEMENT MC SCH ×2 (08:00→20:00)
[2019-03-25] MEDS: folic acid 1mg tablet PO SCH (08:29)
[2019-03-25] MEDS: lactobacillus rhamnosus 10,000 MMU CELLS/CAPSULE PO SCH ×2 (08:29→20:53)
[2019-03-25] MEDS: carBAMazepine Ext. Release 200 MG TAB.ER.12H PO SCH ×2 (08:29→19:01)
[2019-03-25] MEDS: thiamine 100mg tablet PO SCH (08:30)
[2019-03-25] MEDS: levetiracetam 250mg tablet PO SCH ×2 (08:30→19:01)
[2019-03-25] MEDS: olanzapine 10mg tablet PO SCH (08:30)
[2019-03-25] MEDS: propranolol 10mg tablet PO SCH ×3 (08:30→20:54)
[2019-03-25] MEDS: multivitamins, therapeutics tablet PO SCH (08:30)
[2019-03-25] MEDS: heparin, porcine 5000 units/ml vial SQ SCH ×2 (08:32→20:54)
[2019-03-25] MEDS: insulin Lispro (HumaLOG) vial - multi-dose SQ SCH ×2 (08:37→19:00)
[2019-03-25] MEDS: atorvastatin 20mg tablet PO SCH (10:10)
[2019-03-25] MEDS: fenofibrate 145mg tablet PO SCH (10:10)
--- NOTE | 2019-03-25 13:03 | NUR ---
Pt is sleeping heavily, snoring at this time. BS is 100, bp 115/49, hr 75, breathing regular and even. Pt is difficult to arouse but answers question, "do you want to wake up and eat lunch?" he states no, then goes back to sleep. Pt unable to take meds or eat lunch at this time. WIll continue to monitor. Addendum: 03/25/19 at 1306 by Ysabel Hargrove RN Amended: Links added.
[2019-03-25] MEDS ORDERED: LORazepam 2 mg/ml vial IV PRN (17:15)
[2019-03-25] MEDS ORDERED: LORazepam 1 MG tablet PO PRN (17:15)
[2019-03-25] MEDS: PALIPERIDONE 3 MG TAB.ER.24 PO SCH (19:00)
[2019-03-25] MEDS: divalproex sodium 500mg tablet.DR PO SCH (19:01)
--- NOTE | 2019-03-25 19:37 | NUR ---
Assumed care of patient with verbal report from Hayley GILLIAM at 1800
[2019-03-25] MEDS: insulin glargine (Lantus) pen - multi-dose SQ SCH (21:16)
[2019-03-26] MEDS: CefTRIAXone/D5W-Rocephin 1gm 50 ML IV SCH (01:20)
[2019-03-26] MEDS: normal saline 1000ml 1,000 ML IV SCH ×3 (01:22→15:09)
[2019-03-26 02:00] VITALS: BP_SYST 130; BP_SYST 142; BP_SYST 143; BP_SYST 155; BP_DIAS 60; BP_DIAS 72; BP_DIAS 75; BP_DIAS 81
--- NOTE | 2019-03-26 06:36 | NUR ---
Problems reprioritized. Patient report given, questions answered & plan of care reviewed with ERICK GILLIAM.
[2019-03-26 07:06] VITALS: BP 155/60
[2019-03-26 07:17] VITALS: BP_SYST 166; BP_SYST 178; BP_DIAS 79; BP_DIAS 84
[2019-03-26 07:29] LABS: ALANINE AMINOTRANSFERASE 27 U/L (12-78); ALBUMIN 2.8 G/DL (3.4-5.0); ALBUMIN/GLOBULIN RATIO 0.9 (1.1-1.5); ALKALINE PHOSPHATASE 68 IU/L (46-116); ANION GAP 9 (8-16); ASPARTATE AMINO TRANSFERASE 21 U/L (10-37); BILIRUBIN,TOTAL 0.4 MG/DL (0.1-1.0); BLOOD UREA NITROGEN 6 MG/DL (7-18); BUN/CREATININE RATIO 9.7 (5.4-32.0); CALCIUM 7.7 MG/DL (8.5-10.1); CHLORIDE 109 MMOL/L (99-107); CREATININE 0.62 MG/DL (0.60-1.10); GLUCOSE 65 MG/DL (70-104); MAGNESIUM 1.8 MG/DL (1.5-2.4); PHOSPHORUS 3.5 MG/DL (2.3-4.5); POTASSIUM 3.3 MMOL/L (3.5-5.1); SODIUM 144 MMOL/L (135-145); TOTAL CARBON DIOXIDE 25.7 MMOL/L (24-32); TOTAL PROTEIN 5.9 G/DL (6.4-8.2); eGFR > 90 ML/MIN
[2019-03-26 07:41] LABS: BASOPHILS % (AUTO) 0.6 % (0-1); EOSINOPHILS # (AUTO) 0.1 X10'3 (0-0.9); EOSINOPHILS % (AUTO) 3.4 % (0-6); HEMATOCRIT 32.2 % (42.0-52.0); HEMOGLOBIN 11.3 g/dl (14.0-17.9); LYMPHOCYTES # (AUTO) 0.9 X10'3 (1.1-4.8); LYMPHOCYTES % (AUTO) 23.8 % (21-51); MEAN CORPUSCULAR HEMOGLOBIN 30.9 PG (27.0-31.0); MEAN CORPUSCULAR HGB CONC 35.1 g/dL (33.0-36.5); MEAN CORPUSCULAR VOLUME 88.1 FL (78-98); MONOCYTES # (AUTO) 0.4 X10'3 (0-0.9); MONOCYTES % (AUTO) 10.5 % (2-12); NEUTROPHILS # (AUTO) 2.3 X10'3 (1.8-7.7); NEUTROPHILS % (AUTO) 61.7 % (42-75); PLATELET COUNT 141 X10'3 (140-440); RED BLOOD COUNT 3.65 X10'6 (4.70-6.10); RED CELL DISTRIBUTION WIDTH 13.4 % (11.5-14.5); WHITE BLOOD COUNT 3.7 X10'3 (4.5-11.0)
[2019-03-26] MEDS: lactobacillus rhamnosus 10,000 MMU CELLS/CAPSULE PO SCH (07:45)
[2019-03-26] MEDS: levetiracetam 250mg tablet PO SCH (07:45)
[2019-03-26] MEDS: folic acid 1mg tablet PO SCH (07:45)
[2019-03-26] MEDS: propranolol 10mg tablet PO SCH ×2 (07:45→13:08)
[2019-03-26] MEDS: multivitamins, therapeutics tablet PO SCH (07:46)
[2019-03-26] MEDS: atorvastatin 20mg tablet PO SCH (07:46)
[2019-03-26] MEDS: olanzapine 10mg tablet PO SCH (07:46)
[2019-03-26] MEDS: fenofibrate 145mg tablet PO SCH (07:46)
[2019-03-26] MEDS: thiamine 100mg tablet PO SCH (07:46)
[2019-03-26 07:47] LABS: PLATELET ESTIMATE NORMAL
[2019-03-26] MEDS: heparin, porcine 5000 units/ml vial SQ SCH (07:47)
[2019-03-26 07:48] LABS: SPHEROCYTES FEW
[2019-03-26] MEDS: K and/or MAG REPLACEMENT MC SCH (08:00)
[2019-03-26] MEDS: carBAMazepine Ext. Release 200 MG TAB.ER.12H PO SCH (08:07)
[2019-03-26] MEDS: potassium Cl 20 mEq SR tablet PO PRN ×2 (08:08→15:40)
[2019-03-26 10:45] VITALS: BP 150/63
[2019-03-26] MEDS: insulin Lispro (HumaLOG) vial - multi-dose SQ SCH (14:37)
[2019-03-26] MEDS ORDERED: PROP10TA10 PO (16:18)
[2019-03-26] MEDS ORDERED: LACT1CAP26 PO (16:18)
[2019-03-26] MEDS ORDERED: thiamine tablet PO (16:18)
[2019-03-26] MEDS ORDERED: FENO145T25 PO (16:18)
[2019-03-26] MEDS ORDERED: folic acid tablet PO (16:18)
[2019-03-26] MEDS ORDERED: MULT-1179 PO (16:18)
[2019-03-26] MEDS ORDERED: ATOR20TA66 PO (16:18)
[2019-03-26] MEDS ORDERED: CEFD300C3 PO (16:20)
[2019-03-27] MEDS ORDERED: LORazepam 1 MG tablet PO PRN (17:15)
[2019-03-27] MEDS ORDERED: LORazepam 2 mg/ml vial IV PRN (17:15)
--- NOTE | 2019-03-28 14:11 | NUR ---
Case Management DC follow up: Tried pt only phone number, unable to connect, all circuits busy recording. Multiple attempts
== END 2019-03-26 17:10 | disposition home health service (06) | DRG 100 ==
LOC: ER 11:31 → ED HOLD 17:11 → EDBEDREQ 18:33 → ORTHO 4S 18:50
PROVIDERS: ADMIT Family Medicine; ATTEND Family Medicine
PROC: 4A10X4Z Monitoring of Central Nervous Electrical Activity, External Approach (ICD-10-PCS; principal; 2019-03-25)
DX: G40.409 Other generalized epilepsy and epileptic syndromes, not intractable, without status epilepticus (principal); G93.41 Metabolic encephalopathy; E87.2 Acidosis; F10.239 Alcohol dependence with withdrawal, unspecified; N39.0 Urinary tract infection, site not specified; E11.9 Type 2 diabetes mellitus without complications; F15.10 Other stimulant abuse, uncomplicated; F29 Unspecified psychosis not due to a substance or known physiological condition; F32.9 Major depressive disorder, single episode, unspecified; K72.90 Hepatic failure, unspecified without coma; R00.0 Tachycardia, unspecified; R47.81 Slurred speech; F20.9 Schizophrenia, unspecified; F41.9 Anxiety disorder, unspecified; I10 Essential (primary) hypertension; Z79.899 Other long term (current) drug therapy; Z91.14 Patient's other noncompliance with medication regimen; Z91.19 Patient's noncompliance with other medical treatment and regimen; Z59.0 Homelessness; Z88.8 Allergy status to other drugs, medicaments and biological substances; Z86.14 Personal history of Methicillin resistant Staphylococcus aureus infection; Z83.3 Family history of diabetes mellitus; Z71.41 Alcohol abuse counseling and surveillance of alcoholic; Z71.51 Drug abuse counseling and surveillance of drug abuser
CPT/HCPCS: 36415; 70450; 70544; 70551; 71045; 80053; 80061; 80156; 80185; 80305; 80320; 81001; 82140; 82607; 82800; 82948; 83036; 83605; 83690; 83735; 84100; 84443; 84484; 85025; 85610; 85730; 87040; 87081; 87088; 92508; 92616; 93005; 95816; 96365; 97116; 97162; 97530; 99283; G0378; J0696; J1644; J1815; J1953; J2060; J3411; J3490; J7030

== ENCOUNTER 2019-04-16 10:40 | Emergency (ER) | payer MEDICARE, MEDICAID ==
[~2019-04-16] VITALS: Ht 170.2 cm; Wt 84.0 kg
[~2019-04-16 10:40] MED LIST changes: +ATOR20TA66 PO; -CARB-101 PO; +CARB200T2 PO; +CEFD300C3 PO; +DIVA-76 PO; -DIVA500T2 PO; +FENO145T25 PO; +LACT1CAP26 PO; -LEVE10006 PO; +LEVE500T PO; +METF-436 PO; -METF-950 PO; +MULT-1179 PO; +OLAN10TA19 PO; -PALI3TAB5 PO; +PALI6TAB PO; +PROP10TA10 PO; +folic acid tablet PO; +thiamine tablet PO
[2019-04-16 10:52] VITALS: BP 173/93
[2019-04-16] MEDS ORDERED: paliperidone palmitate inj 234 MG/1.5 ML SYRINGE IM ONE (11:25)
== END 2019-04-16 11:45 | disposition home or self-care (01) ==
LOC: ER 10:41
DX: F20.9 Schizophrenia, unspecified (principal); I10 Essential (primary) hypertension; E11.9 Type 2 diabetes mellitus without complications; F32.9 Major depressive disorder, single episode, unspecified; F15.90 Other stimulant use, unspecified, uncomplicated; F10.99 Alcohol use, unspecified with unspecified alcohol-induced disorder; Z76.0 Encounter for issue of repeat prescription; Z59.0 Homelessness; Z86.14 Personal history of Methicillin resistant Staphylococcus aureus infection; Z90.49 Acquired absence of other specified parts of digestive tract; Z98.890 Other specified postprocedural states; Z86.69 Personal history of other diseases of the nervous system and sense organs; Z88.8 Allergy status to other drugs, medicaments and biological substances; Z79.84 Long term (current) use of oral hypoglycemic drugs; Z79.899 Other long term (current) drug therapy; Y90.9 Presence of alcohol in blood, level not specified
CPT/HCPCS: 96372; 99283

== ENCOUNTER 2019-04-21 06:33 | Emergency (ER) | payer MEDICARE, MEDICAID ==
[~2019-04-21] VITALS: Ht 170.2 cm; Wt 83.6 kg
[2019-04-21 06:35] VITALS: BP 174/86
[2019-04-21] MEDS ORDERED: LIDOcaine 1%/PF 5ML 10 MG/ML VIAL SQ ONE (06:50)
[2019-04-21] MEDS: tetanus & diphtheria toxoid (Td) vaccine 0.5ml IMVAC ONE ×2 (07:06→07:15)
[2019-04-21] MEDS ORDERED: TETanus/Pertussis (Acell)/Diphther VAC/PF (Tdap-Adult) 0.5ml syringe IMVAC ONE (07:10)
[2019-04-21] MEDS ORDERED: CEPH500C5 PO (07:24)
[2019-04-21] MEDS ORDERED: cephalexin 250mg capsule PO ONE (07:25)
== END 2019-04-21 07:41 | disposition home or self-care (01) ==
LOC: ER 06:33
DX: L03.011 Cellulitis of right finger (principal); E11.65 Type 2 diabetes mellitus with hyperglycemia; I10 Essential (primary) hypertension; F32.9 Major depressive disorder, single episode, unspecified; F29 Unspecified psychosis not due to a substance or known physiological condition; F20.9 Schizophrenia, unspecified; F15.90 Other stimulant use, unspecified, uncomplicated; Z86.69 Personal history of other diseases of the nervous system and sense organs; Z86.14 Personal history of Methicillin resistant Staphylococcus aureus infection; Z90.49 Acquired absence of other specified parts of digestive tract; Z98.890 Other specified postprocedural states; Z88.8 Allergy status to other drugs, medicaments and biological substances; Z79.2 Long term (current) use of antibiotics; Z79.899 Other long term (current) drug therapy
CPT/HCPCS: 10060; 82948; 90471; 90715; 99283

== ENCOUNTER 2019-07-07 13:56 | Emergency (ER) | payer MEDICARE, MEDICAID ==
[~2019-07-07] VITALS: Ht 170.2 cm; Wt 81.0 kg
[~2019-07-07 13:56] MED LIST changes: -CEFD300C3 PO; +CEPH500C5 PO
[2019-07-07 14:17] VITALS: BP 161/76
[2019-07-07] MEDS ORDERED: OLOP2.5D12 OP (15:31)
[2019-07-07] MEDS ORDERED: SULF1TAB49 PO (15:31)
== END 2019-07-07 15:39 | disposition home or self-care (01) ==
LOC: ER 13:57
DX: J32.9 Chronic sinusitis, unspecified (principal); H57.89 Other specified disorders of eye and adnexa; R09.89 Other specified symptoms and signs involving the circulatory and respiratory systems; R51 Headache; I10 Essential (primary) hypertension; E11.9 Type 2 diabetes mellitus without complications; F32.9 Major depressive disorder, single episode, unspecified; F20.9 Schizophrenia, unspecified; F15.90 Other stimulant use, unspecified, uncomplicated; Z86.69 Personal history of other diseases of the nervous system and sense organs; Z86.14 Personal history of Methicillin resistant Staphylococcus aureus infection; Z90.89 Acquired absence of other organs; Z72.89 Other problems related to lifestyle; Z59.0 Homelessness; Z88.8 Allergy status to other drugs, medicaments and biological substances; Z79.2 Long term (current) use of antibiotics; Z79.899 Other long term (current) drug therapy
CPT/HCPCS: 99283

== ENCOUNTER 2019-11-20 10:31 | Emergency (ER) | payer MEDICARE, MEDICAID ==
[~2019-11-20] VITALS: Ht 170.2 cm; Wt 85.6 kg
[~2019-11-20 10:31] MED LIST changes: +LIDOcaine 1% W/epiNEPHrine 1:100,000 20ml vial ONE; -MULT-1179 PO; +MULT-25 PO; +OLOP2.5D12 OP
[2019-11-20 10:49] VITALS: BP 120/77
[2019-11-20] MEDS ORDERED: AMOX-422 PO (12:15)
[2019-11-20] MEDS ORDERED: IBUP-1984 PO (12:15)
== END 2019-11-20 12:24 | disposition home or self-care (01) ==
LOC: ER 10:32
DX: K04.7 Periapical abscess without sinus (principal); I10 Essential (primary) hypertension; E11.9 Type 2 diabetes mellitus without complications; F32.9 Major depressive disorder, single episode, unspecified; F20.9 Schizophrenia, unspecified; F15.90 Other stimulant use, unspecified, uncomplicated; Z86.69 Personal history of other diseases of the nervous system and sense organs; Z90.49 Acquired absence of other specified parts of digestive tract; Z98.890 Other specified postprocedural states; Z86.14 Personal history of Methicillin resistant Staphylococcus aureus infection; Z72.89 Other problems related to lifestyle; Z88.8 Allergy status to other drugs, medicaments and biological substances; Z79.899 Other long term (current) drug therapy
CPT/HCPCS: 10060; 41800; 99282; 99284

== ENCOUNTER 2019-12-13 10:19 | Emergency (ER) | payer MEDICARE, MEDICAID ==
[~2019-12-13] VITALS: Ht 170.2 cm; Wt 81.9 kg
[~2019-12-13 10:19] MED LIST changes: -LIDOcaine 1% W/epiNEPHrine 1:100,000 20ml vial ONE
[2019-12-13 10:36] VITALS: BP 157/77
--- NOTE | 2019-12-13 11:21 | NUR ---
Male genitalia exam deferred to Provider.
[2019-12-13] MEDS ORDERED: LIDOcaine/epinephrine/tetracaine TOPICAL sol 3 ML syringe TOP ONE (11:35)
[2019-12-13] MEDS ORDERED: mupirocin 2% ointment 22GM TP STA (12:16)
[2019-12-13] MEDS ORDERED: VALA500T41 PO (12:23)
== END 2019-12-13 12:37 | disposition home or self-care (01) ==
LOC: ER 10:20
DX: B00.9 Herpesviral infection, unspecified (principal); N48.89 Other specified disorders of penis; I10 Essential (primary) hypertension; E11.9 Type 2 diabetes mellitus without complications; F32.9 Major depressive disorder, single episode, unspecified; F15.90 Other stimulant use, unspecified, uncomplicated; F20.9 Schizophrenia, unspecified; Z86.69 Personal history of other diseases of the nervous system and sense organs; Z90.49 Acquired absence of other specified parts of digestive tract; Z98.890 Other specified postprocedural states; Z86.14 Personal history of Methicillin resistant Staphylococcus aureus infection; Z59.0 Homelessness; Z72.89 Other problems related to lifestyle; Z88.8 Allergy status to other drugs, medicaments and biological substances; Z79.899 Other long term (current) drug therapy
CPT/HCPCS: 99283

== ENCOUNTER 2020-02-12 13:20 | Inpatient (IN) | payer MEDICARE, MEDICAID ==
[~2020-02-12] VITALS: Ht 167.6 cm; Wt 75.0 kg
[~2020-02-12 13:20] MED LIST changes: +VALA500T41 PO
[2020-02-12] MEDS ORDERED: LORazepam 2 mg/ml vial IV ONE ×2 (13:35→15:40)
[2020-02-12 14:09] LABS: ALANINE AMINOTRANSFERASE 22 U/L (12-78); ALBUMIN 4.7 G/DL (3.4-5.0); ALBUMIN/GLOBULIN RATIO 1.3 (1.1-1.5); ALKALINE PHOSPHATASE 75 IU/L (46-116); ANION GAP 17 (8-16); ASPARTATE AMINO TRANSFERASE 31 U/L (10-37); BILIRUBIN,TOTAL 0.7 MG/DL (0.1-1.0); BLOOD UREA NITROGEN 6 MG/DL (7-18); BUN/CREATININE RATIO 6.3 (5.4-32.0); CALCIUM 9.2 MG/DL (8.5-10.1); CHLORIDE 80 MMOL/L (99-107); CREATININE 0.95 MG/DL (0.60-1.10); GLUCOSE 189 MG/DL (70-104); TOTAL CARBON DIOXIDE 19.9 MMOL/L (24-32); TOTAL PROTEIN 8.4 G/DL (6.4-8.2); eGFR 84 ML/MIN
[2020-02-12 14:13] LABS: SODIUM 117 MMOL/L (135-145)
[2020-02-12 14:29] LABS: CLARITY,URINE SLIGHTLY CLOUDY (Clear); COLOR,URINE YELLOW (Yellow); GLUCOSE, URINE >=1000 mg/dl (Neg); KETONES,URINE 15 mg/dl (Neg); LEUKOCYTE ESTERASE ,URINE NEGATIVE (Neg); NITRITES, URINE NEGATIVE (Neg); OCCULT BLOOD,URINE MODERATE (Neg); PROTEIN,URINE 30 mg/dl (Neg); UA COLLECTION TYPE STRAIGHT CATH; UROBILINOGEN,URINE 0.2 E.U/dL (0.2-1.0)
[2020-02-12 14:35] LABS: SQUAMOUS EPITHELIAL CELL,UR FEW /LPF (FEW)
--- NOTE | 2020-02-12 14:35 | NUR ---
TO CT AT THIS TIME VIA [facility], AWAKE, ALERT, NO SIGNS OF DISTRESS NOTED.
[2020-02-12 14:36] LABS: MUCUS STRANDS FEW /LPF (Neg)
[2020-02-12 14:37] LABS: WBC,URINE 0-4 /HPF (0-4)
[2020-02-12 14:39] LABS: BACTERIA,URINE 1+ /HPF (Neg)
--- NOTE | 2020-02-12 14:45 | NUR ---
IN ROOM, BACK FROM CT VIA [facility], NO SIGNS OF DISTRESS NOTED.
[2020-02-12 15:08] LABS: BASOPHILS % (AUTO) 0.2 % (0-1); EOSINOPHILS % (AUTO) 0.1 % (0-6); LYMPHOCYTES # (AUTO) 0.4 X10'3 (1.1-4.8); LYMPHOCYTES % (AUTO) 3.2 % (21-51); MONOCYTES # (AUTO) 1.1 X10'3 (0-0.9); MONOCYTES % (AUTO) 9.4 % (2-12); NEUTROPHILS # (AUTO) 10.6 X10'3 (1.8-7.7); NEUTROPHILS % (AUTO) 87.1 % (42-75)
[2020-02-12 15:12] LABS: HEMATOCRIT 36.7 % (42.0-52.0); HEMOGLOBIN 13.2 g/dl (14.0-17.9); MEAN CORPUSCULAR HGB CONC 35.9 g/dL (33.0-36.5); MEAN CORPUSCULAR VOLUME 86.3 FL (78-98); MEAN PLATELET VOLUME 6.5 FL (7.4-10.4); PLATELET COUNT 191 X10'3 (140-440); RED BLOOD COUNT 4.26 X10'6 (4.70-6.10); RED CELL DISTRIBUTION WIDTH 14.6 % (11.5-14.5)
[2020-02-12 15:14] LABS: WHITE BLOOD COUNT 12.2 X10'3 (4.5-11.0)
--- NOTE | 2020-02-12 15:22 | NUR ---
RT AT BEDSIDE AT THIS TIME.
[2020-02-12 15:36] LABS: ABG HCO3 20.8 mmol/L (22.0-26.0); ABG OXYGEN SATURATION 97.4 % (94-97); ABG PCO2 (T) 27.6 mmHg (35.0-48.0); ABG PO2 (T) 94.4 mmHg (75.0-100.0); ALLEN'S TEST POSITIVE; FCOHb 1.2 % (0.0-3.9); FMetHb 0.2 % (0.0-1.5); TOTAL HEMOGLOBIN 14.2 G/dl (14.0-18.0)
[2020-02-12 15:36] LABS: URINE AMPHETAMINE SCREEN POSITIVE (Neg); URINE BARBITUATE SCREEN NEGATIVE (Neg); URINE BENZODIAZEPINES SCREEN NEGATIVE (Neg); URINE CANNABINOID SCREEN NEGATIVE (Neg); URINE COCAINE SCREEN NEGATIVE (Neg); URINE METHADONE SCREEN NEGATIVE (Neg); URINE OPIATE SCREEN NEGATIVE (Neg); URINE PHENCYCLIDINE SCREEN NEGATIVE (Neg)
[2020-02-12] MEDS ORDERED: diphenhydrAMINE 50 mg/ml inj IV ONE (15:40)
--- NOTE | 2020-02-12 15:45 | NUR ---
Patient found out of bed, stumbling, unsteady, confused, MIGUEL ANGEL Gaitan aware.
[2020-02-12] MEDS: haloperidol lactate 5mg/ml inj IM ONE ×2 (16:00→17:13)
[2020-02-12 16:06] LABS: TOTAL CELLS COUNTED 100
[2020-02-12 16:08] LABS: PLATELET ESTIMATE NORMAL
--- NOTE | 2020-02-12 16:34 | NUR ---
MIGUEL ANGEL HARMON MADE AWARE HALDOL HELD PENDING PATIENT REACTION TO ATIVAN AND BENADRYL GIVEN (SEE EMAR). HALDOL TO BE HELD PENDING TELE NEURO, PATIENT AWAKE, ALERT, CONTINUED CONFUSION, EASILY REDIRECTED AND ABLE TO FOLLOW SIMPLE COMMANDS.
[2020-02-12] MEDS ORDERED: magnesium 2GM in 50ml NS 50 ML IV PRN (16:45)
[2020-02-12] MEDS ORDERED: potassium CL 10mEq/100ml bag 100 ML IV PRN ×2 (16:45)
[2020-02-12] MEDS: normal saline 1000ml 1,000 ML IV SCH ×2 (16:45→23:25)
[2020-02-12] MEDS ORDERED: metoclopramide 5 mg/ml inj IV PRN (16:45)
[2020-02-12] MEDS ORDERED: potassium Cl 20 mEq SR tablet PO PRN ×2 (16:45)
[2020-02-12] MEDS ORDERED: magnesium Cl slow-release 64mg tablet PO PRN (16:45)
[2020-02-12] MEDS ORDERED: ondansetron/PF 4mg/2ml inj IV PRN (16:45)
[2020-02-12] MEDS ORDERED: magnesium 4gm in 100ml NS 100 ML IV PRN (16:45)
--- NOTE | 2020-02-12 16:45 | NUR ---
TELENEURO IN PROGRESS, PATIENT REQUIRED SOME ASSISTANCE WITH NEURO ASSESSMENT, POOR HISTORIAN, ABLE TO FOLLOW SOME SIMPLE COMMANDS.
--- NOTE | 2020-02-12 17:00 | NUR ---
Patient up out of bed, stumbling, unsteady, easily re directed back to bed, all safety measures in place, SZ pads in place.
--- NOTE | 2020-02-12 17:11 | NUR ---
Per Dr. Alegre, give IM Haldol now, and do not start NS infusion until central line is placed.
--- NOTE | 2020-02-12 17:40 | NUR ---
Waiting for MD for central line placement, MD aware that pt has not had any fluids yet, reports that is what he wants at this time.
--- NOTE | 2020-02-12 17:45 | NUR ---
Patient up at edge of bed, redirected easily back to bed via verbal stimuli, all safety measures in place.
[2020-02-12] MEDS ORDERED: DIVA500T9 PO (17:59)
[2020-02-12] MEDS ORDERED: LUMA42CA PO (17:59)
[2020-02-12] MEDS ORDERED: LISI1TAB51 PO (17:59)
[2020-02-12] MEDS ORDERED: OLAN7.5T9 PO (17:59)
--- NOTE | 2020-02-12 18:08 | NUR ---
Hospitalist pg'ed at this time re: plan of care
--- NOTE | 2020-02-12 18:20 | NUR ---
SBAR Report to Maryann GILLIAM, still awaiting hospitalist return phone call
--- NOTE | 2020-02-12 18:24 | NUR ---
PT ISAAK SAXENA [phone]
[2020-02-12] MEDS: K and/or MAG REPLACEMENT MC SCH (19:53)
[2020-02-12] MEDS: docusate sod 100mg capsule PO SCH (19:54)
[2020-02-12] MEDS: lisinopril 20mg tablet PO SCH (20:46)
[2020-02-12] MEDS ORDERED: OLANZapine 2.5MG tablet PO SCH (21:00)
[2020-02-12] MEDS ORDERED: LUMATEPERONE TOSYLATE PO SCH (21:00)
[2020-02-12 21:15] LABS: HEMOGLOBIN A1C 5.9 % (4.5-6.2)
[2020-02-12 21:18] LABS: ALBUMIN 4.2 G/DL (3.4-5.0); ANION GAP 9 (8-16); BLOOD UREA NITROGEN 4 MG/DL (7-18); CALCIUM 8.5 MG/DL (8.5-10.1); CHLORIDE 86 MMOL/L (99-107); CREATININE 0.67 MG/DL (0.60-1.10); GLUCOSE 133 MG/DL (70-104); POTASSIUM 3.2 MMOL/L (3.5-5.1); eGFR > 90 ML/MIN
[2020-02-12 21:19] LABS: SODIUM 120 MMOL/L (135-145)
--- NOTE | 2020-02-12 22:15 | NUR ---
Patient in room ED 7 transferred to [facility]. I have received report from Maryann GILLIAM and had the opportunity to ask questions and assume patient care. patient transferred on foot from ER [facility] to patient bed. Vitals stable at transfer of care. MRSA swab collected, patient placed on tele and telecommunication tower technician notified. Patient placed on tab alarms due to postictal state. will continue to monitor according to doctor's orders.
[2020-02-12 22:30] VITALS: BP 147/77
[2020-02-13 02:00] VITALS: BP 98/69
--- NOTE | 2020-02-13 02:45 | NUR ---
Spoke to Dr. Castellano concerning patient's psych medications. All of patient's meds are PO and patient is currently NPO status post seizure activity. Contacted pharmacy to work to change patient's meds to IV if possible.
[2020-02-13 05:05] LABS: MEAN CORPUSCULAR VOLUME 87.3 FL (78-98); RED CELL DISTRIBUTION WIDTH 14.5 % (11.5-14.5)
[2020-02-13 05:08] LABS: BASOPHILS % (AUTO) 0.3 % (0-1); EOSINOPHILS # (AUTO) 0.1 X10'3 (0-0.9); EOSINOPHILS % (AUTO) 1.5 % (0-6); HEMOGLOBIN 13.1 g/dl (14.0-17.9); LYMPHOCYTES # (AUTO) 0.8 X10'3 (1.1-4.8); LYMPHOCYTES % (AUTO) 11.1 % (21-51); MEAN CORPUSCULAR HEMOGLOBIN 32.6 PG (27.0-31.0); MEAN CORPUSCULAR HGB CONC 37.4 g/dL (33.0-36.5); MEAN PLATELET VOLUME 7.3 FL (7.4-10.4); MONOCYTES # (AUTO) 1.1 X10'3 (0-0.9); MONOCYTES % (AUTO) 15.3 % (2-12); NEUTROPHILS # (AUTO) 5.2 X10'3 (1.8-7.7); NEUTROPHILS % (AUTO) 71.8 % (42-75); PLATELET COUNT 168 X10'3 (140-440); RED BLOOD COUNT 4.01 X10'6 (4.70-6.10); WHITE BLOOD COUNT 7.2 X10'3 (4.5-11.0)
[2020-02-13 05:18] LABS: ALBUMIN 3.7 G/DL (3.4-5.0); ANION GAP 10 (8-16); BLOOD UREA NITROGEN 7 MG/DL (7-18); BUN/CREATININE RATIO 10.3 (5.4-32.0); CALCIUM 8.4 MG/DL (8.5-10.1); CHLORIDE 90 MMOL/L (99-107); CREATININE 0.68 MG/DL (0.60-1.10); GLUCOSE 149 MG/DL (70-104); MAGNESIUM 2.5 MG/DL (1.5-2.4); POTASSIUM 3.1 MMOL/L (3.5-5.1); SODIUM 122 MMOL/L (135-145); TOTAL CARBON DIOXIDE 22.3 MMOL/L (24-32); eGFR > 90 ML/MIN
[2020-02-13 05:19] LABS: VALPROATE < 3.0 UG/ML (50-100)
--- NOTE | 2020-02-13 06:36 | NUR ---
Problems reprioritized. Patient report given, questions answered & plan of care reviewed with Kavya GILLIAM. Patient stable upon transfer of care.
[2020-02-13 07:00] VITALS: BP 101/52
[2020-02-13 07:15] LABS: TOTAL CELLS COUNTED 100
[2020-02-13 07:16] LABS: PLATELET ESTIMATE NORMAL; SPHEROCYTES 1+
[2020-02-13] MEDS: normal saline 1000ml 1,000 ML IV SCH ×2 (07:56→12:45)
[2020-02-13] MEDS: K and/or MAG REPLACEMENT MC SCH (07:57)
[2020-02-13] MEDS: docusate sod 100mg capsule PO SCH (07:57)
[2020-02-13] MEDS: lisinopril 20mg tablet PO SCH (07:58)
[2020-02-13] MEDS ORDERED: Levetiracetam-NS 500mg/100ml 100 ML IV SCH (08:00)
[2020-02-13] MEDS ORDERED: VALPROATE SOD IV SCH (08:00)
[2020-02-13] MEDS ORDERED: levetiracetam 250mg tablet PO SCH (08:00)
[2020-02-13] MEDS ORDERED: WATER IV SCH (08:00)
[2020-02-13] MEDS ORDERED: divalproex sod 250mg ER (24-hour) tablet PO SCH (08:00)
[2020-02-13] MEDS ORDERED: DEXTROSE 5% IV SCH (08:00)
--- NOTE | 2020-02-13 12:20 | NUR ---
PAGER ID: [phone] MESSAGE: Bishnu Ledbetter [phone] : is there a reason this patient is NPO? he's requesting food. thanks! [phone]
[2020-02-13 12:23] VITALS: BP 104/64
--- NOTE | 2020-02-13 14:36 | NUR ---
PAGER ID: [phone] MESSAGE: Bishnu Ledbetter [phone]: PATIENT WANTING TO SEE YOU.. SAYS HE HASNT SEEN WANTING TO LEAVE AMA. THANKS! [phone]
[2020-02-13 15:00] VITALS: BP 94/58
--- NOTE | 2020-02-13 15:59 | NUR ---
AT BEDSIDE. PATIENT SAID HE WILL NOT BE STAYING ANY LONGER AND HE WOULD LIKE TO SIGN HIMSELF OUT AMA. PATIENT GIVEN AMA PAPERWORK. HE PULLED OUT HIS OWN IV. CANNULA INTACT. PATIENT REMOVED HIS OWN BUSINESS ADMINISTRATION PROGRAM CHAIR. HE HAS BEEN INSTRUCTED BY THE HOSPITALIST TO STOP TAKING HIS HYDROCHLOROTHIAZIDE BECAUSE THAT IS WHAT IS CAUSING HIS SODIUM TO DECREASE. PATIENT IS STABLE AND APPROPRIATE.
[2020-02-13] MEDS ORDERED: OLANZapine **IM** 10 mg inj. IM SCH (21:00)
== END 2020-02-13 15:58 | disposition left against medical advice (07) | DRG 101 ==
LOC: ER 13:20 → ED HOLD 16:45 → PCU 3S 22:15
PROVIDERS: ADMIT Internal Medicine; ATTEND Internal Medicine
DX: G40.909 Epilepsy, unspecified, not intractable, without status epilepticus (principal); E87.1 Hypo-osmolality and hyponatremia; E87.2 Acidosis; F20.9 Schizophrenia, unspecified; Z53.29 Procedure and treatment not carried out because of patient's decision for other reasons; E11.9 Type 2 diabetes mellitus without complications; I10 Essential (primary) hypertension; Z83.3 Family history of diabetes mellitus; Z79.84 Long term (current) use of oral hypoglycemic drugs; F15.90 Other stimulant use, unspecified, uncomplicated; F32.9 Major depressive disorder, single episode, unspecified; Z59.0 Homelessness; Z88.8 Allergy status to other drugs, medicaments and biological substances
CPT/HCPCS: 36415; 36600; 70450; 71045; 80048; 80053; 80164; 80305; 81001; 82140; 82803; 82948; 83036; 83605; 83735; 84300; 85007; 85018; 85025; 87081; 93005; 94760; 96374; 96375; 96376; 97116; 97161; 97530; 99285; G0378; J1200; J1630; J1953; J2060; J7030; J7060

== ENCOUNTER 2020-03-10 00:23 | Emergency (ER) | payer MEDICARE, MEDICAID ==
[~2020-03-10] VITALS: Ht 170.2 cm; Wt 86.4 kg
[~2020-03-10 00:23] MED LIST changes: -ATOR20TA66 PO; -CARB200T2 PO; -CEPH500C5 PO; -DIVA-76 PO; +DIVA500T9 PO; -FENO145T25 PO; -LACT1CAP26 PO; +LISI1TAB51 PO; +LUMA42CA PO; -OLAN10TA19 PO; +OLAN7.5T9 PO; -OLOP2.5D12 OP; -PALI6TAB PO; -PROP10TA10 PO; -TRAZ-251 PO; -VALA500T41 PO; -folic acid tablet PO; -thiamine tablet PO
[2020-03-10 00:32] VITALS: BP 176/98
[2020-03-10 01:22] LABS: ASPARTATE AMINO TRANSFERASE 3 U/L (10-37); BASOPHILS % (AUTO) 0.9 % (0-1); CHLORIDE 98 MMOL/L (99-107); EOSINOPHILS # (AUTO) 0.2 X10'3 (0-0.9); EOSINOPHILS % (AUTO) 4.5 % (0-6); HEMATOCRIT 37.6 % (42.0-52.0); HEMOGLOBIN 13.5 g/dl (14.0-17.9); LYMPHOCYTES # (AUTO) 1.3 X10'3 (1.1-4.8); LYMPHOCYTES % (AUTO) 32.3 % (21-51); MEAN CORPUSCULAR HEMOGLOBIN 32.7 PG (27.0-31.0); MEAN CORPUSCULAR HGB CONC 35.8 g/dL (33.0-36.5); MEAN CORPUSCULAR VOLUME 91.3 FL (78-98); MEAN PLATELET VOLUME 7.7 FL (7.4-10.4); MONOCYTES # (AUTO) 0.5 X10'3 (0-0.9); MONOCYTES % (AUTO) 11.3 % (2-12); NEUTROPHILS # (AUTO) 2.1 X10'3 (1.8-7.7); PLATELET COUNT 200 X10'3 (140-440); POTASSIUM 4.4 MMOL/L (3.5-5.1); RED BLOOD COUNT 4.12 X10'6 (4.70-6.10); RED CELL DISTRIBUTION WIDTH 14.6 % (11.5-14.5); SODIUM 134 MMOL/L (135-145); WHITE BLOOD COUNT 4.2 X10'3 (4.5-11.0)
[2020-03-10] MEDS ORDERED: cyclobenzaprine 10mg tablet PO ONE (01:35)
[2020-03-10] MEDS ORDERED: HYDROcodone/acetaminophen 10/325mg tab PO ONE (01:35)
[2020-03-10 01:37] LABS: ALANINE AMINOTRANSFERASE 18 U/L (12-78); ALBUMIN/GLOBULIN RATIO 1.2 (1.1-1.5); ALKALINE PHOSPHATASE 77 IU/L (46-116); ANION GAP 11 (8-16); BILIRUBIN,TOTAL 0.2 MG/DL (0.1-1.0); BLOOD UREA NITROGEN 8 MG/DL (7-18); CALCIUM 8.4 MG/DL (8.5-10.1); CREATININE 0.89 MG/DL (0.60-1.10); GLUCOSE 207 MG/DL (70-104); TOTAL CARBON DIOXIDE 25.2 MMOL/L (24-32); TOTAL PROTEIN 7.3 G/DL (6.4-8.2); eGFR 90 ML/MIN
[2020-03-10] MEDS ORDERED: NAPR-56 PO (02:36)
[2020-03-10] MEDS ORDERED: HYDR-4383 PO (02:36)
== END 2020-03-10 02:50 | disposition home or self-care (01) ==
LOC: ER 00:24
DX: M54.12 Radiculopathy, cervical region (principal); R73.9 Hyperglycemia, unspecified; I10 Essential (primary) hypertension; F31.9 Bipolar disorder, unspecified; Z59.0 Homelessness; Z88.8 Allergy status to other drugs, medicaments and biological substances; Z87.19 Personal history of other diseases of the digestive system; Z87.81 Personal history of (healed) traumatic fracture; Z79.899 Other long term (current) drug therapy
CPT/HCPCS: 36415; 71045; 72040; 80053; 83880; 84484; 85025; 93005; 99285

== ENCOUNTER 2020-06-06 13:02 | Emergency (ER) | payer MEDICARE, MEDICAID ==
[~2020-06-06] VITALS: Ht 170.2 cm; Wt 86.4 kg
[~2020-06-06 13:02] MED LIST changes: +HYDR-4383 PO
[2020-06-06] MEDS ORDERED: normal saline 1000ML IV soln IVB ONE ×2 (13:45→18:45)
[2020-06-06 13:49] LABS: BASOPHILS % (AUTO) 0.3 % (0-1); EOSINOPHILS # (AUTO) 0.1 X10'3 (0-0.9); EOSINOPHILS % (AUTO) 0.8 % (0-6); HEMATOCRIT 38.7 % (42.0-52.0); HEMOGLOBIN 13.8 g/dl (14.0-17.9); LYMPHOCYTES # (AUTO) 1.3 X10'3 (1.1-4.8); LYMPHOCYTES % (AUTO) 14.1 % (21-51); MEAN CORPUSCULAR HEMOGLOBIN 31.4 PG (27.0-31.0); MEAN CORPUSCULAR HGB CONC 35.7 g/dL (33.0-36.5); MEAN CORPUSCULAR VOLUME 87.9 FL (78-98); MEAN PLATELET VOLUME 8.3 FL (7.4-10.4); MONOCYTES # (AUTO) 1.2 X10'3 (0-0.9); MONOCYTES % (AUTO) 13.1 % (2-12); NEUTROPHILS # (AUTO) 6.4 X10'3 (1.8-7.7); NEUTROPHILS % (AUTO) 71.7 % (42-75); PLATELET COUNT 257 X10'3 (140-440); RED CELL DISTRIBUTION WIDTH 13.3 % (11.5-14.5); WHITE BLOOD COUNT 8.9 X10'3 (4.5-11.0)
--- NOTE | 2020-06-06 14:00 | NUR ---
CONTACTED POISON CONTROL THEY ASKED FOR REPEAT TEGRETOL LEVEL IF ELEVATED, EKG, AND DESK REPORTER. NO CHARCOALL REQUIRED. CASE# [phone]
[2020-06-06 14:45] LABS: ALANINE AMINOTRANSFERASE 24 U/L (12-78); ALBUMIN 4.6 G/DL (3.4-5.0); ALBUMIN/GLOBULIN RATIO 1.4 (1.1-1.5); ALKALINE PHOSPHATASE 77 IU/L (46-116); ANION GAP 12 (8-16); ASPARTATE AMINO TRANSFERASE 18 U/L (10-37); BILIRUBIN,TOTAL 0.4 MG/DL (0.1-1.0); BLOOD UREA NITROGEN 7 MG/DL (7-18); BUN/CREATININE RATIO 10.4 (5.4-32.0); CHLORIDE 89 MMOL/L (99-107); CREATININE 0.67 MG/DL (0.60-1.10); GLUCOSE 172 MG/DL (70-104); POTASSIUM 3.8 MMOL/L (3.5-5.1); SODIUM 125 MMOL/L (135-145); TOTAL CARBON DIOXIDE 24.4 MMOL/L (24-32); TOTAL PROTEIN 7.9 G/DL (6.4-8.2); eGFR > 90 ML/MIN
[2020-06-06 14:53] LABS: ETHANOL < 0.010 GM/DL (0.0-0.010)
[2020-06-06 14:54] LABS: CARBAMAZEPINE (TEGRETOL) 13.4 UG/ML (4.0-12.0)
[2020-06-06 14:58] LABS: ACETAMINOPHEN < 2.0 UG/ML (10-30)
[2020-06-06 16:14] LABS: CLARITY,URINE CLEAR (Clear); COLOR,URINE STRAW (Yellow); GLUCOSE, URINE 500 mg/dl (Neg); KETONES,URINE NEGATIVE (Neg); LEUKOCYTE ESTERASE ,URINE NEGATIVE (Neg); NITRITES, URINE NEGATIVE (Neg); OCCULT BLOOD,URINE MODERATE (Neg); PROTEIN,URINE NEGATIVE (Neg); UROBILINOGEN,URINE 0.2 E.U/dL (0.2-1.0)
[2020-06-06 16:18] LABS: URINE AMPHETAMINE SCREEN POSITIVE (Neg); URINE BARBITUATE SCREEN NEGATIVE (Neg); URINE BENZODIAZEPINES SCREEN NEGATIVE (Neg); URINE CANNABINOID SCREEN NEGATIVE (Neg); URINE COCAINE SCREEN NEGATIVE (Neg); URINE METHADONE SCREEN NEGATIVE (Neg); URINE OPIATE SCREEN NEGATIVE (Neg); URINE PHENCYCLIDINE SCREEN NEGATIVE (Neg)
[2020-06-06 16:22] LABS: UA COLLECTION TYPE URINAL
[2020-06-06 16:26] LABS: SQUAMOUS EPITHELIAL CELL,UR FEW /LPF (FEW)
[2020-06-06 16:27] LABS: BACTERIA,URINE NONE SEEN /HPF (Neg); WBC,URINE NONE SEEN /HPF (0-4)
[2020-06-06] MEDS ORDERED: CARB200T8 PO (16:29)
--- NOTE | 2020-06-06 17:38 | NUR ---
Patient overdosed on 9 Kepra and 3 Tegretol. Patient is calm and cooperative. Packet has not been sent. Patient being transferred from [place] [address]. Report from MANE Neal.
[2020-06-06 18:39] LABS: CARBAMAZEPINE (TEGRETOL) 12.4 UG/ML (4.0-12.0)
--- NOTE | 2020-06-06 18:47 | NUR ---
Per poison controll repeat Tegretol level in 4 hours.
[2020-06-06 19:01] LABS: ALANINE AMINOTRANSFERASE 21 U/L (12-78); ALBUMIN 4.4 G/DL (3.4-5.0); ALBUMIN/GLOBULIN RATIO 1.3 (1.1-1.5); ALKALINE PHOSPHATASE 71 IU/L (46-116); ANION GAP 10 (8-16); ASPARTATE AMINO TRANSFERASE 17 U/L (10-37); BILIRUBIN,TOTAL 0.6 MG/DL (0.1-1.0); BLOOD UREA NITROGEN 6 MG/DL (7-18); BUN/CREATININE RATIO 8.7 (5.4-32.0); CALCIUM 8.8 MG/DL (8.5-10.1); CHLORIDE 92 MMOL/L (99-107); CREATININE 0.69 MG/DL (0.60-1.10); GLUCOSE 138 MG/DL (70-104); POTASSIUM 3.7 MMOL/L (3.5-5.1); SODIUM 130 MMOL/L (135-145); TOTAL CARBON DIOXIDE 28.2 MMOL/L (24-32); TOTAL PROTEIN 7.7 G/DL (6.4-8.2); eGFR > 90 ML/MIN
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
[2020-06-06] MEDS: carBAMazepine 100mg chewable tablet PO SCH (20:00)
[2020-06-06] MEDS: LUMATEPERONE TOSYLATE 42 MG PO SCH ×2 (20:18→21:00)
[2020-06-06] MEDS: metFORMIN 500mg tablet PO SCH (20:20)
[2020-06-06] MEDS: levetiracetam 250mg tablet PO SCH (20:20)
--- NOTE | 2020-06-06 20:36 | NUR ---
pt packet faxed to [facility]
--- NOTE | 2020-06-06 20:43 | NUR ---
The patient has been resting quietly on his bed. He is requesting snack and one was provided for him.
--- NOTE | 2020-06-06 20:44 | NUR ---
tegretol held 2nd to earlier overdose and elevated blood levels.
[2020-06-06] MEDS ORDERED: OLANZapine 2.5MG tablet PO SCH (21:00)
--- NOTE | 2020-06-06 22:19 | NUR ---
The lab was at the bedside to draw labs which the patient was cooperative with.
--- NOTE | 2020-06-06 23:22 | NUR ---
The patient appears to be sleeping
--- NOTE | 2020-06-07 01:49 | NUR ---
The patient appears to be sleeping
--- NOTE | 2020-06-07 04:48 | NUR ---
The patient is awake and asked for and received an extra blanket
[2020-06-07 05:52] VITALS: BP_DIAS 64
--- NOTE | 2020-06-07 06:39 | NUR ---
pt is sleeping, no s/s of distress noted.
[2020-06-07] MEDS: carBAMazepine 100mg chewable tablet PO SCH (07:22)
[2020-06-07] MEDS: metFORMIN 500mg tablet PO SCH (07:22)
[2020-06-07] MEDS: levetiracetam 250mg tablet PO SCH (07:23)
[2020-06-07 07:24] VITALS: BP_SYST 109
[2020-06-07] MEDS ORDERED: HYDROchlorothiazide 12.5mg capsule PO SCH (08:00)
[2020-06-07] MEDS ORDERED: lisinopril 20mg tablet PO SCH (08:00)
[2020-06-07] MEDS ORDERED: divalproex sod 250mg ER (24-hour) tablet PO SCH (08:00)
--- NOTE | 2020-06-07 08:27 | NUR ---
pt is conversing with his neighbor, no needs at this time.
--- NOTE | 2020-06-07 10:05 | NUR ---
pt is sitting on his bed, conversing with neighbor. pt is cooperative, calm and friendly.
[2020-06-07 11:28] LABS: ALANINE AMINOTRANSFERASE 22 U/L (12-78); ALBUMIN 3.9 G/DL (3.4-5.0); ALBUMIN/GLOBULIN RATIO 1.2 (1.1-1.5); ALKALINE PHOSPHATASE 70 IU/L (46-116); ANION GAP 9 (8-16); ASPARTATE AMINO TRANSFERASE 17 U/L (10-37); BILIRUBIN,TOTAL 0.3 MG/DL (0.1-1.0); BLOOD UREA NITROGEN 7 MG/DL (7-18); BUN/CREATININE RATIO 10.3 (5.4-32.0); CALCIUM 8.5 MG/DL (8.5-10.1); CHLORIDE 97 MMOL/L (99-107); CREATININE 0.68 MG/DL (0.60-1.10); GLUCOSE 105 MG/DL (70-104); POTASSIUM 4.3 MMOL/L (3.5-5.1); SODIUM 132 MMOL/L (135-145); TOTAL PROTEIN 7.1 G/DL (6.4-8.2); eGFR > 90 ML/MIN
--- NOTE | 2020-06-07 13:55 | NUR ---
pt is resting in bed. covid test performed.
--- NOTE | 2020-06-07 15:08 | NUR ---
Lillian ahn in [facility] - 06/07/20 at 1508 by THAD [facility] STOVE TENDER ETA 15 MINUTES TO SARAH
--- NOTE | 2020-06-07 15:08 | NUR ---
[facility] LOCAL TRUCK DRIVER ETA 15 MINUTES TO [facility]
--- NOTE | 2020-06-07 15:19 | NUR ---
NURSE TO NURSE UNIT F [phone]
== END 2020-06-07 15:52 ==
LOC: ER 13:02
DX: F32.9 Major depressive disorder, single episode, unspecified (principal); Z20.822 Contact with and (suspected) exposure to COVID-19; F10.10 Alcohol abuse, uncomplicated; F19.10 Other psychoactive substance abuse, uncomplicated; I10 Essential (primary) hypertension; E11.9 Type 2 diabetes mellitus without complications; M79.7 Fibromyalgia; F15.90 Other stimulant use, unspecified, uncomplicated; F20.9 Schizophrenia, unspecified; Z86.14 Personal history of Methicillin resistant Staphylococcus aureus infection; Z90.49 Acquired absence of other specified parts of digestive tract; Z98.890 Other specified postprocedural states; Z59.0 Homelessness; Z88.8 Allergy status to other drugs, medicaments and biological substances; Z79.899 Other long term (current) drug therapy; X83.8XXA Intentional self-harm by other specified means, initial encounter; Y93.89 Activity, other specified; Y92.89 Other specified places as the place of occurrence of the external cause; Y99.8 Other external cause status; Y90.9 Presence of alcohol in blood, level not specified
CPT/HCPCS: 36415; 80053; 80156; 80305; 80320; 80329; 81001; 84443; 85025; 87426; 93005; 96360; 99285; J7030

== ENCOUNTER 2020-08-27 12:17 | Emergency (ER) | payer MEDICARE, MEDICAID ==
[~2020-08-27] VITALS: Ht 170.2 cm; Wt 81.8 kg
[~2020-08-27 12:17] MED LIST changes: +CARB200T8 PO; -HYDR-4383 PO; -MULT-25 PO
[2020-08-27] MEDS ORDERED: HYDR25TA5 PO (13:21)
[2020-08-27] MEDS ORDERED: LISI20TA28 PO (13:21)
--- NOTE | 2020-08-27 13:32 | NUR ---
PT REQUESTING RN TO CALL THE [facility] FOR RIDE. THEY WILL BE HERE SOON.
[2020-08-27 13:33] VITALS: BP 193/105
== END 2020-08-27 13:36 | disposition home or self-care (01) ==
LOC: ER 12:18
DX: I10 Essential (primary) hypertension (principal); G43.909 Migraine, unspecified, not intractable, without status migrainosus; E11.9 Type 2 diabetes mellitus without complications; F15.90 Other stimulant use, unspecified, uncomplicated; Z86.14 Personal history of Methicillin resistant Staphylococcus aureus infection; Z87.81 Personal history of (healed) traumatic fracture; Z72.89 Other problems related to lifestyle; Z59.0 Homelessness; Z88.8 Allergy status to other drugs, medicaments and biological substances; Z79.899 Other long term (current) drug therapy
CPT/HCPCS: 99283

== ENCOUNTER 2020-09-25 09:08 | Emergency (ER) | payer MEDICARE, MEDICAID ==
[~2020-09-25] VITALS: Ht 170.2 cm; Wt 84.8 kg
[~2020-09-25 09:08] MED LIST changes: +HYDR25TA5 PO; +LISI20TA28 PO
[2020-09-25 10:04] VITALS: BP 172/85
[2020-09-25] MEDS ORDERED: CEPH-585 PO (11:05)
== END 2020-09-25 11:11 | disposition home or self-care (01) ==
LOC: ER 09:08
DX: S92.414A Nondisplaced fracture of proximal phalanx of right great toe, initial encounter for closed fracture (principal); G40.909 Epilepsy, unspecified, not intractable, without status epilepticus; I10 Essential (primary) hypertension; E11.9 Type 2 diabetes mellitus without complications; K72.90 Hepatic failure, unspecified without coma; Z86.14 Personal history of Methicillin resistant Staphylococcus aureus infection; Z87.81 Personal history of (healed) traumatic fracture; Z90.49 Acquired absence of other specified parts of digestive tract; Z59.0 Homelessness; Z88.8 Allergy status to other drugs, medicaments and biological substances; Z79.2 Long term (current) use of antibiotics; Z79.899 Other long term (current) drug therapy; W20.8XXA Other cause of strike by thrown, projected or falling object, initial encounter; Y93.89 Activity, other specified; Y92.89 Other specified places as the place of occurrence of the external cause; Y99.8 Other external cause status
CPT/HCPCS: 73660; 99283

== ENCOUNTER 2020-10-20 19:21 | Emergency (ER) | payer MEDICARE, MEDICAID ==
[~2020-10-20] VITALS: Ht 170.2 cm; Wt 80.7 kg
[~2020-10-20 19:21] MED LIST changes: +CEPH-585 PO; -LISI20TA28 PO; +OLAN7.5T18 PO; -OLAN7.5T9 PO
[2020-10-20] MEDS ORDERED: LORazepam 1 MG tablet PO ONE (20:40)
[2020-10-20] MEDS ORDERED: OLANZapine 2.5MG tablet PO STA (20:40)
--- NOTE | 2020-10-20 20:40 | NUR ---
PT MOVED INTO BED 14, ROOM CLEARED, PT DENIES ANY DISTRESS TO RN, HE IS GLAD TO TAKE RX PROVIDED STATING "I'VE BEEN OUT". GIVEN WARM BLANKETS AND BED ADJUSTED FOR POSITION OF COMFORT.
--- NOTE | 2020-10-20 20:45 | NUR ---
PT NOTIFIED HE WILL NEED TO LEAVE URINE SAMPLE. HE UNDERSTANDS AND IS UNABLE AT THIS TIME, WATER PROVIDED.
[2020-10-20 21:29] LABS: BASOPHILS % (AUTO) 0.4 % (0-1); EOSINOPHILS # (AUTO) 0.1 X10'3 (0-0.9); EOSINOPHILS % (AUTO) 1.2 % (0-6); HEMATOCRIT 37.9 % (42.0-52.0); HEMOGLOBIN 13.2 g/dl (14.0-17.9); LYMPHOCYTES # (AUTO) 0.9 X10'3 (1.1-4.8); LYMPHOCYTES % (AUTO) 11.3 % (21-51); MEAN CORPUSCULAR HEMOGLOBIN 30.7 PG (27.0-31.0); MEAN CORPUSCULAR HGB CONC 34.8 g/dL (33.0-36.5); MEAN CORPUSCULAR VOLUME 88.3 FL (78-98); MEAN PLATELET VOLUME 8.1 FL (7.4-10.4); MONOCYTES # (AUTO) 0.9 X10'3 (0-0.9); MONOCYTES % (AUTO) 10.3 % (2-12); NEUTROPHILS # (AUTO) 6.4 X10'3 (1.8-7.7); NEUTROPHILS % (AUTO) 76.8 % (42-75); PLATELET COUNT 377 X10'3 (140-440); RED BLOOD COUNT 4.29 X10'6 (4.70-6.10); RED CELL DISTRIBUTION WIDTH 14.4 % (11.5-14.5); WHITE BLOOD COUNT 8.3 X10'3 (4.5-11.0)
--- NOTE | 2020-10-20 21:30 | NUR ---
PT APPEARS TO BE SLEEPING, RR EVEN, NON-LABORED, IN NO DISTRESS, IN LINE OF SIGHT OF NURSES STATION.
[2020-10-20 21:44] LABS: ALANINE AMINOTRANSFERASE 27 U/L (12-78); ALBUMIN 4.8 G/DL (3.4-5.0); ALBUMIN/GLOBULIN RATIO 1.3 (1.1-1.5); ALKALINE PHOSPHATASE 105 IU/L (46-116); ANION GAP 16 (8-16); ASPARTATE AMINO TRANSFERASE 20 U/L (10-37); BILIRUBIN,TOTAL 0.7 MG/DL (0.1-1.0); BLOOD UREA NITROGEN 17 MG/DL (7-18); CALCIUM 9.6 MG/DL (8.5-10.1); CHLORIDE 97 MMOL/L (99-107); CREATININE 1.21 MG/DL (0.60-1.10); GLUCOSE 212 MG/DL (70-104); POTASSIUM 3.8 MMOL/L (3.5-5.1); SODIUM 135 MMOL/L (135-145); TOTAL CARBON DIOXIDE 21.7 MMOL/L (24-32); TOTAL PROTEIN 8.6 G/DL (6.4-8.2); eGFR 63 ML/MIN
[2020-10-20 21:56] LABS: ETHANOL < 0.010 GM/DL (0.0-0.010)
[2020-10-20 21:58] LABS: CARBAMAZEPINE (TEGRETOL) 2.6 UG/ML (4.0-12.0)
--- NOTE | 2020-10-20 22:30 | NUR ---
PT SLEEPING ON BACK, RR EVEN, NON-LABORED, IN NO DISTRESS, IN LINE OF SIGHT OF NURSES STATION.
--- NOTE | 2020-10-20 23:27 | NUR ---
PT. SLEEPING L.LATERAL, APPEARS TO BE SLEEPING, IN NO APARENT DISTRESS.
--- NOTE | 2020-10-21 00:35 | NUR ---
PT SLEEPING ON BACK, RR EVEN, NON-LABORED, IN NO DISTRESS, IN LINE OF SIGHT OF NURSES STATION.
--- NOTE | 2020-10-21 01:35 | NUR ---
PT SLEEPING ON SIDE, RR EVEN, NON-LABORED, IN NO DISTRESS, IN LINE OF SIGHT OF NURSES STATION.
--- NOTE | 2020-10-21 02:22 | NUR ---
PATIENT'S PACKET WAS SENT TO [facility].
--- NOTE | 2020-10-21 02:35 | NUR ---
Pt. sleeping, rr even non-labored, appears to be in no distress. In line of sight of Doctors station.
--- NOTE | 2020-10-21 03:35 | NUR ---
Pt sleeping, RR even, non-labored, appears to be in no distress. Sleeping on his back, in line of sight of nurses station.
--- NOTE | 2020-10-21 04:30 | NUR ---
Pt. sleeping supine, rr even non-labored. Does not appear to be in any distress.
--- NOTE | 2020-10-21 09:19 | NUR ---
GRAEME AT BEDSIDE ENCOURAGING PT TO URINATE .
--- NOTE | 2020-10-21 09:27 | NUR ---
URINE OBTAINED BY [employer].WILL CONT TO MONITOR.
[2020-10-21 09:32] LABS: CLARITY,URINE CLOUDY (Clear); COLOR,URINE AMBER (Yellow); GLUCOSE, URINE 500 mg/dl (Neg); KETONES,URINE TRACE mg/dl (Neg); LEUKOCYTE ESTERASE ,URINE NEGATIVE (Neg); NITRITES, URINE NEGATIVE (Neg); OCCULT BLOOD,URINE MODERATE (Neg); PH,URINE 5.5 (4.8-8.0); PROTEIN,URINE 30 mg/dl (Neg)
[2020-10-21 09:42] LABS: UA COLLECTION TYPE CLN CATCH MIDSTREAM
[2020-10-21 09:43] LABS: HYALINE CASTS >30 /LPF (NEGATIVE); MUCUS STRANDS MANY /LPF (Neg); SPERM MANY /HPF (NEGATIVE)
[2020-10-21 09:44] LABS: BACTERIA,URINE 1+ /HPF (Neg); RBC,URINE 0-2 /HPF (0-2); SQUAMOUS EPITHELIAL CELL,UR FEW /LPF (FEW); WBC,URINE 0-4 /HPF (0-4)
[2020-10-21 09:53] LABS: URINE AMPHETAMINE SCREEN POSITIVE (Neg); URINE BARBITUATE SCREEN NEGATIVE (Neg); URINE BENZODIAZEPINES SCREEN NEGATIVE (Neg); URINE CANNABINOID SCREEN NEGATIVE (Neg); URINE COCAINE SCREEN NEGATIVE (Neg); URINE METHADONE SCREEN NEGATIVE (Neg); URINE OPIATE SCREEN NEGATIVE (Neg); URINE PHENCYCLIDINE SCREEN NEGATIVE (Neg)
--- NOTE | 2020-10-21 16:15 | NUR ---
Rec patient from main ER and oriented to overflow area. Attempted interview, patient states he is confused and "still not sure what is real and what is not".
--- NOTE | 2020-10-21 18:57 | NUR ---
Patient lying in bed after dinner meal. Denies needs.
--- NOTE | 2020-10-21 20:48 | NUR ---
Patient asleep on his right side. RR even and unlabored. No s/s of distress.
--- NOTE | 2020-10-21 22:01 | NUR ---
Patient continues to sleep. rr even/unlabored. No s/s of distress.
--- NOTE | 2020-10-22 01:04 | NUR ---
packet faxed to [facility]
--- NOTE | 2020-10-22 01:17 | NUR ---
Patient continues to sleep. rr 18 and unlabored. No s/s of distress.
--- NOTE | 2020-10-22 05:15 | NUR ---
Patient is sleeping in supine position. Respirations even and unlabored.
--- NOTE | 2020-10-22 06:39 | NUR ---
Patient sleeping supine. No distress observed. Continue to monitor.
--- NOTE | 2020-10-22 08:10 | NUR ---
Patient eating breakfast. No distress observed. Continue to monitor.
--- NOTE | 2020-10-22 10:04 | NUR ---
Patient sleeping. No distress observed. Continue to monitor.
--- NOTE | 2020-10-22 12:01 | NUR ---
Patient is up and adjusting his bed. No distress observed. Continue to monitor.
--- NOTE | 2020-10-22 13:05 | NUR ---
Patient eating lunch. No distress observed. Continue to monitor.
[2020-10-22] MEDS ORDERED: LISI20TA28 PO (13:42)
[2020-10-22] MEDS ORDERED: LEVE500T PO (13:42)
--- NOTE | 2020-10-22 14:58 | NUR ---
Patient came up to the nurses station and requesting something for sleep. RN explains to patient we don't give medication for sleep during the day. Patient verbalized understanding. All questions were answered. No distress Observed. Continue to monitor.
--- NOTE | 2020-10-22 17:17 | NUR ---
Patient given yogurt. No distress observed. Continue to monitor.
--- NOTE | 2020-10-22 19:00 | NUR ---
pt sitting on edge of bed eating dinner. no requests or concerns at this time
[2020-10-22] MEDS: metFORMIN 500mg tablet PO SCH (20:18)
[2020-10-22] MEDS: levetiracetam 250mg tablet PO SCH (20:18)
[2020-10-22] MEDS: carBAMazepine 100mg chewable tablet PO SCH (20:18)
[2020-10-22] MEDS ORDERED: OLANZapine 2.5MG tablet PO SCH (21:00)
--- NOTE | 2020-10-22 22:00 | NUR ---
During 1:1 bedside assessment, pt does not directly answer if he is suicidal, and instead states "I dont know where I am with that." Pt is aox4 but is "unsure if his is " per his report. he endorses auditory hallucinations of multiple voices that "tell him weird things" including his is . Denies any command auditory hallucinations to hurt himself or others. Reports visual hallucintations of "his friend." hx of schizophrenia. reports his day was "crappy" since he feels that the voices are "tricking him." appears disheveled in green scrubs with food baez on them and unbrushed hair. offered new scrubs-pt refused. pt is pleasant on the unit and social with select peers. is able to verbalized needs. anxious affect. pt reports normal bowel movement and appetite
--- NOTE | 2020-10-23 00:25 | NUR ---
pt appears to be sleeping
--- NOTE | 2020-10-23 02:44 | NUR ---
pt appears to be sleeping
--- NOTE | 2020-10-23 04:43 | NUR ---
pt appears to be sleeping
[2020-10-23 05:47] VITALS: BP_DIAS 76
[2020-10-23 08:00] VITALS: BP_SYST 119
[2020-10-23] MEDS ORDERED: lisinopril 20mg tablet PO SCH (08:00)
[2020-10-23] MEDS: levetiracetam 250mg tablet PO SCH (08:00)
[2020-10-23] MEDS: metFORMIN 500mg tablet PO SCH (08:00)
[2020-10-23] MEDS ORDERED: divalproex sodium 500mg tablet.DR PO SCH (08:00)
[2020-10-23] MEDS: carBAMazepine 100mg chewable tablet PO SCH (10:27)
--- NOTE | 2020-10-23 13:57 | NUR ---
MERISSA FROM [facility] [phone] CALLED AND REPORT GIVEN. ADDRESS: [id number] [place] [address]. THEY HAVE ACCEPTED PT. RECEIVING DOCTOR: Noemi ALCALA PT WILL BE GOING TO UNIT 2. EGG BREAKING MACHINE OPERATOR TIME 183 TODAY.
== END 2020-10-23 18:13 ==
LOC: ER 19:22
DX: F23 Brief psychotic disorder (principal); Z20.822 Contact with and (suspected) exposure to COVID-19; F15.10 Other stimulant abuse, uncomplicated; Z59.0 Homelessness; G40.909 Epilepsy, unspecified, not intractable, without status epilepticus; I10 Essential (primary) hypertension; K72.90 Hepatic failure, unspecified without coma; E11.9 Type 2 diabetes mellitus without complications; F32.9 Major depressive disorder, single episode, unspecified; Z86.14 Personal history of Methicillin resistant Staphylococcus aureus infection; Z90.49 Acquired absence of other specified parts of digestive tract; Z72.89 Other problems related to lifestyle; Z88.8 Allergy status to other drugs, medicaments and biological substances; Z79.2 Long term (current) use of antibiotics; Z79.899 Other long term (current) drug therapy
CPT/HCPCS: 36415; 80053; 80156; 80305; 80320; 81001; 82948; 84443; 85025; 87635; 99285; C9803

== ENCOUNTER 2021-06-24 02:19 | Emergency (ER) | payer MEDICARE, MEDICAID ==
[~2021-06-24] VITALS: Ht 170.2 cm; Wt 81.8 kg
[~2021-06-24 02:19] MED LIST changes: -CEPH-585 PO; -HYDR25TA5 PO; +LACT1CAP26 PO; -LISI1TAB51 PO; +LISI20TA28 PO; -LUMA42CA PO; +MULT-1085 PO; +PALI6TAB6 PO; +THIA50TA10 PO
[2021-06-24 03:08] LABS: BASOPHILS % (AUTO) 0.8 % (0-1); EOSINOPHILS # (AUTO) 0.4 X10'3 (0-0.9); EOSINOPHILS % (AUTO) 8.3 % (0-6); HEMATOCRIT 39.7 % (42.0-52.0); HEMOGLOBIN 13.9 g/dl (14.0-17.9); LYMPHOCYTES # (AUTO) 0.9 X10'3 (1.1-4.8); LYMPHOCYTES % (AUTO) 16.7 % (21-51); MEAN CORPUSCULAR HEMOGLOBIN 30.8 PG (27.0-31.0); MEAN CORPUSCULAR HGB CONC 35.1 g/dL (33.0-36.5); MEAN CORPUSCULAR VOLUME 87.7 FL (78-98); MEAN PLATELET VOLUME 7.9 FL (7.4-10.4); MONOCYTES # (AUTO) 0.7 X10'3 (0-0.9); MONOCYTES % (AUTO) 13.3 % (2-12); NEUTROPHILS # (AUTO) 3.2 X10'3 (1.8-7.7); NEUTROPHILS % (AUTO) 60.9 % (42-75); PLATELET COUNT 202 X10'3 (140-440); RED BLOOD COUNT 4.52 X10'6 (4.70-6.10); RED CELL DISTRIBUTION WIDTH 13.6 % (11.5-14.5); WHITE BLOOD COUNT 5.3 X10'3 (4.5-11.0)
[2021-06-24 03:23] LABS: ALANINE AMINOTRANSFERASE 17 U/L (12-78); ALBUMIN 4.3 G/DL (3.4-5.0); ALBUMIN/GLOBULIN RATIO 1.2 (1.1-1.5); ALKALINE PHOSPHATASE 81 IU/L (46-116); ANION GAP 13 (8-16); ASPARTATE AMINO TRANSFERASE 12 U/L (10-37); BILIRUBIN,TOTAL 0.5 MG/DL (0.1-1.0); BLOOD UREA NITROGEN 10 MG/DL (7-18); BUN/CREATININE RATIO 13.7 (5.4-32.0); CALCIUM 8.7 MG/DL (8.5-10.1); CHLORIDE 95 MMOL/L (99-107); CREATININE 0.73 MG/DL (0.60-1.10); ETHANOL < 0.010 GM/DL (0.0-0.010); GLUCOSE 231 MG/DL (70-104); POTASSIUM 3.6 MMOL/L (3.5-5.1); SODIUM 134 MMOL/L (135-145); TOTAL CARBON DIOXIDE 26.4 MMOL/L (24-32); TOTAL PROTEIN 7.9 G/DL (6.4-8.2); eGFR > 90 ML/MIN
--- NOTE | 2021-06-24 04:25 | NUR ---
pt arrived in EDOF, states he is here because he is suicidal. He states he unable to provide a urine specimen at this time and will try again later. Pt got in bed and appears to be resting comfortably
--- NOTE | 2021-06-24 06:59 | NUR ---
Pt appears to be sleeping, no restless movements. RR even and unlabored.
[2021-06-24] MEDS ORDERED: LEVE10006 PO (07:11)
[2021-06-24] MEDS ORDERED: OLAN20TA34 PO (07:11)
[2021-06-24] MEDS ORDERED: lisinopril 20mg tablet PO SCH (08:00)
[2021-06-24] MEDS ORDERED: divalproex sodium 500mg tablet.DR PO SCH (08:00)
[2021-06-24] MEDS ORDERED: carBAMazepine 100mg chewable tablet PO SCH (08:00)
[2021-06-24] MEDS ORDERED: levetiracetam 250mg tablet PO SCH (08:00)
[2021-06-24] MEDS ORDERED: metFORMIN 500mg tablet PO SCH (08:00)
[2021-06-24 08:28] VITALS: BP_DIAS 80
[2021-06-24 08:29] VITALS: BP_SYST 132
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
[2021-06-24 09:44] LABS: URINE AMPHETAMINE SCREEN POSITIVE (Neg); URINE BARBITUATE SCREEN NEGATIVE (Neg); URINE BENZODIAZEPINES SCREEN NEGATIVE (Neg); URINE CANNABINOID SCREEN NEGATIVE (Neg); URINE COCAINE SCREEN NEGATIVE (Neg); URINE METHADONE SCREEN NEGATIVE (Neg); URINE OPIATE SCREEN NEGATIVE (Neg); URINE PHENCYCLIDINE SCREEN NEGATIVE (Neg)
[2021-06-24 09:48] LABS: CLARITY,URINE SLIGHTLY CLOUDY (Clear); COLOR,URINE YELLOW (Yellow); GLUCOSE, URINE 100 mg/dl (Neg); KETONES,URINE NEGATIVE (Neg); LEUKOCYTE ESTERASE ,URINE NEGATIVE (Neg); NITRITES, URINE NEGATIVE (Neg); OCCULT BLOOD,URINE NEGATIVE (Neg); PROTEIN,URINE NEGATIVE (Neg); UROBILINOGEN,URINE 0.2 E.U/dL (0.2-1.0)
[2021-06-24 09:50] LABS: UA COLLECTION TYPE CLN CATCH MIDSTREAM
[2021-06-24 09:55] LABS: BACTERIA,URINE FEW /HPF (Neg); RBC,URINE 0-2 /HPF (0-2); WBC,URINE 0-4 /HPF (0-4)
[2021-06-24 09:56] LABS: MUCUS STRANDS MODERATE /LPF (Neg); SQUAMOUS EPITHELIAL CELL,UR FEW /LPF (FEW)
--- NOTE | 2021-06-24 10:03 | NUR ---
Patient's packet faxed to [facility].
--- NOTE | 2021-06-24 11:12 | NUR ---
Pt sleeping comfortably, respirations even and unlabored.
--- NOTE | 2021-06-24 11:23 | NUR ---
Sky with [facility] atempted to evaluate the patient, however patient is sleeping heavily. Sky will let the patient sleep until lunch, then assess the patient.
--- NOTE | 2021-06-24 13:04 | NUR ---
Patient continues to rest comfortably. Pt ate 100% of his lunch.
--- NOTE | 2021-06-24 13:30 | NUR ---
Sky with [facility] is at bedside evaluating the patient.
--- NOTE | 2021-06-24 15:02 | NUR ---
Pt resting comfortably, no distress noted. RR even and unlabored.
--- NOTE | 2021-06-24 16:15 | NUR ---
Pt up to bathrooom. Steady gait.
--- NOTE | 2021-06-24 17:00 | NUR ---
Pt resting comfortably, respirations even and unlabored.
--- NOTE | 2021-06-24 18:17 | NUR ---
DISCHARGE NOTE: Patient was discharged from unit at 1814. Pt left with all personal belongings. Pt was A&Ox4. Pt is well established with [facility]. Senior Director Of Strategy verbally reinforced to patient the importance to follow up with provider. Pt was encouraged to stop using methamphetamine. Pt verbalized understanding. Addendum: 06/24/21 at 1828 by ASHA I CALLED FOR TRANSPORT HOME 2064 KRISTEN ACUNA
[2021-06-24] MEDS ORDERED: olanzapine 10mg tablet PO SCH (21:00)
== END 2021-06-24 18:15 ==
LOC: ER 02:20
DX: R45.851 Suicidal ideations (principal); Z20.822 Contact with and (suspected) exposure to COVID-19; E11.9 Type 2 diabetes mellitus without complications; I10 Essential (primary) hypertension; F32.A Depression, unspecified; K72.90 Hepatic failure, unspecified without coma; F29 Unspecified psychosis not due to a substance or known physiological condition; F20.9 Schizophrenia, unspecified; F15.90 Other stimulant use, unspecified, uncomplicated; Z87.19 Personal history of other diseases of the digestive system; Z87.81 Personal history of (healed) traumatic fracture; Z86.14 Personal history of Methicillin resistant Staphylococcus aureus infection; Z90.49 Acquired absence of other specified parts of digestive tract; Z72.89 Other problems related to lifestyle; Z59.00 Homelessness unspecified; Z88.8 Allergy status to other drugs, medicaments and biological substances; Z79.899 Other long term (current) drug therapy
CPT/HCPCS: 36415; 80053; 80305; 80320; 81001; 82948; 84443; 85025; 87635; 99285; C9803

== ENCOUNTER 2021-09-09 19:12 | Emergency (ER) | payer MEDICARE, MEDICAID ==
[~2021-09-09] VITALS: Ht 175.3 cm; Wt 81.0 kg
[~2021-09-09 19:12] MED LIST changes: -LACT1CAP26 PO; +LEVE10006 PO; -LEVE500T PO; -MULT-1085 PO; +OLAN20TA34 PO; -OLAN7.5T18 PO; -PALI6TAB6 PO; -THIA50TA10 PO
[2021-09-09] MEDS ORDERED: normal saline 1000ML IV soln IVB ONE ×2 (19:55)
[2021-09-09 20:00] LABS: BASOPHILS % (AUTO) 0.7 % (0-1); EOSINOPHILS # (AUTO) 0.2 X10'3 (0-0.9); EOSINOPHILS % (AUTO) 4.6 % (0-6); HEMATOCRIT 35.4 % (42.0-52.0); HEMOGLOBIN 12.7 g/dl (14.0-17.9); LYMPHOCYTES # (AUTO) 1.3 X10'3 (1.1-4.8); LYMPHOCYTES % (AUTO) 24.4 % (21-51); MEAN CORPUSCULAR HEMOGLOBIN 31.6 PG (27.0-31.0); MEAN CORPUSCULAR HGB CONC 35.8 g/dL (33.0-36.5); MEAN CORPUSCULAR VOLUME 88.4 FL (78-98); MONOCYTES # (AUTO) 0.4 X10'3 (0-0.9); MONOCYTES % (AUTO) 7.3 % (2-12); NEUTROPHILS # (AUTO) 3.3 X10'3 (1.8-7.7); PLATELET COUNT 258 X10'3 (140-440); RED BLOOD COUNT 4.01 X10'6 (4.70-6.10); WHITE BLOOD COUNT 5.2 X10'3 (4.5-11.0)
[2021-09-09 20:12] LABS: ALANINE AMINOTRANSFERASE 13 U/L (12-78); ALBUMIN/GLOBULIN RATIO 1.2 (1.1-1.5); ALKALINE PHOSPHATASE 69 IU/L (46-116); ANION GAP 13 (8-16); ASPARTATE AMINO TRANSFERASE 13 U/L (10-37); BILIRUBIN,TOTAL 0.2 MG/DL (0.1-1.0); BLOOD UREA NITROGEN 3 MG/DL (7-18); BUN/CREATININE RATIO 4.5 (5.4-32.0); CALCIUM 8.5 MG/DL (8.5-10.1); CHLORIDE 94 MMOL/L (99-107); CREATININE 0.66 MG/DL (0.60-1.10); ETHANOL 0.246 GM/DL (0.0-0.010); GLUCOSE 182 MG/DL (70-104); POTASSIUM 3.8 MMOL/L (3.5-5.1); SODIUM 130 MMOL/L (135-145); TOTAL CARBON DIOXIDE 23.1 MMOL/L (24-32); TOTAL PROTEIN 7.3 G/DL (6.4-8.2); eGFR > 90 ML/MIN
--- NOTE | 2021-09-09 23:26 | NUR ---
CALLED [facility] FOR PT @[phone]
[2021-09-10 00:07] VITALS: BP 159/82
== END 2021-09-10 00:09 | disposition home or self-care (01) ==
LOC: ER 19:12
DX: S50.312A Abrasion of left elbow, initial encounter (principal); F10.929 Alcohol use, unspecified with intoxication, unspecified; I10 Essential (primary) hypertension; E11.9 Type 2 diabetes mellitus without complications; F32.A Depression, unspecified; F20.9 Schizophrenia, unspecified; Z59.00 Homelessness unspecified; Z88.8 Allergy status to other drugs, medicaments and biological substances; Z79.899 Other long term (current) drug therapy; W19.XXXA Unspecified fall, initial encounter; Y93.89 Activity, other specified; Y92.89 Other specified places as the place of occurrence of the external cause; Y99.8 Other external cause status; Y90.9 Presence of alcohol in blood, level not specified
CPT/HCPCS: 36415; 80053; 80320; 82948; 85025; 96360; 96361; 99284; J7030; J7040

== ENCOUNTER 2021-12-05 15:07 | Emergency (ER) | payer MEDICARE, MEDICAID ==
[~2021-12-05] VITALS: Ht 170.2 cm; Wt 81.8 kg
[2021-12-06] MEDS ORDERED: OLANZapine 2.5MG tablet PO SCH (00:10)
[2021-12-06] MEDS ORDERED: levetiracetam 250mg tablet PO ONE (00:10)
[2021-12-06] MEDS ORDERED: carBAMazepine 100mg chewable tablet PO ONE ×2 (00:10→00:29)
[2021-12-06] MEDS ORDERED: carBAMazepine 100mg chewable tablet PO SCH (00:29)
[2021-12-06 02:39] LABS: ALANINE AMINOTRANSFERASE 32 U/L (12-78); ALBUMIN 4.3 G/DL (3.4-5.0); ALBUMIN/GLOBULIN RATIO 1.4 (1.1-1.5); ALKALINE PHOSPHATASE 76 IU/L (46-116); ANION GAP 14 (8-16); ASPARTATE AMINO TRANSFERASE 37 U/L (10-37); BILIRUBIN,TOTAL 0.7 MG/DL (0.1-1.0); BLOOD UREA NITROGEN 15 MG/DL (7-18); BUN/CREATININE RATIO 21.7 (5.4-32.0); CALCIUM 9.1 MG/DL (8.5-10.1); CHLORIDE 96 MMOL/L (99-107); CREATININE 0.69 MG/DL (0.60-1.10); ETHANOL < 0.010 GM/DL (0.0-0.010); GLUCOSE 128 MG/DL (70-104); POTASSIUM 3.6 MMOL/L (3.5-5.1); SODIUM 134 MMOL/L (135-145); TOTAL PROTEIN 7.4 G/DL (6.4-8.2); eGFR > 90 ML/MIN
[2021-12-06 02:46] LABS: ACETAMINOPHEN < 2.0 UG/ML (10-30); VALPROATE 13.2 UG/ML (50-100)
[2021-12-06 02:53] LABS: BASOPHILS % (AUTO) 0.6 % (0-1); EOSINOPHILS # (AUTO) 0.2 X10'3 (0-0.9); EOSINOPHILS % (AUTO) 3.2 % (0-6); HEMATOCRIT 34.2 % (42.0-52.0); HEMOGLOBIN 12.2 g/dl (14.0-17.9); LYMPHOCYTES # (AUTO) 1.3 X10'3 (1.1-4.8); LYMPHOCYTES % (AUTO) 26.9 % (21-51); MEAN CORPUSCULAR HEMOGLOBIN 32.6 PG (27.0-31.0); MEAN CORPUSCULAR HGB CONC 35.7 g/dL (33.0-36.5); MEAN CORPUSCULAR VOLUME 91.5 FL (78-98); MEAN PLATELET VOLUME 7.7 FL (7.4-10.4); MONOCYTES # (AUTO) 0.7 X10'3 (0-0.9); MONOCYTES % (AUTO) 14.7 % (2-12); NEUTROPHILS # (AUTO) 2.6 X10'3 (1.8-7.7); NEUTROPHILS % (AUTO) 54.6 % (42-75); PLATELET COUNT 227 X10'3 (140-440); RED BLOOD COUNT 3.74 X10'6 (4.70-6.10); RED CELL DISTRIBUTION WIDTH 14.1 % (11.5-14.5); WHITE BLOOD COUNT 4.8 X10'3 (4.5-11.0)
--- NOTE | 2021-12-06 07:03 | NUR ---
Pt moved from ER main to ER overflow bed 22 accompanied by ER storage battery charger.
[2021-12-06] MEDS ORDERED: IBUP-1984 PO (07:19)
[2021-12-06] MEDS ORDERED: PROP20TA6 PO (07:19)
[2021-12-06] MEDS ORDERED: CARB200T PO (07:25)
[2021-12-06] MEDS ORDERED: OLAN20TA3 PO (07:25)
[2021-12-06] MEDS ORDERED: ibuprofen tablet 400 MG TABLET PO PRN (08:05)
[2021-12-06] MEDS ORDERED: metFORMIN 500mg tablet PO ONE (08:30)
--- NOTE | 2021-12-06 09:00 | NUR ---
Pt is awake eating his breakfast.
[2021-12-06] MEDS: levetiracetam 250mg tablet PO SCH ×2 (09:08→20:12)
[2021-12-06] MEDS: divalproex sodium 500mg tablet.DR PO SCH (09:08)
[2021-12-06] MEDS: lisinopril 20mg tablet PO SCH (09:08)
[2021-12-06] MEDS: propranolol 10mg tablet PO SCH ×2 (09:09→20:12)
[2021-12-06] MEDS: carBAMazepine 100mg chewable tablet PO SCH ×2 (09:33→20:13)
--- NOTE | 2021-12-06 11:00 | NUR ---
Pt endorses passive SI with no plan, pt denies AH. Pt has still not provided a urine sample. He has been given a urinal and encouraged multiple times to provide one.
--- NOTE | 2021-12-06 12:30 | NUR ---
Urine collected and sent. Urine is tea colored.
[2021-12-06 12:54] LABS: URINE AMPHETAMINE SCREEN POSITIVE (Neg); URINE BARBITUATE SCREEN NEGATIVE (Neg); URINE BENZODIAZEPINES SCREEN NEGATIVE (Neg); URINE CANNABINOID SCREEN NEGATIVE (Neg); URINE COCAINE SCREEN NEGATIVE (Neg); URINE METHADONE SCREEN NEGATIVE (Neg); URINE OPIATE SCREEN NEGATIVE (Neg); URINE PHENCYCLIDINE SCREEN NEGATIVE (Neg)
--- NOTE | 2021-12-06 14:08 | NUR ---
Pt is lying in bed on his right side, appears to be sleeping.
[2021-12-06 14:25] LABS: CLARITY,URINE CLEAR (Clear); COLOR,URINE YELLOW (Yellow); GLUCOSE, URINE NEGATIVE (Neg); KETONES,URINE 40 mg/dl (Neg); LEUKOCYTE ESTERASE ,URINE NEGATIVE (Neg); NITRITES, URINE NEGATIVE (Neg); OCCULT BLOOD,URINE NEGATIVE (Neg); PROTEIN,URINE TRACE mg/dl (Neg)
[2021-12-06 14:30] LABS: BACTERIA,URINE NONE SEEN /HPF (Neg); RBC,URINE NONE SEEN /HPF (0-2); UA COLLECTION TYPE CLN CATCH MIDSTREAM; WBC,URINE NONE SEEN /HPF (0-4)
[2021-12-06 14:31] LABS: MUCUS STRANDS FEW /LPF (Neg); SQUAMOUS EPITHELIAL CELL,UR NONE SEEN /LPF (FEW)
--- NOTE | 2021-12-06 16:08 | NUR ---
pt is lying in bed, appears to be sleeping.
--- NOTE | 2021-12-06 19:07 | NUR ---
The patient has been resting on his bed after eating 100% of his dinner. He was friendly and pleasant on approach for the evening assessment. He was a poor historian. Admits to suicidal thoughts prior to coming to the ER. He has not been taking his medications consistantly at home. He admits to ETOH and methamphetamine use.
[2021-12-06] MEDS: metFORMIN 500mg tablet PO SCH (20:12)
--- NOTE | 2021-12-06 20:24 | NUR ---
Nurse to nurse with [facility]
[2021-12-06] MEDS ORDERED: olanzapine 10mg tablet PO SCH (21:00)
--- NOTE | 2021-12-06 21:04 | NUR ---
The patient has been accepted at [facility] at [address]. They are requiring a new covid test in the am
--- NOTE | 2021-12-06 21:14 | NUR ---
The patient appears to be sleeping
--- NOTE | 2021-12-06 23:48 | NUR ---
The patient appears to be sleeping
--- NOTE | 2021-12-07 01:03 | NUR ---
The patient appears to be sleeping
--- NOTE | 2021-12-07 03:55 | NUR ---
The patient appears to be sleeping
[2021-12-07 04:23] VITALS: BP_DIAS 74
--- NOTE | 2021-12-07 06:49 | NUR ---
The patient appears to be sleeping
--- NOTE | 2021-12-07 08:05 | NUR ---
Spoke to [facility], they are still trying to organize a driver recruiter to transport pt. to [facility] facility
[2021-12-07] MEDS: metFORMIN 500mg tablet PO SCH (08:07)
[2021-12-07] MEDS: divalproex sodium 500mg tablet.DR PO SCH (08:07)
[2021-12-07] MEDS: levetiracetam 250mg tablet PO SCH (08:07)
[2021-12-07 08:08] VITALS: BP_SYST 136
[2021-12-07] MEDS: propranolol 10mg tablet PO SCH (08:08)
[2021-12-07] MEDS: carBAMazepine 100mg chewable tablet PO SCH (08:08)
[2021-12-07] MEDS: lisinopril 20mg tablet PO SCH (08:08)
--- NOTE | 2021-12-07 09:38 | NUR ---
Nurse to nurse with [facility] [phone]
--- NOTE | 2021-12-07 09:58 | NUR ---
The patient appears to be sleeping
--- NOTE | 2021-12-07 10:51 | NUR ---
The patient appears to be sleeping
== END 2021-12-07 12:16 ==
LOC: ER 15:09
DX: R45.851 Suicidal ideations (principal); Z20.822 Contact with and (suspected) exposure to COVID-19; I11.9 Hypertensive heart disease without heart failure; E11.9 Type 2 diabetes mellitus without complications; F20.9 Schizophrenia, unspecified; F31.9 Bipolar disorder, unspecified; F15.10 Other stimulant abuse, uncomplicated; Z88.8 Allergy status to other drugs, medicaments and biological substances; Z79.899 Other long term (current) drug therapy
CPT/HCPCS: 36415; 80053; 80164; 80305; 80320; 80329; 81001; 85025; 87635; 87811; 99285; C9803

== ENCOUNTER 2022-03-31 23:05 | Emergency (ER) | payer MEDICARE, MEDICAID ==
[~2022-03-31] VITALS: Ht 170.2 cm; Wt 66.7 kg
[~2022-03-31 23:05] MED LIST changes: +CARB200T PO; -CARB200T8 PO; +IBUP-1984 PO; +OLAN20TA3 PO; -OLAN20TA34 PO; +PROP20TA6 PO
--- NOTE | 2022-04-01 07:17 | NUR ---
PT IS WAITING FOR ER BED, BP HIGH, EKG ORDERED, PT DENIES HEADACHE, CHEST PAIN/DISCOMFORT, DIZZINESS, BLURRED VISION, PT SAID HE HAS NOT TAKEN HIS BP MED FOR ONE MONTH "I RAN OUT" BUT HAS BEEN COMPLIANT WITH TAKING SEIZURE MED. PT AMB WITH STEADY GAIT TO RESTROOM FOR UA, I ATTEMPTED TO DRAW BLOOD, ANOTHER STAFF TO ATTEMPT. PT IS CALM AND COOPERATIVE.
[2022-04-01 08:00] LABS: BASOPHILS % (AUTO) 0.3 % (0-1); EOSINOPHILS # (AUTO) 0.1 X10'3 (0-0.9); EOSINOPHILS % (AUTO) 1.2 % (0-6); HEMATOCRIT 43.3 % (42.0-52.0); HEMOGLOBIN 15.1 g/dl (14.0-17.9); LYMPHOCYTES # (AUTO) 0.8 X10'3 (1.1-4.8); MEAN CORPUSCULAR HEMOGLOBIN 31.1 PG (27.0-31.0); MEAN CORPUSCULAR HGB CONC 34.8 g/dL (33.0-36.5); MEAN CORPUSCULAR VOLUME 89.4 FL (78-98); MEAN PLATELET VOLUME 7.7 FL (7.4-10.4); MONOCYTES # (AUTO) 0.9 X10'3 (0-0.9); MONOCYTES % (AUTO) 9.6 % (2-12); NEUTROPHILS # (AUTO) 7.3 X10'3 (1.8-7.7); NEUTROPHILS % (AUTO) 79.9 % (42-75); PLATELET COUNT 279 X10'3 (140-440); RED BLOOD COUNT 4.84 X10'6 (4.70-6.10); RED CELL DISTRIBUTION WIDTH 14.3 % (11.5-14.5); WHITE BLOOD COUNT 9.1 X10'3 (4.5-11.0)
[2022-04-01 08:28] LABS: URINE AMPHETAMINE SCREEN POSITIVE (Neg); URINE BARBITUATE SCREEN NEGATIVE (Neg); URINE BENZODIAZEPINES SCREEN NEGATIVE (Neg); URINE CANNABINOID SCREEN NEGATIVE (Neg); URINE COCAINE SCREEN NEGATIVE (Neg); URINE METHADONE SCREEN NEGATIVE (Neg); URINE OPIATE SCREEN NEGATIVE (Neg); URINE PHENCYCLIDINE SCREEN NEGATIVE (Neg)
--- NOTE | 2022-04-01 08:29 | NUR ---
Pt transported from the waiting room to [facility]
--- NOTE | 2022-04-01 08:30 | NUR ---
Pt requesting to be called Jenny instead of Ernesto
[2022-04-01 08:32] LABS: ALANINE AMINOTRANSFERASE 20 U/L (12-78); ALBUMIN 4.9 G/DL (3.4-5.0); ALBUMIN/GLOBULIN RATIO 1.4 (1.1-1.5); ALKALINE PHOSPHATASE 92 IU/L (46-116); ANION GAP 8 (8-16); ASPARTATE AMINO TRANSFERASE 28 U/L (10-37); BILIRUBIN,TOTAL 0.4 MG/DL (0.1-1.0); BLOOD UREA NITROGEN 3 MG/DL (7-18); BUN/CREATININE RATIO 3.9 (5.4-32.0); CHLORIDE 90 MMOL/L (99-107); CREATININE 0.76 MG/DL (0.60-1.10); ETHANOL < 0.010 GM/DL (0.0-0.010); GLUCOSE 200 MG/DL (70-104); POTASSIUM 3.1 MMOL/L (3.5-5.1); SODIUM 126 MMOL/L (135-145); TOTAL CARBON DIOXIDE 28.1 MMOL/L (24-32); TOTAL PROTEIN 8.5 G/DL (6.4-8.2); eGFR > 90 ML/MIN
[2022-04-01 08:41] LABS: CALCIUM 9.3 MG/DL (8.5-10.1)
[2022-04-01] MEDS ORDERED: POTASSIUM BICARB 20meq eff tab 20 MEQ TABLET.EFF PO ONE (09:15)
--- NOTE | 2022-04-01 09:29 | NUR ---
packet sent to [facility]
--- NOTE | 2022-04-01 11:00 | NUR ---
Pt resting in bed; s/p eating breakfast and speaking w/ [facility]
--- NOTE | 2022-04-01 14:15 | NUR ---
Nurse to nurse done wCurtis Espinoza @ [place].
[2022-04-01 14:16] VITALS: BP_DIAS 98
[2022-04-01] MEDS ORDERED: propranolol 10mg tablet PO ONE (14:20)
[2022-04-01] MEDS ORDERED: lisinopril 10 MG tablet PO ONE (14:20)
[2022-04-01] MEDS ORDERED: levetiracetam 250mg tablet PO ONE (14:20)
[2022-04-01] MEDS ORDERED: carBAMazepine 100mg chewable tablet PO ONE (14:20)
[2022-04-01 14:43] VITALS: BP_SYST 187
--- NOTE | 2022-04-01 16:27 | NUR ---
Pt picked up by [facility] backhaul driver, and Pt being taken to [place]. Belongings returned to backhaul driver along with original 5150.
== END 2022-04-01 16:36 ==
LOC: ER 23:06
DX: R45.851 Suicidal ideations (principal); Z20.822 Contact with and (suspected) exposure to COVID-19; I10 Essential (primary) hypertension; E11.9 Type 2 diabetes mellitus without complications; F15.20 Other stimulant dependence, uncomplicated; Z88.8 Allergy status to other drugs, medicaments and biological substances; Z59.00 Homelessness unspecified
CPT/HCPCS: 36415; 80053; 80305; 80320; 85025; 87811; 93005; 99285

== ENCOUNTER 2022-07-02 19:23 | Inpatient (IN) | payer MEDICARE, MEDICAID ==
[~2022-07-02] VITALS: Ht 182.9 cm; Wt 84.1 kg
[2022-07-02 21:33] LABS: ALANINE AMINOTRANSFERASE 19 U/L (12-78); ALBUMIN 3.9 G/DL (3.4-5.0); ALBUMIN/GLOBULIN RATIO 1.1 (1.1-1.5); ALKALINE PHOSPHATASE 91 IU/L (46-116); ANION GAP 8 (8-16); ASPARTATE AMINO TRANSFERASE 14 U/L (10-37); BILIRUBIN,TOTAL 0.3 MG/DL (0.1-1.0); BLOOD UREA NITROGEN 7 MG/DL (7-18); BUN/CREATININE RATIO 8.9 (10.0-20.0); CALCIUM 9.2 MG/DL (8.5-10.1); CHLORIDE 95 MMOL/L (99-107); CREATININE 0.79 MG/DL (0.60-1.10); ETHANOL < 0.010 GM/DL (0.0-0.010); GLUCOSE 214 MG/DL (70-104); POTASSIUM 3.7 MMOL/L (3.5-5.1); SODIUM 131 MMOL/L (135-145); TOTAL CARBON DIOXIDE 28.4 MMOL/L (24-32); TOTAL PROTEIN 7.6 G/DL (6.4-8.2); eGFR > 90 ML/MIN
[2022-07-02 22:30] LABS: BASOPHILS % (AUTO) 0.3 % (0-1); EOSINOPHILS # (AUTO) 0.1 X10'3 (0-0.9); EOSINOPHILS % (AUTO) 0.8 % (0-6); HEMATOCRIT 35.8 % (42.0-52.0); LYMPHOCYTES # (AUTO) 0.7 X10'3 (1.1-4.8); LYMPHOCYTES % (AUTO) 8.7 % (21-51); MEAN CORPUSCULAR HEMOGLOBIN 31.5 PG (27.0-31.0); MEAN CORPUSCULAR HGB CONC 36.4 g/dL (33.0-36.5); MEAN CORPUSCULAR VOLUME 86.6 FL (78-98); MEAN PLATELET VOLUME 7.2 FL (7.4-10.4); MONOCYTES # (AUTO) 0.8 X10'3 (0-0.9); MONOCYTES % (AUTO) 9.3 % (2-12); NEUTROPHILS # (AUTO) 6.6 X10'3 (1.8-7.7); NEUTROPHILS % (AUTO) 80.9 % (42-75); PLATELET COUNT 281 X10'3 (140-440); RED BLOOD COUNT 4.14 X10'6 (4.70-6.10); RED CELL DISTRIBUTION WIDTH 13.7 % (11.5-14.5); WHITE BLOOD COUNT 8.1 X10'3 (4.5-11.0)
[2022-07-02] MEDS ORDERED: LORazepam 2 mg/ml vial IV ONE ×2 (22:35→22:43)
[2022-07-02 22:40] LABS: ANISOCYTOSIS FEW; ELLIPTOCYTES FEW; PLATELET ESTIMATE NORMAL; SPHEROCYTES FEW
[2022-07-02] MEDS ORDERED: levetiracetam inj 1,000 MG in normal saline 100ml IV soln 90 ML IV ONE (22:45)
[2022-07-02] MEDS ORDERED: LEVETIRACETAM IV ONE ×2 (23:00)
[2022-07-02] MEDS ORDERED: normal saline 1000ml 1,000 ML IV ONE (23:00)
[2022-07-02] MEDS ORDERED: NORMAL SALINE IV ONE ×2 (23:00)
[2022-07-03 00:07] LABS: CARBAMAZEPINE (TEGRETOL) 5.8 UG/ML (4.0-12.0)
[2022-07-03] MEDS ORDERED: bisacodyl 10mg suppository rectal RC PRN (01:10)
[2022-07-03] MEDS ORDERED: acetaminophen 325mg tablet PO PRN ×2 (01:10)
[2022-07-03] MEDS ORDERED: HYDROcodone/acetaminophen 5mg/325mg tablet PO PRN (01:10)
[2022-07-03] MEDS ORDERED: acetaminophen 650mg rectal suppository RC PRN (01:10)
[2022-07-03] MEDS ORDERED: ondansetron 4mg rapidly disintigrating tab PO PRN (01:10)
[2022-07-03] MEDS ORDERED: mag hydrox/Alum hydrox/simeth 30ml oral suspension PO PRN (01:10)
[2022-07-03] MEDS ORDERED: diphenhydrAMINE 50 mg/ml inj IV PRN (01:10)
[2022-07-03] MEDS ORDERED: ondansetron/PF 4mg/2ml inj IV PRN (01:10)
[2022-07-03] MEDS ORDERED: diphenhydrAMINE 25mg capsule PO PRN (01:10)
[2022-07-03] MEDS ORDERED: magnesium hydroxide 30ml (MOM) UD suspension PO PRN (01:10)
[2022-07-03] MEDS ORDERED: morphine 2 MG/ML inj. syringe IV PRN (01:10)
[2022-07-03] MEDS ORDERED: DEXTROSE 15 GM of carb/4 tabs (each vial/BOTTLE has 4 tablets) PO PRN ×2 (01:15)
[2022-07-03] MEDS ORDERED: MESSAGE TO PHARMACY PO ONE (01:15)
[2022-07-03] MEDS ORDERED: dextrose 50%-water 50ml dispensing syringe IV PRN ×2 (01:15)
[2022-07-03] MEDS ORDERED: glucagon, human recombinant 1mg kit SUBCUT PRN (01:15)
[2022-07-03] MEDS ORDERED: insulin Lispro (HumaLOG) vial - multi-dose SQ SCH (01:15)
[2022-07-03 01:52] LABS: PHOSPHORUS 2.9 MG/DL (2.3-4.5)
[2022-07-03] MEDS: normal saline 1000ml 1,000 ML IV SCH ×3 (01:55→21:10)
[2022-07-03 02:01] LABS: HEMOGLOBIN A1C 6.5 % (4.5-6.2); VALPROATE < 3.0 UG/ML (50-100)
[2022-07-03 02:02] LABS: COLOR,URINE YELLOW (Yellow); GLUCOSE, URINE 500 mg/dl (Neg); KETONES,URINE NEGATIVE (Neg); LEUKOCYTE ESTERASE ,URINE NEGATIVE (Neg); NITRITES, URINE NEGATIVE (Neg); OCCULT BLOOD,URINE TRACE-INTACT (Neg); PROTEIN,URINE TRACE mg/dl (Neg)
[2022-07-03 02:10] LABS: UA COLLECTION TYPE NON-SPECIFIED
[2022-07-03 02:14] LABS: CLARITY,URINE SLIGHTLY CLOUDY (Clear)
[2022-07-03 02:15] LABS: AMORPHOUS PHOSPHATES 1+; BACTERIA,URINE FEW /HPF (Neg); SQUAMOUS EPITHELIAL CELL,UR FEW /LPF (FEW); TRANSITIONAL EPI CELLS,URINE FEW /HPF; WBC,URINE 0-4 /HPF (0-4)
[2022-07-03 02:16] LABS: SPERM FEW /HPF (NEGATIVE)
[2022-07-03 02:24] LABS: URINE AMPHETAMINE SCREEN POSITIVE (Neg); URINE BARBITUATE SCREEN NEGATIVE (Neg); URINE BENZODIAZEPINES SCREEN NEGATIVE (Neg); URINE CANNABINOID SCREEN NEGATIVE (Neg); URINE COCAINE SCREEN NEGATIVE (Neg); URINE METHADONE SCREEN NEGATIVE (Neg); URINE OPIATE SCREEN NEGATIVE (Neg); URINE PHENCYCLIDINE SCREEN NEGATIVE (Neg)
--- NOTE | 2022-07-03 06:29 | NUR ---
Received in bed asleep,bed low with padded side rails.We will monitor.
[2022-07-03] MEDS ORDERED: docusate sod 100mg capsule PO SCH (08:00)
[2022-07-03] MEDS ORDERED: LORazepam 1 MG tablet PO PRN (08:40)
[2022-07-03] MEDS ORDERED: LORazepam 2 mg/ml vial IV PRN (08:40)
[2022-07-03 09:28] LABS: APTT 28 SECONDS (22-32)
--- NOTE | 2022-07-03 09:32 | NUR ---
Patient found standing naked with BM, beddings and gown changed due to BM, unsteady on his feet.Mom called,updated with poc.Breakfast offered, consumed approximately 20%.Did not meet glycemic protocol.We will monitor.
[2022-07-03] MEDS: heparin, porcine 5000 units/ml vial SQ SCH ×2 (09:36→20:38)
[2022-07-03] MEDS: pantoprazole 40mg Tablet.DR PO SCH (09:36)
--- NOTE | 2022-07-03 11:00 | NUR ---
Dr. Martini at bedside.
--- NOTE | 2022-07-03 11:24 | NUR ---
Patient assisted to the bathroom,able to ambulate with 1 person ahnd held assist to due unsteady gait.
[2022-07-03] MEDS ORDERED: CARI3CAP PO (12:15)
[2022-07-03] MEDS ORDERED: CARB200T8 PO (12:15)
[2022-07-03] MEDS ORDERED: LISI20TA28 PO (12:15)
[2022-07-03] MEDS ORDERED: ATOR-2 PO (12:15)
[2022-07-03] MEDS ORDERED: LEVE10006 PO (12:15)
[2022-07-03] MEDS ORDERED: OLAN20TA34 PO (12:15)
[2022-07-03] MEDS ORDERED: PROP20TA6 PO (12:16)
--- NOTE | 2022-07-03 12:49 | NUR ---
Attempted to call report to Silvia Arroyo but not available,will attempt again.
--- NOTE | 2022-07-03 13:25 | NUR ---
Attempted to call brennan Arroyo 2nd attempt, RN in the middle of transfering a patient on a alethea lift.
--- NOTE | 2022-07-03 13:40 | NUR ---
3rd attempt to give report, Dina GILLIAM in the middle of discharging a patient.Mackenzie GILLIAM states she will have Dina call ED RN in 10 minutes.Will inform ED CN.
--- NOTE | 2022-07-03 14:10 | NUR ---
Received Report from Maggie RN at 1345. Patient arrived on floor at 1410. Patient orientated to room and call light.
[2022-07-03 14:30] VITALS: BP 139/61
[2022-07-03 18:00] VITALS: BP 118/66
--- NOTE | 2022-07-03 18:17 | NUR ---
Problems reprioritized. Patient report given, questions answered & plan of care reviewed with Kacey GILLIAM.
[2022-07-03] MEDS: carBAMazepine 100mg chewable tablet PO SCH (20:37)
[2022-07-03] MEDS: levetiracetam 250mg tablet PO SCH (20:37)
[2022-07-03] MEDS ORDERED: temazepam 15mg capsule PO PRN (21:00)
[2022-07-03] MEDS ORDERED: olanzapine 10mg tablet PO SCH (21:00)
[2022-07-03] MEDS ORDERED: insulin glargine (Lantus) pen - multi-dose SQ SCH (21:00)
[2022-07-03 22:00] VITALS: BP 147/90
[2022-07-03] MEDS: CARIPRAZINE 1.5 MG CAPSULE PO SCH (22:31)
--- NOTE | 2022-07-03 23:00 | NUR ---
ELECTRONIC COMMUNICATIONS TECHNICIAN documentation: I have reviewed and agree with all interventions, assessments performed and documented by Kacey Chapman LVN.
[2022-07-04] MEDS: normal saline 1000ml 1,000 ML IV SCH ×2 (04:39→17:10)
[2022-07-04 06:30] LABS: BASOPHILS % (AUTO) 0.7 % (0-1); EOSINOPHILS # (AUTO) 0.2 X10'3 (0-0.9); EOSINOPHILS % (AUTO) 3.7 % (0-6); LYMPHOCYTES # (AUTO) 1.5 X10'3 (1.1-4.8); LYMPHOCYTES % (AUTO) 31.9 % (21-51); MEAN PLATELET VOLUME 7.2 FL (7.4-10.4); MONOCYTES # (AUTO) 0.7 X10'3 (0-0.9); MONOCYTES % (AUTO) 14.2 % (2-12); NEUTROPHILS # (AUTO) 2.3 X10'3 (1.8-7.7); NEUTROPHILS % (AUTO) 49.5 % (42-75); RED CELL DISTRIBUTION WIDTH 13.4 % (11.5-14.5)
--- NOTE | 2022-07-04 06:41 | NUR ---
Patient in room DAMARI 346. I have received report from jacobo GILLIAM and had the opportunity to ask questions and assume patient care. Addendum: 07/04/22 at 0647 by Jeovany Anderson - Student [facility] NURSE IS LILLIE WAGNER RN
--- NOTE | 2022-07-04 06:43 | NUR ---
Patient in room DAMARI 346. I have received report from Kacey MOREIRA and had the opportunity to ask questions and assume patient care.
[2022-07-04 06:44] LABS: ALANINE AMINOTRANSFERASE 18 U/L (12-78); ALBUMIN 3.6 G/DL (3.4-5.0); ALBUMIN/GLOBULIN RATIO 1.1 (1.1-1.5); ALKALINE PHOSPHATASE 80 IU/L (46-116); ANION GAP 7 (8-16); ASPARTATE AMINO TRANSFERASE 14 U/L (10-37); BILIRUBIN,TOTAL 0.4 MG/DL (0.1-1.0); BLOOD UREA NITROGEN 5 MG/DL (7-18); BUN/CREATININE RATIO 7.7 (10.0-20.0); CALCIUM 9.1 MG/DL (8.5-10.1); CHLORIDE 99 MMOL/L (99-107); CREATININE 0.65 MG/DL (0.60-1.10); GLUCOSE 148 MG/DL (70-104); POTASSIUM 3.7 MMOL/L (3.5-5.1); SODIUM 134 MMOL/L (135-145); eGFR > 90 ML/MIN
[2022-07-04 07:20] VITALS: BP 136/86
[2022-07-04 07:20] LABS: HEMOGLOBIN 12.9 g/dl (14.0-17.9); RED BLOOD COUNT 4.13 X10'6 (4.70-6.10); WHITE BLOOD COUNT 4.8 X10'3 (4.5-11.0)
[2022-07-04 07:21] LABS: HEMATOCRIT 37.2 % (42.0-52.0); MEAN CORPUSCULAR HEMOGLOBIN 32.1 PG (27.0-31.0); MEAN CORPUSCULAR HGB CONC 34.6 g/dL (33.0-36.5); MEAN CORPUSCULAR VOLUME 90.1 FL (78-98); PLATELET COUNT 235 X10'3 (140-440)
[2022-07-04] MEDS ORDERED: propranolol 40mg tablet PO SCH (08:00)
[2022-07-04] MEDS ORDERED: lisinopril 20mg tablet PO SCH (08:00)
[2022-07-04] MEDS ORDERED: atorvastatin 20mg tablet PO SCH (08:00)
[2022-07-04] MEDS: heparin, porcine 5000 units/ml vial SQ SCH (08:09)
[2022-07-04] MEDS: pantoprazole 40mg Tablet.DR PO SCH (08:10)
[2022-07-04] MEDS: carBAMazepine 100mg chewable tablet PO SCH (08:10)
[2022-07-04] MEDS: levetiracetam 250mg tablet PO SCH (08:12)
[2022-07-04] MEDS: CARIPRAZINE 1.5 MG CAPSULE PO SCH (08:13)
--- NOTE | 2022-07-04 12:40 | NUR ---
22G IV INSERTED FLUSHED WELL NO PAIN, OLD IV INFILTRATED, OLD CANNULA COMPLETE WHEN DC
[2022-07-04 13:59] VITALS: BP 96/46
--- NOTE | 2022-07-04 14:01 | NUR ---
Student documentation: I have reviewed interventions, assessments performed and documented by Dale DIXON.
--- NOTE | 2022-07-04 17:36 | NUR ---
PT. DISCHARGED, EDUCATION PROVIDED, MOTHER PICKED PT. UP IN PRIVATE CAR, PT. ESCORTED SAFELY OUT, IV CANNULA WHOLE AND INTACT UPON DC, PT. PROVIDED WITH CLOTHES TO WEAR.
--- NOTE | 2022-07-06 11:29 | NUR ---
Received order for consult. Patient was discharged. Left message for patient to call me back.
== END 2022-07-04 17:36 | disposition home or self-care (01) | DRG 101 ==
LOC: ER 19:24 → ED HOLD 07-03 01:14 → SUR 3N 07-03 14:03
PROVIDERS: ADMIT Family Medicine; ATTEND Internal Medicine
PROC: 4A00X4Z Measurement of Central Nervous Electrical Activity, External Approach (ICD-10-PCS; principal; 2022-07-02)
DX: G40.101 Localization-related (focal) (partial) symptomatic epilepsy and epileptic syndromes with simple partial seizures, not intractable, with status epilepticus (principal); E87.1 Hypo-osmolality and hyponatremia; I16.1 Hypertensive emergency; S01.512A Laceration without foreign body of oral cavity, initial encounter; E11.65 Type 2 diabetes mellitus with hyperglycemia; X58.XXXA Exposure to other specified factors, initial encounter; E78.5 Hyperlipidemia, unspecified; K72.90 Hepatic failure, unspecified without coma; F15.129 Other stimulant abuse with intoxication, unspecified; F32.A Depression, unspecified; F20.9 Schizophrenia, unspecified; I10 Essential (primary) hypertension; Z59.00 Homelessness unspecified; Z83.3 Family history of diabetes mellitus; Z86.73 Personal history of transient ischemic attack (TIA), and cerebral infarction without residual deficits; Z88.8 Allergy status to other drugs, medicaments and biological substances; Z79.899 Other long term (current) drug therapy; Z71.51 Drug abuse counseling and surveillance of drug abuser; Y93.89 Activity, other specified; Y92.89 Other specified places as the place of occurrence of the external cause; Y99.8 Other external cause status; Z86.14 Personal history of Methicillin resistant Staphylococcus aureus infection
CPT/HCPCS: 36415; 70450; 80053; 80156; 80164; 80305; 80320; 81001; 82948; 83036; 83605; 83735; 83880; 84100; 85008; 85025; 85610; 85730; 87081; 95816; 97116; 97161; 97530; 99285; G0378; J1644; J1815; J1953; J2060; J7030; J7040

== ENCOUNTER 2022-09-22 02:27 | Emergency (ER) | payer MEDICARE, MEDICAID ==
[~2022-09-22 02:27] MED LIST changes: +ATOR-2 PO; -CARB200T PO; +CARB200T8 PO; +CARI3CAP PO; -DIVA500T9 PO; -IBUP-1984 PO; -METF-436 PO; -OLAN20TA3 PO; +OLAN20TA34 PO
== END 2022-09-22 02:47 | disposition left against medical advice (07) ==
LOC: ER 02:27
DX: R45.851 Suicidal ideations (principal); Z53.21 Procedure and treatment not carried out due to patient leaving prior to being seen by health care provider

== ENCOUNTER 2022-10-21 09:59 | Emergency (ER) | payer MEDICARE, MEDICAID ==
[~2022-10-21] VITALS: Ht 170.2 cm; Wt 72.8 kg
[2022-10-21 10:05] VITALS: TEMP 97.7
[2022-10-21 11:43] LABS: BASOPHILS % (AUTO) 0.5 % (0-1); EOSINOPHILS # (AUTO) 0.2 X10'3 (0-0.9); EOSINOPHILS % (AUTO) 4.3 % (0-6); LYMPHOCYTES # (AUTO) 1.1 X10'3 (1.1-4.8); LYMPHOCYTES % (AUTO) 19.9 % (21-51); MEAN PLATELET VOLUME 7.9 FL (7.4-10.4); MONOCYTES # (AUTO) 0.5 X10'3 (0-0.9); MONOCYTES % (AUTO) 8.5 % (2-12); NEUTROPHILS # (AUTO) 3.8 X10'3 (1.8-7.7); NEUTROPHILS % (AUTO) 66.8 % (42-75); PLATELET COUNT 175 X10'3 (140-440); WHITE BLOOD COUNT 5.7 X10'3 (4.5-11.0)
[2022-10-21 11:56] LABS: APTT 26 SECONDS (22-32)
[2022-10-21 11:58] LABS: ALANINE AMINOTRANSFERASE 17 U/L (12-78); ALBUMIN 4.1 G/DL (3.4-5.0); ALBUMIN/GLOBULIN RATIO 1.3 (1.1-1.5); ALKALINE PHOSPHATASE 100 IU/L (46-116); ANION GAP 9 (8-16); ASPARTATE AMINO TRANSFERASE 14 U/L (10-37); BILIRUBIN,TOTAL 0.4 MG/DL (0.1-1.0); BLOOD UREA NITROGEN 5 MG/DL (7-18); CHLORIDE 97 MMOL/L (99-107); CREATININE 0.71 MG/DL (0.60-1.10); GLUCOSE 157 MG/DL (70-104); POTASSIUM 3.1 MMOL/L (3.5-5.1); SODIUM 135 MMOL/L (135-145); TOTAL PROTEIN 7.2 G/DL (6.4-8.2); eGFR > 90 ML/MIN
[2022-10-21 12:02] LABS: OCCULT BLOOD STOOL NEGATIVE (Neg)
[2022-10-21] MEDS ORDERED: DOCU-148 PO (12:28)
[2022-10-21] MEDS ORDERED: PHEN1SUP96 PR (12:28)
[2022-10-21 12:36] LABS: HEMATOCRIT 33.8 % (42.0-52.0); MEAN CORPUSCULAR HEMOGLOBIN 31.3 PG (27.0-31.0); MEAN CORPUSCULAR VOLUME 88.4 FL (78-98); RED BLOOD COUNT 3.82 X10'6 (4.70-6.10)
[2022-10-21 12:37] LABS: MEAN CORPUSCULAR HGB CONC 35.5 g/dL (33.0-36.5); RED CELL DISTRIBUTION WIDTH 14.8 % (11.5-14.5)
[2022-10-21] MEDS ORDERED: potassium Cl 20 mEq SR tablet PO STA (12:44)
[2022-10-21 12:52] VITALS: BP 144/67; PULSE 95; RESP 18; O2SAT 100
== END 2022-10-21 12:56 | disposition home or self-care (01) ==
LOC: ER 10:00
DX: K64.9 Unspecified hemorrhoids (principal); E11.9 Type 2 diabetes mellitus without complications; F31.9 Bipolar disorder, unspecified; F20.9 Schizophrenia, unspecified; F15.10 Other stimulant abuse, uncomplicated; I10 Essential (primary) hypertension; Z88.8 Allergy status to other drugs, medicaments and biological substances; Z88.6 Allergy status to analgesic agent; Z79.899 Other long term (current) drug therapy
CPT/HCPCS: 80053; 82272; 85025; 85610; 85730; 99283

== ENCOUNTER 2022-11-16 11:58 | Emergency (ER) | payer MEDICARE, MEDICAID ==
[~2022-11-16] VITALS: Ht 167.6 cm; Wt 84.1 kg
[~2022-11-16 11:58] MED LIST changes: +DOCU-148 PO; +PHEN1SUP96 PR
[2022-11-16 12:02] VITALS: TEMP 98
[2022-11-16 12:49] VITALS: RESP 20
[2022-11-16] MEDS ORDERED: cloNIDine 0.1 mg tablet PO SCH (14:06)
[2022-11-16 15:09] VITALS: BP 157/89; PULSE 93; O2SAT 97
[2022-11-17] MEDS ORDERED: CARI4.5C PO (17:52)
[2022-11-17] MEDS ORDERED: OLAN5TAB75 PO (17:52)
[2022-11-17] MEDS ORDERED: FOLI1TAB27 PO (17:52)
[2022-11-17] MEDS ORDERED: METF-1203 PO (17:52)
[2022-11-17] MEDS ORDERED: IBUP-2697 PO (17:52)
[2022-11-17] MEDS ORDERED: DOCU100C40 PO (17:55)
[2022-11-17] MEDS ORDERED: folic acid PO (20:48)
== END 2022-11-16 15:12 | disposition home or self-care (01) ==
LOC: ER 11:59
DX: I10 Essential (primary) hypertension; Z86.14 Personal history of Methicillin resistant Staphylococcus aureus infection; Z88.8 Allergy status to other drugs, medicaments and biological substances; Z79.899 Other long term (current) drug therapy
CPT/HCPCS: 99285

== ENCOUNTER 2022-11-17 16:07 | Emergency (ER) | payer MEDICARE, MEDICAID ==
[~2022-11-17] VITALS: Ht 170.2 cm; Wt 78.8 kg
[2022-11-17] MEDS ORDERED: METF-1203 PO (17:52)
[2022-11-17] MEDS ORDERED: FOLI1TAB27 PO (17:52)
[2022-11-17] MEDS ORDERED: IBUP-2697 PO (17:52)
[2022-11-17] MEDS ORDERED: OLAN5TAB75 PO (17:52)
[2022-11-17] MEDS ORDERED: CARI4.5C PO (17:52)
[2022-11-17] MEDS ORDERED: DOCU100C40 PO (17:55)
[2022-11-17 19:54] LABS: WHITE BLOOD COUNT 7.1 X10'3 (4.5-11.0)
[2022-11-17 19:56] LABS: BASOPHILS % (AUTO) 0.4 % (0-1); EOSINOPHILS # (AUTO) 0.2 X10'3 (0-0.9); EOSINOPHILS % (AUTO) 2.5 % (0-6); LYMPHOCYTES # (AUTO) 1.3 X10'3 (1.1-4.8); LYMPHOCYTES % (AUTO) 18.5 % (21-51); MEAN PLATELET VOLUME 7.9 FL (7.4-10.4); MONOCYTES # (AUTO) 0.8 X10'3 (0-0.9); MONOCYTES % (AUTO) 10.7 % (2-12); NEUTROPHILS # (AUTO) 4.8 X10'3 (1.8-7.7); NEUTROPHILS % (AUTO) 67.9 % (42-75); PLATELET COUNT 200 X10'3 (140-440)
[2022-11-17 20:06] LABS: ALANINE AMINOTRANSFERASE 17 U/L (12-78); ALBUMIN 4.6 G/DL (3.4-5.0); ALBUMIN/GLOBULIN RATIO 1.4 (1.1-1.5); ALKALINE PHOSPHATASE 96 IU/L (46-116); ANION GAP 7 (8-16); ASPARTATE AMINO TRANSFERASE 17 U/L (10-37); BILIRUBIN,TOTAL 0.3 MG/DL (0.1-1.0); BLOOD UREA NITROGEN 6 MG/DL (7-18); BUN/CREATININE RATIO 8.3 (10.0-20.0); CALCIUM 9.1 MG/DL (8.5-10.1); CHLORIDE 92 MMOL/L (99-107); CREATININE 0.72 MG/DL (0.60-1.10); ETHANOL < 10 MG/DL (<10); GLUCOSE 164 MG/DL (70-104); POTASSIUM 3.8 MMOL/L (3.5-5.1); SODIUM 129 MMOL/L (135-145); TOTAL CARBON DIOXIDE 30.1 MMOL/L (24-32); TOTAL PROTEIN 7.9 G/DL (6.4-8.2); eCRCL 110 ML/MIN; eGFR > 90 ML/MIN
[2022-11-17 20:16] LABS: URINE AMPHETAMINE SCREEN POSITIVE (Neg); URINE BARBITUATE SCREEN NEGATIVE (Neg); URINE BENZODIAZEPINES SCREEN NEGATIVE (Neg); URINE CANNABINOID SCREEN NEGATIVE (Neg); URINE COCAINE SCREEN NEGATIVE (Neg); URINE METHADONE SCREEN NEGATIVE (Neg); URINE OPIATE SCREEN NEGATIVE (Neg); URINE PHENCYCLIDINE SCREEN NEGATIVE (Neg)
[2022-11-17 20:37] LABS: HEMOGLOBIN 12.4 g/dl (14.0-17.9); MEAN CORPUSCULAR HEMOGLOBIN 31.1 PG (27.0-31.0); MEAN CORPUSCULAR HGB CONC 35.5 g/dL (33.0-36.5); MEAN CORPUSCULAR VOLUME 87.7 FL (78-98); RED BLOOD COUNT 3.99 X10'6 (4.70-6.10); RED CELL DISTRIBUTION WIDTH 13.3 % (11.5-14.5)
[2022-11-17] MEDS ORDERED: folic acid PO (20:48)
--- NOTE | 2022-11-17 20:50 | NUR ---
The patient ambulated to bed 22 from the main ER. He was cooperative with the move. He stated that his mother brought him in because he was hearing voices. "I've been off my meds for the past two weeks...Voices all over town. On and on" Telling him to kill himself and to "go fuck myself" He reports suicidal thoughts to walk in front of a truck" He was asked about positive amphetamine results in his drug screen and stated he only used a little then stated "I was probably sitting next to someone who was smoking it" He has a seizure hx and last sz was 2-3 weeks ago. He stated that he lives with his mother.
--- NOTE | 2022-11-17 21:03 | NUR ---
PACKET SENT TO [facility]
--- NOTE | 2022-11-17 21:36 | NUR ---
The patient is asleep on his bed.
[2022-11-17] MEDS ORDERED: ibuprofen 200mg tablet PO PRN (22:15)
[2022-11-17] MEDS ORDERED: OLANZAPINE 5 MG TABLET PO SCH (22:16)
[2022-11-17] MEDS: levetiracetam 250mg tablet PO SCH (22:20)
[2022-11-17] MEDS: carBAMazepine 100mg chewable tablet PO SCH (22:23)
--- NOTE | 2022-11-17 23:32 | NUR ---
The patient appears to be sleeping
--- NOTE | 2022-11-18 01:20 | NUR ---
The patient appears to be sleeping
--- NOTE | 2022-11-18 03:00 | NUR ---
The patient appears to be sleeping
--- NOTE | 2022-11-18 05:04 | NUR ---
The patient appears to be sleeping
--- NOTE | 2022-11-18 06:53 | NUR ---
Pt resting in bed with eyes closed. Respirations equal and unlabored. No acute distrerss noted at this time.
[2022-11-18] MEDS ORDERED: metFORMIN 500mg tablet PO SCH (07:30)
[2022-11-18] MEDS ORDERED: CARIPRAZINE 1.5 MG CAPSULE PO SCH (08:00)
[2022-11-18] MEDS ORDERED: lisinopril 20mg tablet PO SCH (08:00)
[2022-11-18] MEDS ORDERED: docusate sod 100mg capsule PO SCH (08:00)
[2022-11-18] MEDS ORDERED: atorvastatin 20mg tablet PO SCH (08:00)
[2022-11-18] MEDS ORDERED: folic acid 1mg tablet PO SCH (08:00)
--- NOTE | 2022-11-18 08:09 | NUR ---
Pt up and used the bathroom. Took morning meds with no issues. Pt currently up eating breakfast. No acute distress noted at this time.
[2022-11-18] MEDS: carBAMazepine 100mg chewable tablet PO SCH (09:14)
[2022-11-18] MEDS: levetiracetam 250mg tablet PO SCH (09:16)
--- NOTE | 2022-11-18 09:35 | NUR ---
Pt currently resting in bed with eyes closed. No acute distress noted at this time.
--- NOTE | 2022-11-18 10:17 | NUR ---
Pt resting in bed with eyes closed. Respirations equal and unlabored. No acute distress noted at this time.
--- NOTE | 2022-11-18 11:36 | NUR ---
Met with patient in regards to substance use and to see if patient was interested in resources for treatment options. Patient declined.
--- NOTE | 2022-11-18 11:48 | NUR ---
Pt currently resting in bed. respirations equal and unlabored. No acute distress noted at this time.
--- NOTE | 2022-11-18 12:36 | NUR ---
Pt resting in bed eyes closed. Respirations equal and unlabored. No acute distress noted at this time.
--- NOTE | 2022-11-18 13:24 | NUR ---
1315 received report from [facility] assuming care of pt sleeping quietly wiley position L side resps even and unlabored room secure pt direct observation of nsg station
[2022-11-18 13:49] VITALS: BP 154/83; PULSE 84; RESP 16; TEMP 98.3; O2SAT 99
== END 2022-11-18 14:09 | disposition home or self-care (01) ==
LOC: ER 16:09
DX: F20.9 Schizophrenia, unspecified (principal); Z20.822 Contact with and (suspected) exposure to COVID-19; F32.A Depression, unspecified; I10 Essential (primary) hypertension; E11.9 Type 2 diabetes mellitus without complications; F15.10 Other stimulant abuse, uncomplicated
CPT/HCPCS: 36415; 80053; 80305; 80320; 85025; 87811; 99285

== ENCOUNTER 2022-11-26 09:50 | Emergency (ER) | payer MEDICARE, MEDICAID ==
[~2022-11-26 09:50] MED LIST changes: -CARI3CAP PO; +CARI4.5C PO; -DOCU-148 PO; +DOCU100C40 PO; +IBUP-2697 PO; +METF-1203 PO; -OLAN20TA34 PO; +OLAN5TAB75 PO; -PHEN1SUP96 PR; -PROP20TA6 PO; +folic acid PO
== END 2022-11-26 13:01 | disposition left against medical advice (07) ==
LOC: ER 09:51
DX: Z00.00 Encounter for general adult medical examination without abnormal findings (principal); Z53.21 Procedure and treatment not carried out due to patient leaving prior to being seen by health care provider

== ENCOUNTER 2022-12-12 10:00 | Inpatient (IN) | payer MEDICARE, MEDICAID ==
[~2022-12-12] VITALS: Ht 170.2 cm; Wt 78.8 kg
[2022-12-12 10:51] VITALS: BP 163/88; PULSE 106; RESP 22; TEMP 98.1; O2SAT 96
[2022-12-12] MEDS ORDERED: normal saline 1000ml 1,000 ML IV ONE (11:15)
[2022-12-12] MEDS ORDERED: levetiracetam inj 1,000 MG in normal saline 100ml IV soln 100 ML IV SCH (11:19)
[2022-12-12 11:39] LABS: EOSINOPHILS % (AUTO) 0.2 % (0-6); LYMPHOCYTES # (AUTO) 0.4 X10'3 (1.1-4.8); LYMPHOCYTES % (AUTO) 4.1 % (21-51); MONOCYTES # (AUTO) 0.5 X10'3 (0-0.9)
[2022-12-12 11:41] LABS: BASOPHILS % (AUTO) 0.2 % (0-1); MEAN CORPUSCULAR HEMOGLOBIN 32.1 PG (27.0-31.0); MEAN CORPUSCULAR HGB CONC 35.8 g/dL (33.0-36.5); MEAN CORPUSCULAR VOLUME 89.5 FL (78-98); MEAN PLATELET VOLUME 7.9 FL (7.4-10.4); MONOCYTES % (AUTO) 6.2 % (2-12); NEUTROPHILS # (AUTO) 7.7 X10'3 (1.8-7.7); NEUTROPHILS % (AUTO) 89.3 % (42-75); PLATELET COUNT 234 X10'3 (140-440); RED BLOOD COUNT 4.36 X10'6 (4.70-6.10); RED CELL DISTRIBUTION WIDTH 13.4 % (11.5-14.5); WHITE BLOOD COUNT 8.7 X10'3 (4.5-11.0)
[2022-12-12 11:50] LABS: ALANINE AMINOTRANSFERASE 21 U/L (12-78); ALBUMIN 4.3 G/DL (3.4-5.0); ALBUMIN/GLOBULIN RATIO 1.2 (1.1-1.5); ALKALINE PHOSPHATASE 90 IU/L (46-116); ANION GAP 8 (8-16); ASPARTATE AMINO TRANSFERASE 19 U/L (10-37); BILIRUBIN,TOTAL 0.3 MG/DL (0.1-1.0); BLOOD UREA NITROGEN 11 MG/DL (7-18); BUN/CREATININE RATIO 10.5 (10.0-20.0); CALCIUM 9.8 MG/DL (8.5-10.1); CHLORIDE 96 MMOL/L (99-107); CREATININE 1.05 MG/DL (0.60-1.10); GLUCOSE 262 MG/DL (70-104); POTASSIUM 4.5 MMOL/L (3.5-5.1); SODIUM 131 MMOL/L (135-145); TOTAL CARBON DIOXIDE 26.9 MMOL/L (24-32); TOTAL PROTEIN 7.8 G/DL (6.4-8.2); eCRCL 75 ML/MIN; eGFR 74 ML/MIN
[2022-12-12 11:53] LABS: ETHANOL < 10 MG/DL (<10); MAGNESIUM 2.5 MG/DL (1.5-2.4)
[2022-12-12 12:57] LABS: URINE AMPHETAMINE SCREEN NEGATIVE (Neg); URINE BARBITUATE SCREEN NEGATIVE (Neg); URINE BENZODIAZEPINES SCREEN NEGATIVE (Neg); URINE CANNABINOID SCREEN NEGATIVE (Neg); URINE COCAINE SCREEN NEGATIVE (Neg); URINE METHADONE SCREEN NEGATIVE (Neg); URINE OPIATE SCREEN NEGATIVE (Neg); URINE PHENCYCLIDINE SCREEN NEGATIVE (Neg)
[2022-12-12] MEDS ORDERED: potassium Cl 20 mEq SR tablet PO PRN ×2 (15:15)
[2022-12-12] MEDS ORDERED: HYDROcodone/acetaminophen 5mg/325mg tablet PO PRN (15:15)
[2022-12-12] MEDS ORDERED: acetaminophen 325mg tablet PO PRN (15:15)
[2022-12-12] MEDS ORDERED: magnesium Cl slow-release 64mg tablet PO PRN (15:15)
[2022-12-12] MEDS ORDERED: magnesium 4gm in 100ml NS 100 ML IV PRN (15:15)
[2022-12-12] MEDS ORDERED: magnesium 2GM in 50ml NS 50 ML IV PRN (15:15)
[2022-12-12] MEDS ORDERED: potassium Cl 40MEQ/1/2NS 520ml 520 ML IV PRN (15:15)
[2022-12-12] MEDS ORDERED: morphine 2 MG/ML inj. syringe IV PRN (15:15)
--- NOTE | 2022-12-12 15:31 | NUR ---
Per Dr. Shrestha, patient will be discharged not admitted.
--- NOTE | 2022-12-12 15:45 | NUR ---
I did called patient's mother a while ago to let her know patient will be discharge and that he will need a shirt to wear. Patient mother confirmed to me that she lives with her son and will be able to help him for his needs.
[2022-12-12] MEDS ORDERED: K and/or MAG REPLACEMENT MC SCH (20:00)
[2022-12-13] MEDS ORDERED: enoxaparin 40mg/0.4ml syringe SUBCUT SCH (08:00)
== END 2022-12-12 16:17 | disposition home or self-care (01) | DRG 101 ==
LOC: ER 10:01 → ED HOLD 15:23
PROVIDERS: ADMIT Internal Medicine; ATTEND Internal Medicine
DX: G40.909 Epilepsy, unspecified, not intractable, without status epilepticus (principal); E87.1 Hypo-osmolality and hyponatremia; E11.9 Type 2 diabetes mellitus without complications; F20.9 Schizophrenia, unspecified; F32.A Depression, unspecified; K72.90 Hepatic failure, unspecified without coma; I10 Essential (primary) hypertension; Z90.49 Acquired absence of other specified parts of digestive tract; Z83.3 Family history of diabetes mellitus; Z88.8 Allergy status to other drugs, medicaments and biological substances; Z79.899 Other long term (current) drug therapy; Z59.00 Homelessness unspecified
CPT/HCPCS: 36415; 70450; 80053; 80305; 80320; 83735; 84484; 85025; 99285; A4615; G0378; J1953; J3490; J7030

== ENCOUNTER 2023-08-22 13:32 | Emergency (ER) | payer MEDICARE, MEDICAID ==
[~2023-08-22] VITALS: Ht 170.2 cm; Wt 86.0 kg
[2023-08-22 14:18] LABS: BASOPHILS % (AUTO) 0.4 % (0-1); EOSINOPHILS # (AUTO) 0.1 X10'3 (0-0.9); EOSINOPHILS % (AUTO) 0.5 % (0-6); HEMATOCRIT 41.5 % (42.0-52.0); HEMOGLOBIN 14.6 g/dl (14.0-17.9); LYMPHOCYTES # (AUTO) 1.2 X10'3 (1.1-4.8); LYMPHOCYTES % (AUTO) 9.6 % (21-51); MEAN CORPUSCULAR HEMOGLOBIN 31.2 PG (27.0-31.0); MEAN CORPUSCULAR HGB CONC 35.1 g/dL (33.0-36.5); MEAN PLATELET VOLUME 8.1 FL (7.4-10.4); MONOCYTES # (AUTO) 1.5 X10'3 (0-0.9); MONOCYTES % (AUTO) 11.3 % (2-12); NEUTROPHILS # (AUTO) 10.1 X10'3 (1.8-7.7); NEUTROPHILS % (AUTO) 78.2 % (42-75); PLATELET COUNT 262 X10'3 (140-440); RED BLOOD COUNT 4.66 X10'6 (4.70-6.10); RED CELL DISTRIBUTION WIDTH 13.7 % (11.5-14.5); WHITE BLOOD COUNT 12.9 X10'3 (4.5-11.0)
[2023-08-22] MEDS: normal saline 1000ML IV soln IVB ONE (14:19)
[2023-08-22] MEDS: levetiracetam 250mg tablet PO ONE (14:19)
[2023-08-22 14:22] LABS: ALBUMIN 4.4 G/DL (3.4-5.0); ANION GAP 11 (8-16); BLOOD UREA NITROGEN 15 MG/DL (7-18); BUN/CREATININE RATIO 10.3 (10.0-20.0); CALCIUM 9.7 MG/DL (8.5-10.1); CHLORIDE 92 MMOL/L (99-107); CREATININE 1.46 MG/DL (0.60-1.10); GLUCOSE 179 MG/DL (70-104); POTASSIUM 4.1 MMOL/L (3.5-5.1); SODIUM 127 MMOL/L (135-145); TOTAL CARBON DIOXIDE 23.7 MMOL/L (24-32); eCRCL 53 ML/MIN; eGFR 50 ML/MIN
[2023-08-22] MEDS: carBAMazepine 100mg chewable tablet PO ONE (14:34)
[2023-08-22 15:49] VITALS: BP 123/71; PULSE 116; RESP 16; TEMP 97.9; O2SAT 99
== END 2023-08-22 15:51 | disposition home or self-care (01) ==
LOC: ER 13:32
DX: R56.9 Unspecified convulsions (principal); R53.1 Weakness; E86.0 Dehydration; I10 Essential (primary) hypertension; E11.9 Type 2 diabetes mellitus without complications; F32.A Depression, unspecified; F20.9 Schizophrenia, unspecified; Z90.49 Acquired absence of other specified parts of digestive tract; F10.90 Alcohol use, unspecified, uncomplicated; F15.90 Other stimulant use, unspecified, uncomplicated; Z59.00 Homelessness unspecified; Z88.8 Allergy status to other drugs, medicaments and biological substances; Z79.899 Other long term (current) drug therapy; Z79.84 Long term (current) use of oral hypoglycemic drugs
CPT/HCPCS: 36415; 80048; 85025; 96360; 99283; J7030

== ENCOUNTER 2024-06-10 16:23 | Emergency (ER) | payer MEDICARE, MEDICAID ==
[~2024-06-10] VITALS: Ht 167.6 cm; Wt 90.4 kg
[2024-06-10] MEDS ORDERED: levetiracetam inj 1,000 MG in normal saline 100ml IV soln 100 ML IV STA (17:34)
[2024-06-10] MEDS: normal saline 1000ML IV soln IVB ONE (17:42)
[2024-06-10] MEDS: levetiracetam-NACL1000mg/100ml 100 ML IV STA (17:42)
[2024-06-10 17:56] LABS: ALBUMIN 4.1 G/DL (3.4-5.0); ANION GAP 9 (8-16); BLOOD UREA NITROGEN 8 MG/DL (7-18); BUN/CREATININE RATIO 10.4 (10.0-20.0); CHLORIDE 96 MMOL/L (99-107); CREATININE 0.77 MG/DL (0.60-1.10); GLUCOSE 200 MG/DL (70-104); SODIUM 132 MMOL/L (135-145); TOTAL CARBON DIOXIDE 26.8 MMOL/L (24-32); eCRCL 98 ML/MIN; eGFR > 90 ML/MIN
[2024-06-10 18:35] LABS: BASOPHILS % (AUTO) 0.4 % (0-1); EOSINOPHILS # (AUTO) 0.1 X10'3 (0-0.9); EOSINOPHILS % (AUTO) 0.7 % (0-6); HEMATOCRIT 37.5 % (42.0-52.0); HEMOGLOBIN 13.2 g/dl (14.0-17.9); LYMPHOCYTES # (AUTO) 0.6 X10'3 (1.1-4.8); LYMPHOCYTES % (AUTO) 6.4 % (21-51); MEAN CORPUSCULAR HEMOGLOBIN 31.2 PG (27.0-31.0); MEAN CORPUSCULAR HGB CONC 35.2 g/dL (33.0-36.5); MEAN CORPUSCULAR VOLUME 88.6 FL (78-98); MEAN PLATELET VOLUME 7.3 FL (7.4-10.4); MONOCYTES # (AUTO) 0.9 X10'3 (0-0.9); MONOCYTES % (AUTO) 10.5 % (2-12); NEUTROPHILS # (AUTO) 7.1 X10'3 (1.8-7.7); PLATELET COUNT 229 X10'3 (140-440); RED BLOOD COUNT 4.23 X10'6 (4.70-6.10); RED CELL DISTRIBUTION WIDTH 13.8 % (11.5-14.5); WHITE BLOOD COUNT 8.6 X10'3 (4.5-11.0)
[2024-06-10 19:08] VITALS: TEMP 98.7
[2024-06-10] MEDS ORDERED: CARI6CAP PO (19:21)
[2024-06-10] MEDS: metoprolol tartrate 50mg tablet PO ONE (20:40)
[2024-06-10 20:42] VITALS: BP 191/91; PULSE 93; RESP 20; O2SAT 98
== END 2024-06-10 21:04 | disposition home or self-care (01) ==
LOC: ER 16:23
DX: R56.9 Unspecified convulsions (principal); E11.9 Type 2 diabetes mellitus without complications; F20.9 Schizophrenia, unspecified; I10 Essential (primary) hypertension; F15.90 Other stimulant use, unspecified, uncomplicated; F10.90 Alcohol use, unspecified, uncomplicated; Z88.8 Allergy status to other drugs, medicaments and biological substances; Z90.49 Acquired absence of other specified parts of digestive tract; Y90.9 Presence of alcohol in blood, level not specified
CPT/HCPCS: 36415; 80048; 82948; 85025; 96365; 99285; J1953; J7030

== ENCOUNTER 2024-10-16 12:21 | Emergency (ER) | payer MEDICARE, MEDICAID ==
[~2024-10-16] VITALS: Ht 170.2 cm; Wt 87.7 kg
[~2024-10-16 12:21] MED LIST changes: +ASPI-1475 PO; -CARI4.5C PO; +CARI6CAP PO; -LEVE10006 PO; +LEVE750T PO; -METF-1203 PO; +OLAN20TA81 PO; -OLAN5TAB75 PO; +PER5325T PO; +TIZA-205 PO
[2024-10-16 13:18] LABS: MEAN PLATELET VOLUME 7.4 FL (7.4-10.4)
[2024-10-16 13:34] LABS: CREATININE 0.74 MG/DL (0.60-1.10); TOTAL CARBON DIOXIDE 25.7 MMOL/L (24-32); eCRCL 104 ML/MIN; eGFR > 90 ML/MIN
[2024-10-16 14:05] LABS: RED CELL DISTRIBUTION WIDTH 14.2 % (11.5-14.5)
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
--- NOTE | 2024-10-16 15:33 | RADIOLOGY REPORT ---
Exam: CT CT ABDOMEN PELVIS History: abdominal pain Comparison Study: None Technique: Multidetector spiral CT of the abdomen and pelvis was performed from lung bases to pubic symphysis. Imaging was performed without IV contrast. Axial, coronal and sagittal multiplanar reform ats were obtained from the axial data set by the technologist. Radiation dose : Abdomen/Pelvis: CTDIvol 21 mGy, DLP 1243 mGy*cm. Findings: Evaluation of solid organs is limited due to lack of intravenous contrast use. Lung Bases: No acute or significant lung base finding. Normal heart size. No pleural or pericardial effusion. Liver: The liver is normal in size. No focal lesions. Gallbladder and biliary Tree: Unremarkable Spleen: Enlarged Pancreas: The pancreas is grossly normal in appearance. Adrenal Glands: Left adrenal nodule measuring up to 33 mm. Kidneys: Kidneys are grossly normal without calculi or hydronephrosis. Bladder: Grossly unremarkable for degree of distention. Bowel: The stomach is grossly normal in appearance. Small bowel and colon are normal in caliber and d istribution. The appendix is not visualized; however, no secondary findings of acute appendicitis romy ntified. Wall thickening in the rectosigmoid colon could be due to underdistention. Ascites: Absent Lymphadenopathy: No mesenteric, retroperitoneal or periportal lymphadenopathy. Abdominal wall and Mesentery: Unremarkable. Vasculature: Calcified atherosclerotic disease. Pelvic Organs: Unremarkable Musculoskeletal: No aggressive focal bony lesions, acute fractures or dislocation. IMPRESSION: 1. No acute abdominal or pelvic findings. Splenomegaly. Left adrenal nodule measuring up to 33 mm. Wa [address] thickening in the rectosigmoid colon could be due to underdistention. Calcified atherosclerotic di sease. Clinical correlation and continued follow-up is recommended. Radiation optimization: All CT scans at this facility use at least one of these dose optimization ki hniques: Automated exposure control mA and/or kV adjustment per patient size (includes targeted exams where dose is matched to clinical indication) or iterative reconstruction. HS:Y
--- NOTE | 2024-10-16 16:15 | ELECTROCARDIOGRAPH REPORT ---
[facility] Test Date: 2024-10-16 Test Time: 16:12:56 Pat Name: ADALID DRAKE Department: [facility] Patient ID: [id number] Room: Gender: M [employer]: : 1970 Requested By: MO ORTEGA Order Number: [id number] Reading MD: Dr. Codey Bah Measurements Intervals [place] Rate: 92 P: 52 NV: 161 QRS: 58 QRSD: 95 T: 32 QT: 331 QTc: 410 Interpretive Statements Sinus rhythm Baseline wander in lead(s) V3 Electronically Signed On 10-16-2024 19:43:[address] Codey Bah Please click the below link to view image of tracing.
[2024-10-16 16:43] VITALS: BP 174/88; PULSE 91; O2SAT 99
--- NOTE | 2024-10-16 16:50 | RADIOLOGY REPORT ---
CHEST RADIOGRAPH Indication: SOB Technique: Single frontal view of the chest was obtained Comparison: CT CT CHEST on DOS: 06/25/24, CHEST,SINGLE VIEW on DOS: 03/06/21 FINDINGS: Lines and Tubes: None Lungs: No focal consolidation. Pleura: No effusion. No pneumothorax. Cardiomediastinal contours: Unremarkable Bones: No acute osseous abnormality. IMPRESSION: No acute cardiopulmonary disease.
[2024-10-16 16:58] VITALS: RESP 18
[2024-10-16] MEDS: HYDROcodone/acetaminophen 10/325mg tab PO ONE (16:58)
[2024-10-16 17:30] VITALS: TEMP 97.1
== END 2024-10-16 17:33 | disposition home or self-care (01) ==
LOC: ER 12:22
DX: S22.41XA Multiple fractures of ribs, right side, initial encounter for closed fracture (principal); R10.11 Right upper quadrant pain; F20.9 Schizophrenia, unspecified; E11.9 Type 2 diabetes mellitus without complications; I10 Essential (primary) hypertension; F15.90 Other stimulant use, unspecified, uncomplicated; F32.A Depression, unspecified; Z88.8 Allergy status to other drugs, medicaments and biological substances; Z90.49 Acquired absence of other specified parts of digestive tract; Z79.82 Long term (current) use of aspirin; Z79.899 Other long term (current) drug therapy; Z59.00 Homelessness unspecified; X58.XXXA Exposure to other specified factors, initial encounter; Y93.89 Activity, other specified; Y92.89 Other specified places as the place of occurrence of the external cause; Y99.8 Other external cause status
CPT/HCPCS: 36415; 71045; 80053; 82150; 83690; 85025; 93005; 99284; 99285